=== PATIENT | female | born 1975 | race Two or more races ===

== ENCOUNTER 2020-05-08 12:15 | Outpatient (REF) | payer MEDICAID, SELFPAY | END 2020-05-08 12:16 | disposition home or self-care (01) | LOC: HO.LAB 12:15 | PROVIDERS: Visit Provider Internal Medicine | DX: Z20.828 Contact with and (suspected) exposure to other viral communicable diseases (principal) | CPT/HCPCS: U0003 ==

== ENCOUNTER 2020-06-06 09:46 | Outpatient (REF) | payer MEDICAID, SELFPAY ==
--- NOTE | 2020-06-06 | MM_ITS ---
EXAMINATION: MM SCREENING DIGITAL BREAST TOMOSYNTHESIS, BILATERAL CLINICAL INFORMATION: Screening. Asymptomatic. The lifetime risk of breast cancer based on the Tyrer-Cuzick Model is 6%. COMPARISON: Mammography: 03/28/2019, 03/04/2018, 02/05/2017 TECHNIQUE: Digital breast tomosynthesis is performed in both the craniocaudal and mediolateral oblique views along with computer-aided detection (CAD). Synthesized 2D images are generated from the tomosynthesis. FINDINGS: The breasts are heterogeneously dense, which may obscure small masses (ACR BI-RADS breast composition Category c). There are no significant masses, abnormal calcifications, or other abnormalities. The axilla and skin contours are unremarkable. No significant changes from prior studies. Incidental small intramammary node posterior 9:00 left breast again noted as incidental finding. MM/MM tomosynthesis screening BI IMPRESSION: No mammographic evidence of malignancy. ASSESSMENT: BI-RADS 2: Benign RECOMMENDATION: Routine annual mammography screening. This patient's information was entered into a reminder system with a target due date for their next mammogram.
== END 2020-06-06 09:47 | disposition home or self-care (01) ==
LOC: HO.MAMMO 09:46
PROVIDERS: PCP Family Medicine; Visit Provider Family Medicine
DX: Z12.31 Encounter for screening mammogram for malignant neoplasm of breast (principal)
CPT/HCPCS: 77063; 77067

== ENCOUNTER 2020-07-02 12:50 | Outpatient (REF) | payer MEDICAID, SELFPAY | END 2020-07-02 12:51 | disposition home or self-care (01) | LOC: HO.LAB 12:50 | PROVIDERS: PCP Family Medicine; Visit Provider Internal Medicine | DX: Z20.822 Contact with and (suspected) exposure to COVID-19 (principal) | CPT/HCPCS: 36415; C9803; U0003 ==

== ENCOUNTER 2020-12-26 15:12 | Emergency (ER) | payer MEDICAID, SELFPAY ==
[2020-12-26 16:40] VITALS: BP 126/78; PULSE 99; RESP 16; TEMP 36.9; O2SAT 98; BMI 27.3
--- NOTE | 2020-12-26 16:46 | ED_ITS ---
HPI - General Adult General Chief complaint: Abdominal Pain Stated complaint: wa Time Seen by Provider: 12/26/20 16:45 Source: patient Mode of arrival: ambulatory Limitations: no limitations History of Present Illness HPI narrative: 45 yo female presenting with painful burning with urination for the last 2 days. She also has right lower back pain that comes around to the front of her abdomen. She denies fever, chills, N/V/D. She has a history of UTIs and states this feels the same to prior episodes/ MD complaint: dysuria Onset (ago): day(s) (2) Location: genitals Radiation: back Severity: moderate Quality: burning Pain Consistency: intermittent Relieving factors: none Exacerbating factors: other (urination) Associated symptoms: denies other symptoms Treatments prior to arrival: none Related Data Previous Rx's Medication Instructions Recorded cefuroxime axetil 250 mg PO BID 7 Days #14 tab 12/26/20 phenazopyridine [Pyridium] 100 mg PO TID PRN #5 tab 12/26/20 Allergies Allergy/AdvReac Type Severity Reaction Status Date / Time SEAFOOD Allergy Unknown HIVES Uncoded 12/26/20 16:45 Review of Systems Review of Systems: Constitutional: No Fever, No Chills Cardiovascular: No Chest Pain, No SOB Respiratory: No Cough, No Sputum Gastrointestinal: No Nausea, No Vomiting, No Diarrhea, + abdominal Pain Genitourinary: +Dysuria, + Urinary Frequency, No Hematuria Musculoskeletal: No joint pain, No Myalgias Skin: No Skin Lesions, No rash Neuro: No Weakness, No Numbness, No Dizziness Heme/Lymph: No Bruising, No Lymphadenopathy Endocrine: No Polyuria, No Polydipsia [facility] Past Medical History Medical History (Updated 12/26/20 @ 17:57 by LALA Corona) Hypothyroidism Social History Social History Advance Directives: No Advance Directives Information Provided: No Patient : No Physical Exam Vital Signs: Vital Signs: Last Vital Signs Temp 98.5 F 12/26/20 16:40 Pulse 99 12/26/20 16:40 Resp 16 12/26/20 16:40 BP 126/78 12/26/20 16:40 Pulse Ox 98 12/26/20 16:40 Body Mass Index 27.3 Appearance: Alert. Oriented X3. No acute distress. Eyes: Pupils equal, round and reactive to light. ENT: Pharynx normal. Neck: Normal inspection. Neck supple. CVS: Normal heart rate and rhythm. Pulses normal. Respiratory: No respiratory distress. Breath sounds normal. Abdomen: Soft with moderate suprapubic tenderness.. +BS x4 Skin: Skin warm and dry. Normal skin color. Normal skin turgor. No rashes. Extremities: No lower extremity edema. Neuro: Oriented X 3. Nonfocal Course Course Course Narrative: 45 y/o female hx hypothyroid, hx UTIs presenting with 2 days of right lower back pain that wraps around to her right lower abdomen and pelvic area. +dysuria, +foul smelling urine & cloudy. VS are normal. Likely UTI, doubt pyelo with normal VS. Will get basic labs and UA. Reevaluation(s) Reevaluation #1: UA positive for infection. Not septic. Will treat with PO abx and pyridium. She will f/u with her PCP this week. Medical Decision Making Lab Data Result diagrams: 12/26/20 17:02 12/26/20 17:02 Labs: Lab Results 12/26/20 12/26/20 12/26/20 Range/Units 17:02 17:02 17:02 WBC 11.9 H (4.8-10.8) X10*3/uL RBC 4.52 (4.20-5.50) X10*6/uL Hgb 13.1 (12.0-16.0) g/dl Hct 40.2 (37-47) % MCV 88.9 (80-98) fL MCH 29.0 (27.0-33.0) pg MCHC 32.6 (31.0-35.0) g/dl RDW 14.5 (11.0-16.0) % Plt Count 285 (160-400) X10*3/uL MPV 11.2 (9.4-12.3) fL Immature Gran % (Auto) 0.5 H (0.0-0.4) % Neut % (Auto) 71.0 (45-73) % Lymph % (Auto) 18.2 L (20-40) % [place] % (Auto) 9.9 (2-11) % Eos % (Auto) 0.1 (0-4) % Baso % (Auto) 0.3 (0-2) % Lymph # (Auto) 2.2 (1.2-4.9) X10*3/uL [place] # (Auto) 1.2 (0.1-1.2) X10*3/uL Eos # (Auto) 0.0 (0.0-0.4) X10*3/uL Baso # (Auto) 0.0 (0.0-0.2) X10*3/uL Abs Immat Gran (auto) 0.06 H (0.00-0.03) X10*3/uL Absolute Neuts (auto) 8.5 H (2.0-8.3) X10*3/uL Absolute Nucleated RBC 0.000 (0.0-0.012) X10*3/uL Nucleated RBC % (auto) 0.0 (0.0-0.2) /100WBC Sodium 138 (135-145) mmol/L Potassium 4.4 (3.3-5.1) mmol/L Chloride 106 (96-108) mmol/L Carbon Dioxide 23 (22-29) mmol/L Anion Gap 13 (12-20) BUN 12 (9-16) mg/dL Creatinine 1.17 (0.5-1.4) mg/dL Estim Creat Clear Calc 57.8 Estimated GFR 50 Random Glucose 113 (60-115) mg/dL Calcium 9.2 (8.4-10.2) mg/dL Magnesium 2.1 (1.6-2.6) mg/dL Total Bilirubin 0.9 (0.0-1.0) mg/dL Direct Bilirubin 0.3 (0.0-0.5) mg/dL AST 17 (5-31) U/L ALT 16 (0-31) U/L Alkaline Phosphatase 67 (39-117) U/L Total Protein 8.0 (6.5-8.0) g/dL Albumin 4.2 (3.5-5.0) g/dL Urine Color YELLOW Urine Appearance CLEAR Urine pH 6.0 (5.0-8.0) Ur Specific [place] <= 1.005 (1.005-1.025) Urine Protein NEG (NEG-TRACE) MG/DL Urine Glucose (UA) NEG (NEG) MG/DL Urine Ketones NEG (NEG) MG/DL Urine Blood 2+ H (NEG) Urine Nitrite NEG (NEG) Ur Leukocyte Esterase 3+ H (NEG) Urine RBC 10-14 H (0) /HPF Urine WBC 15-29 H (0-4) /HPF Ur Squamous Epith Cells 1+ /LPF Urine Bacteria 1+ /LPF Discharge Plan Discharge Clinical Impression: UTI (urinary tract infection) Qualifiers: Urinary tract infection type: acute cystitis Hematuria presence: with hematuria Qualified Code(s): N30.01 - Acute cystitis with hematuria Patient Disposition: Home, Self-Care Instructions: Urinary Tract Infection in Women (ED) Additional Instructions: Your labs and urine test show a urinary tract infection Drink plenty of water and stay hydrated Take Motrin and/or Tylenol as needed for pain Take the antibiotic as prescribed x1 week Take prescribed Pyridium for bladder pain - this can turn your urine orange and that is normal Follow up with your doctor this week If you develop new or worsening symptoms call 911 or come back to the ER for further evaluation. Prescriptions: New cefuroxime axetil 250 mg tablet 250 mg PO BID 7 Days Qty: 14 RF: 0 phenazopyridine [Pyridium] 100 mg tablet 100 mg PO TID PRN (Reason: pain) Qty: 5 RF: 0 Referrals: Kate Penn MD [Primary Care Provider] - 2 days (UTI) Print Language: New Zealander
[2020-12-26 17:08] LABS: MANUAL DIFF FLAG NO
[2020-12-26 17:09] LABS: Basophils Percent Auto 0.3 % (0-2); Eosinophils Percent Auto 0.1 % (0-4); Hematocrit 40.2 % (37-47); Hemoglobin 13.1 g/dl (12.0-16.0); Imm Gran Abs Auto 0.06 X10*3/uL (0.00-0.03); Imm Gran Pct Auto 0.5 % (0.0-0.4); Lymphocytes Absolute Auto 2.2 X10*3/uL (1.2-4.9); Lymphocytes Percent Auto 18.2 % (20-40); Mean Corpuscular HGB Conc 32.6 g/dl (31.0-35.0); Mean Corpuscular Volume 88.9 fL (80-98); Mean Platelet Volume 11.2 fL (9.4-12.3); Monocytes Absolute Auto 1.2 X10*3/uL (0.1-1.2); Monocytes Percent Auto 9.9 % (2-11); Neutrophils Absolute Auto 8.5 X10*3/uL (2.0-8.3); Platelet Count 285 X10*3/uL (160-400); Red Blood Count 4.52 X10*6/uL (4.20-5.50); Red Cell Distribution Width 14.5 % (11.0-16.0); White Blood Count 11.9 X10*3/uL (4.8-10.8)
[2020-12-26 17:14] LABS: Glucose Urine UA NEG (NEG); Leukocyte Esterase Urine 3+ (NEG); Nitrite Urine NEG (NEG); Specific Gravity - Urine <= 1.005 (1.005-1.025); UACC Culture Trigger YES; Urine Blood 2+ (NEG); Urine Ketones NEG (NEG); Urine Protein NEG (NEG-TRACE)
[2020-12-26 17:17] LABS: Appearance Urine CLEAR; Color Urine YELLOW
[2020-12-26 17:25] LABS: Bacteria Urine 1+ /LPF; Squamous Epithelial Cell Urine 1+ /LPF
[2020-12-26 17:40] LABS: Alanine Aminotransferase 16 U/L (0-31); Albumin Level 4.2 g/dL (3.5-5.0); Alkaline Phosphatase 67 U/L (39-117); Anion Gap 13 (12-20); Aspartate Amino Transferase 17 U/L (5-31); Bilirubin Direct 0.3 mg/dL (0.0-0.5); Bilirubin Total 0.9 mg/dL (0.0-1.0); Blood Urea Nitrogen 12 mg/dL (9-16); Calcium 9.2 mg/dL (8.4-10.2); Carbon Dioxide 23 mmol/L (22-29); Chloride 106 mmol/L (96-108); Creatinine Clr Calc Pharmacy 57.8; Estimated Glomerular Filt Rate 50; Glucose Random 113 mg/dL (60-115); Magnesium 2.1 mg/dL (1.6-2.6); Potassium 4.4 mmol/L (3.3-5.1); Sodium 138 mmol/L (135-145)
== END 2020-12-26 19:11 | disposition home or self-care (01) ==
PROVIDERS: Physician Assistant; Emergency Provider Emergency Medicine; PCP Family Medicine
DX: N30.01 Acute cystitis with hematuria (principal)
CPT/HCPCS: 36415; 80048; 80076; 81001; 81003; 83735; 85025; 87086; 87088; 87186; 99283

== ENCOUNTER 2021-05-29 15:26 | Emergency (ER) | payer MEDICAID, SELFPAY ==
--- NOTE | ~2021-05-29 | US_ITS ---
EXAMINATION: US PELVIS CLINICAL INFORMATION: Menorrhagia with history of fibroids COMPARISON: Pelvic ultrasound 08/14/2017 TECHNIQUE: Ultrasound of the pelvis is performed using both transabdominal and transvaginal transducers along with Doppler. Transvaginal imaging is performed due to inadequate visualization transabdominally. FINDINGS: Uterus: The uterus is anteverted and measures 10.4 x 5.0 x 4.7 cm. A 1.1 cm subserosal fundal fibroid is seen, unchanged when compared to the prior study. This is not near the endometrial cavity and therefore is probably not responsible for the patient's menorrhagia. Nabothian cysts are present in the cervix The double wall endometrial thickness is 7 mm. Other than the fibroid, the uterus is smooth in contour and has normal myometrial echogenicity. Adnexa: Both ovaries are visualized. There is normal color flow to the adnexa. There is no ovarian torsion. There is no pelvic ascites or fluid collection. Right ovary measures 1.8 x 0.9 x 1.2 cm. Left ovary measures 1.6 x 1.7 x 1.4 cm. US/US pelvic and transvaginal IMPRESSION: Negative exam aside from stable small subserosal fundal fibroid.
[2021-05-29 15:39] VITALS: BP 106/55; PULSE 75; RESP 18; TEMP 36.8; O2SAT 97; BMI 28.3
[2021-05-29 17:57] LABS: MANUAL DIFF FLAG NO
[2021-05-29 18:01] LABS: Basophils Percent Auto 0.5 % (0-2); Eosinophils Absolute Auto 0.1 X10*3/uL (0.0-0.4); Eosinophils Percent Auto 0.7 % (0-4); Hematocrit 40.3 % (37.0-47.0); Hemoglobin 13.1 g/dl (12.0-16.0); Imm Gran Abs Auto 0.02 X10*3/uL (0.00-0.03); Imm Gran Pct Auto 0.2 % (0.0-0.4); Lymphocytes Absolute Auto 2.5 X10*3/uL (1.2-4.9); Lymphocytes Percent Auto 28.3 % (20-40); Mean Corpuscular HGB Conc 32.5 g/dl (31.0-35.0); Mean Corpuscular Hemoglobin 29.1 pg (27.0-33.0); Mean Corpuscular Volume 89.6 fL (80.0-98.0); Mean Platelet Volume 11.1 fL (9.4-12.3); Monocytes Absolute Auto 0.8 X10*3/uL (0.1-1.2); Monocytes Percent Auto 9.7 % (2-11); Neutrophils Absolute Auto 5.3 x10*3/uL (2.0-8.3); Neutrophils Percent Auto 60.6 % (45-73); Platelet Count 281 X10*3/uL (160-400); Red Cell Distribution Width 14.4 % (11.0-16.0); White Blood Count 8.7 X10*3/uL (4.8-10.8)
[2021-05-29 18:10] LABS: Anion Gap 11 (12-20); Blood Urea Nitrogen 13 mg/dL (9-16); Calcium 9.7 mg/dL (8.4-10.2); Carbon Dioxide 26 mmol/L (22-29); Chloride 108 mmol/L (96-108); Creatinine Clr Calc Pharmacy 72.1; Estimated Glomerular Filt Rate > 60; Glucose Random 94 mg/dL (60-115); Potassium 4.6 mmol/L (3.3-5.1); Sodium 140 mmol/L (135-145)
--- NOTE | 2021-05-29 21:14 | ED_ITS ---
HPI - Female Genitourinary General Chief complaint: Vaginal Bleeding Stated complaint: heavy menstrual Source: patient Mode of arrival: ambulatory Limitations: no limitations History of Present Illness HPI Narrative: 45-year-old female presents with excessive vaginal bleeding. States that she has had 3 menstrual cycles with excessive bleeding and large clots this month. Is reporting abdominal cramping and pain with dizziness. MD elicited complaint: vaginal bleeding and pelvic pain Onset (ago): week(s) Location of symptoms: vaginal Severity: moderate Severity scale (1-10): 5 Quality of pain: cramping Consistency: intermittent Vaginal bleeding: heavy, dark red and clots Exacerbating factors: menstrual period Relieving factors: none Associated symptoms: weakness Treatment prior to arrival: none Sexual activity: No Patient : No Related Data Previous Rx's Medication Instructions Recorded cefuroxime axetil 250 mg tablet 250 mg PO BID 7 Days #14 tab 12/26/20 phenazopyridine 100 mg tablet 100 mg PO TID PRN #5 tab 12/26/20 (Pyridium) ibuprofen 600 mg tablet 600 mg PO Q6H PRN #60 tab 05/29/21 Allergies Allergy/AdvReac Type Severity Reaction Status Date / Time SEAFOOD Allergy Unknown HIVES Uncoded 12/26/20 16:45 Review of Systems Review of Systems: Constitutional: No Fever, No Chills ENT/Mouth: No sore throat, No Rhinorrhea Eyes: No Eye Pain, No Redness Cardiovascular: No Chest Pain, No SOB Respiratory: No Cough, No Sputum, No Wheezing Gastrointestinal: positive Nausea, No Vomiting, No Diarrhea, positive abdominal cramping Genitourinary: positive irregular bleeding, No Dysuria, No Urinary Frequency, positive pelvic pain Musculoskeletal: No Myalgias Skin: No rash Neuro: No Weakness, No Headache Psych: No Anxiety/Panic, No Depression Heme/Lymph: No bruising, No Lymphadenopathy Endocrine: No Polyuria, No Polydipsia Yes all other systems are reviewed and are negative PMFSH Past Medical History Attestation statement: The following information was validated with the patient. Source: old records reviewed Medical History Asthma Hypothyroidism Social History Social History Advance Directives: No Advance Directives Information Provided: No Patient : No Physical Exam Vital Signs: Vital Signs: Last Vital Signs Temp 98.2 F 05/29/21 15:39 Pulse 62 05/29/21 22:43 Resp 17 05/29/21 22:43 BP 121/51 L 05/29/21 22:43 Pulse Ox 98 05/29/21 22:43 BMI result Body Mass Index 28.3 Appearance: Alert. Oriented X3. No acute distress. Eyes: Pupils equal, round and reactive to light. ENT: Pharynx normal. Neck: Normal inspection. Neck supple. CVS: Normal heart rate and rhythm. Pulses normal. Respiratory: No respiratory distress. Breath sounds normal. Abdomen: Soft and nontender. Skin: Skin warm and dry. Normal skin color. Normal skin turgor. Extremities: No lower extremity edema. Gait well-balanced well coordinated. Neuro: No motor deficit. No sensory deficit. Cranial nerves 2-12 intact. Course Course Course Narrative: 45-year-old female presents with 3rd menstrual cycle this month with large clots and excessive bleeding. Vital signs are stable and within normal limits. Patient is asymptomatic. Abdominal exam is negative. CBC stable within normal limits. No indication of anemia. Will order pelvic ultrasound as patient does have history of fibroids. 11:30 p.m. pelvic ultrasound negative for acute findings. Does show a stable unchanged fibroid from 2018. Patient does not have a enrichment teacher, will refer to Dr. Dumont for further evaluation. ultrasonic hand solderer utilized for all correspondence. Google translate utilized for discharge instructions. MDM - Female Genitourinary Differential Diagnosis Differential diagnosis: Likely dysmenorrhea Medical Records Attestation: I reviewed the patient's medical records. Lab Data Attestation: I reviewed the patient's lab results. Result diagrams: 05/29/21 17:49 05/29/21 17:49 Labs: Lab Results 05/29/21 05/29/21 05/29/21 Range/Units 17:49 17:49 21:51 WBC 8.7 (4.8-10.8) X10*3/uL RBC 4.50 (4.20-5.50) X10*6/uL Hgb 13.1 (12.0-16.0) g/dl Hct 40.3 (37.0-47.0) % MCV 89.6 (80.0-98.0) fL MCH 29.1 (27.0-33.0) pg MCHC 32.5 (31.0-35.0) g/dl RDW 14.4 (11.0-16.0) % Plt Count 281 (160-400) X10*3/uL MPV 11.1 (9.4-12.3) fL Immature Gran % (Auto) 0.2 (0.0-0.4) % Neut % (Auto) 60.6 (45-73) % Lymph % (Auto) 28.3 (20-40) % [place] % (Auto) 9.7 (2-11) % Eos % (Auto) 0.7 (0-4) % Baso % (Auto) 0.5 (0-2) % Lymph # (Auto) 2.5 (1.2-4.9) X10*3/uL [place] # (Auto) 0.8 (0.1-1.2) X10*3/uL Eos # (Auto) 0.1 (0.0-0.4) X10*3/uL Baso # (Auto) 0.0 (0.0-0.2) X10*3/uL Abs Immat Gran (auto) 0.02 (0.00-0.03) X10*3/uL Absolute Neuts (auto) 5.3 (2.0-8.3) x10*3/uL Absolute Nucleated RBC 0.000 (0.0-0.012) X10*3/uL Nucleated RBC % (auto) 0.0 (0.0-0.2) /100WBC Sodium 140 (135-145) mmol/L Potassium 4.6 (3.3-5.1) mmol/L Chloride 108 (96-108) mmol/L Carbon Dioxide 26 (22-29) mmol/L Anion Gap 11 L (12-20) BUN 13 (9-16) mg/dL Creatinine 0.92 (0.5-1.4) mg/dL Estim Creat Clear Calc 72.1 Estimated GFR > 60 Random Glucose 94 (60-115) mg/dL Calcium 9.7 (8.4-10.2) mg/dL Influenza Type A (PCR) NEGATIVE (Negative) Influenza Type B (PCR) NEGATIVE (Negative) RSV RNA Qual (PCR) NEGATIVE (Negative) SARS-CoV-2 RNA (RT-PCR) NEGATIVE (Negative) Imaging Data Pelvic ultrasound: Attestation: I personally reviewed and interpreted this imaging study as follows: Radiologist's impression: EXAMINATION:? US PELVIS CLINICAL INFORMATION:? Menorrhagia with history of fibroids COMPARISON: Pelvic ultrasound 08/14/2017 TECHNIQUE: Ultrasound of the pelvis is performed using both transabdominal and transvaginal transducers along with Doppler. Transvaginal imaging is performed due to inadequate visualization transabdominally. FINDINGS: Uterus: The uterus is anteverted and measures 10.4 x 5.0 x 4.7 cm.? A 1.1 cm subserosal fundal fibroid is seen, unchanged when compared to the prior study. This is not near the endometrial cavity and therefore is probably not responsible for the patient's menorrhagia. Nabothian cysts are present in the cervix The double wall endometrial thickness is 7 mm.? Other than the fibroid, the uterus is smooth in contour and has normal myometrial echogenicity. Adnexa: Both ovaries are visualized. There is normal color flow to the adnexa. There is no ovarian torsion.? There is no pelvic ascites or fluid collection. Right ovary measures 1.8 x 0.9 x 1.2 cm. Left ovary measures 1.6 x 1.7 x 1.4 cm. US/US pelvic and transvaginal IMPRESSION: Negative exam aside from stable small subserosal fundal fibroid. Discharge Plan Discharge Clinical Impression: Menometrorrhagia Patient Disposition: Home, Self-Care Instructions: Dysfunctional Uterine Bleeding (ED), Menorrhagia (ED) Additional Instructions: Se le evalu? por sangrado vaginal anormal y excesivo. La ecograf?a p?lvica indica fibromas uterinos que no morgan cambiado en comparaci?n con [place] ecograf?a anterior el 2017. Juan un seguimiento con pastrycook's assistant. Le he referido al Dr. Dumont. Por favor llame y solicite ralph zabrina. [place] Motrin 600 mg cada 6 horas seg?n sea necesario para controlar el dolor. Emilie por elegir courtney departamento de emergencias para [place] evaluaci?n. Juan un seguimiento con [place] m?dico de atenci?n primaria seg?n sea necesario. Regrese al departamento de emergencias por cualquier s?ntoma nuevo, preocupante o que empeore. You were evaluated for abnormal and excessive vaginal bleeding. Pelvic ultrasound indicates uterine fibroids that have not changed when compared to your prior ultrasound on August 14, 2017. Please follow-up with pastrycook's assistant. I have referred you to Dr. Dumont. Please call and request an appointment. Please take Motrin 600 mg every 6 hours as needed for pain management. Thank you for choosing this emergency department for evaluation. Please follow-up with primary care physician as needed. Return to the emergency department for any new, concerning, or worsening symptoms. Prescriptions: New ibuprofen 600 mg tablet 600 mg PO Q6H PRN (Reason: pain) Qty: 60 RF: 0 No Action cefuroxime axetil 250 mg tablet 250 mg PO BID 7 Days Qty: 14 RF: 0 phenazopyridine [Pyridium] 100 mg tablet 100 mg PO TID PRN (Reason: pain) Qty: 5 RF: 0 Referrals: Rene Dumont MD [Physician] - 2 days (Dysfunctional uterine bleeding) Interventions: ED Discharge Assessment Last Done: 05/29/21 23:51
[2021-05-29 22:35] LABS: Influenza A PCR NEGATIVE (Negative); Influenza B PCR NEGATIVE (Negative); Resp Syncy Virus RNA Qual PCR NEGATIVE (Negative); SARS COV2 PCR INHOUSE NEGATIVE (Negative)
[2021-05-29 22:43] VITALS: BP 121/51; PULSE 62; RESP 17; O2SAT 98
[2021-05-29] MEDS: Acetaminophen 325 MG TABLET 650 MG PO (22:45)
--- NOTE | 2021-05-29 22:51 | PC.NURSE ---
this rn to bedside, assisting primary RN. pt aaox4, [place] speaking primarily but able to effectively communicate in [place]. Pt eating soup when this RN enters room. This RN encourages pt to remain NPO until all tests/images have resulted and it is safe/ok for pt to eat. Pt expresses understanding. Pt medicated per AUG. Pt requests can you give me something to help me relax? This RN makes Daniely MERGERS AND ACQUISITIONS MANAGER aware of pt's request. No additional orders at this time. Stretcher in lowest locked position, rails raised, call moya within reach.
== END 2021-05-29 23:57 | disposition home or self-care (01) ==
PROVIDERS: Nurse Practitioner Family; Emergency Provider Internal Medicine
DX: N92.1 Excessive and frequent menstruation with irregular cycle (principal); Z79.899 Other long term (current) drug therapy; Z20.822 Contact with and (suspected) exposure to COVID-19
CPT/HCPCS: 0241U; 36415; 76830; 76856; 80048; 85025; 99284

== ENCOUNTER 2021-06-24 11:18 | Outpatient (REF) | payer MEDICAID, SELFPAY ==
[2021-06-24 15:14] LABS: CT PCR NOT DETECTED (Not Detect.); NG PCR NOT DETECTED (Not Detect.)
[2021-06-28 13:37] LABS: HPV mRNA E6/E7 rflx Not Detected (Not Detected)
== END 2021-06-24 11:19 | disposition home or self-care (01) ==
LOC: HO.LAB 11:18
PROVIDERS: Visit Provider Obstetrics & Gynecology
DX: Z01.419 Encounter for gynecological examination (general) (routine) without abnormal findings (principal); N93.9 Abnormal uterine and vaginal bleeding, unspecified; Z11.3 Encounter for screening for infections with a predominantly sexual mode of transmission; Z11.8 Encounter for screening for other infectious and parasitic diseases; Z11.51 Encounter for screening for human papillomavirus (HPV); J45.909 Unspecified asthma, uncomplicated; E03.9 Hypothyroidism, unspecified; Z91.013 Allergy to seafood
CPT/HCPCS: 87491; 87591; 87624; 88142; 99202

== ENCOUNTER 2021-07-02 11:25 | Outpatient (REF) | payer MEDICAID, SELFPAY ==
--- NOTE | ~2021-07-02 | MM_ITS ---
EXAMINATION: MM SCREENING DIGITAL BREAST TOMOSYNTHESIS, BILATERAL CLINICAL INFORMATION: Screening. Asymptomatic. The lifetime risk of breast cancer based on the Tyrer-Cuzick Model is 14%. COMPARISON: Mammography: 06/06/2020, 03/28/2019, 03/04/2018 TECHNIQUE: Digital breast tomosynthesis is performed in both the craniocaudal and mediolateral oblique views along with computer-aided detection (CAD). Synthesized 2D images are generated from the tomosynthesis. FINDINGS: The breasts are heterogeneously dense, which may obscure small masses (ACR BI-RADS breast composition Category c). There are no significant masses, abnormal calcifications, or other abnormalities. Parenchymal pattern is similar to prior studies. There is no developing density or architectural abnormality. The axilla and skin contours are unremarkable. No significant changes. MM/MM tomosynthesis screening BI IMPRESSION: No significant changes from prior studies. ASSESSMENT: BI-RADS 1: Negative RECOMMENDATION: Routine annual mammography screening. This patient's information was entered into a reminder system with a target due date for their next mammogram.
== END 2021-07-02 11:26 | disposition home or self-care (01) ==
LOC: HO.MAMMO 11:25
PROVIDERS: Visit Provider Family Medicine
DX: Z12.31 Encounter for screening mammogram for malignant neoplasm of breast (principal)
CPT/HCPCS: 77063; 77067

== ENCOUNTER 2021-07-08 08:36 | Outpatient (REF) | payer MEDICAID, SELFPAY | END 2021-07-08 08:37 | disposition home or self-care (01) | LOC: HO.LAB 08:36 | PROVIDERS: PCP Family Medicine; Visit Provider Obstetrics & Gynecology | DX: N93.9 Abnormal uterine and vaginal bleeding, unspecified (principal) | CPT/HCPCS: 58100; 88305 ==

== ENCOUNTER → 2021-07-22 13:59 | Outpatient (BNVA) | payer MEDICAID, SELFPAY | PROVIDERS: Visit Provider Obstetrics & Gynecology ==

== ENCOUNTER 2021-07-23 11:11 | Outpatient (REF) | payer MEDICAID, SELFPAY ==
[2021-07-23 12:41] LABS: HCG Quantitative < 2 mIU/mL; TSH reflex Free T4 1.73 uIU/mL (0.32-4.0)
== END 2021-07-23 11:12 | disposition home or self-care (01) ==
LOC: HO.LAB 11:11
PROVIDERS: PCP Family Medicine; Visit Provider Obstetrics & Gynecology
DX: N93.9 Abnormal uterine and vaginal bleeding, unspecified (principal)
CPT/HCPCS: 36415; 84443; 84702

== ENCOUNTER → 2021-08-05 11:43 | Outpatient (BNVA) | payer MEDICAID, SELFPAY | PROVIDERS: Visit Provider Obstetrics & Gynecology ==

== ENCOUNTER 2022-04-03 13:17 | Outpatient (REF) | payer MEDICAID, SELFPAY ==
--- NOTE | ~2022-04-03 | XR_ITS ---
EXAMINATION: XR LUMBOSACRAL SPINE CLINICAL INFORMATION: Low back pain COMPARISON: 08/14/2012 TECHNIQUE: Three views of the lumbosacral spine. FINDINGS: The vertebral bodies and posterior elements are unremarkable. The disc spaces are preserved and the vertebral alignment is normal. The paraspinal soft tissues are normal. XR/XR lumbar spine 2-3V IMPRESSION: Unremarkable examination.
== END 2022-04-03 13:18 | disposition home or self-care (01) ==
LOC: HO.XRAY 13:17
PROVIDERS: Absent Provider Family Medicine; PCP Family Medicine; Visit Provider Emergency Medicine
DX: M54.50 Low back pain, unspecified (principal)
CPT/HCPCS: 72100

== ENCOUNTER 2022-07-07 10:47 | Outpatient (REF) | payer MEDICAID, SELFPAY ==
--- NOTE | ~2022-07-07 | MM_ITS ---
EXAMINATION: MM SCREENING DIGITAL BREAST TOMOSYNTHESIS, BILATERAL CLINICAL INFORMATION: Screening. Asymptomatic. Family history breast cancer, sister. The lifetime risk of breast cancer based on the Tyrer-Cuzick Model is 13%. COMPARISON: Mammography: 07/02/2021, 06/06/2020, 03/28/2019 TECHNIQUE: Digital breast tomosynthesis is performed in both the craniocaudal and mediolateral oblique views along with computer-aided detection (CAD). Synthesized 2D images are generated from the tomosynthesis. FINDINGS: The breasts are heterogeneously dense, which may obscure small masses (ACR BI-RADS breast composition Category c). There are no significant masses, abnormal calcifications, or other abnormalities. Scattered minor asymmetries are similar to prior studies. No developing density or architectural changes. No significant changes from prior study. The axilla and skin contours are unremarkable. MM/MM tomosynthesis screening BI IMPRESSION: No mammographic evidence of malignancy. ASSESSMENT: BI-RADS 2: Benign RECOMMENDATION: Routine annual mammography screening. This patient's information was entered into a reminder system with a target due date for their next mammogram.
== END 2022-07-07 10:48 | disposition home or self-care (01) ==
LOC: HO.MAMMO 10:47
PROVIDERS: PCP Family Medicine; Visit Provider Family Medicine
DX: Z12.31 Encounter for screening mammogram for malignant neoplasm of breast (principal)
CPT/HCPCS: 77063; 77067

== ENCOUNTER 2023-02-14 11:54 | Emergency (ER) | payer MEDICAID, SELFPAY ==
--- NOTE | ~2023-02-14 | CT_ITS ---
EXAMINATION: CT ABDOMEN AND PELVIS WITHOUT CONTRAST CLINICAL INFORMATION: Back pain. Urinary hesitancy. COMPARISON: Pelvic ultrasonography 06/29/2020. TECHNIQUE: Multidetector volumetric imaging was performed from the superior aspect of the liver through the pubic symphysis. Sagittal and coronal reformatted images were obtained on the technologist's workstation. This CT examination was performed using dose optimization techniques as appropriate, variously including the following: *Automated exposure control *Adjustment of mA and/or kV according to patient size (this includes techniques or standardized protocols for targeted exams where dose is matched to indication/reason for exam; i.e. extremities or head) *Use of iterative reconstruction technique DLP: 500 mGy-cm FINDINGS: LUNG BASES: The visualized lung bases are unremarkable. LIVER, GALLBLADDER, AND BILIARY TREE: The liver is normal in size, shape, and attenuation. No focal hepatic lesion or biliary ductal dilatation is present. The gallbladder is unremarkable with no evidence of radiopaque gallstones, gallbladder wall thickening, or obvious pericholecystic inflammatory changes. PANCREAS: Unremarkable. SPLEEN: Unremarkable. ADRENAL GLANDS: Unremarkable. KIDNEYS AND URETERS: The kidneys are normal in size, shape, and attenuation. No hydronephrosis, hydroureter, or calculi seen. No perinephric stranding. BLADDER: Unremarkable. GASTROINTESTINAL TRACT: Mild sigmoid diverticulosis. A structure likely representing a diminutive, normal appendix is noted the base of the cecum. No adjacent soft tissue inflammatory changes. ABDOMINAL WALL: No significant hernia is appreciated. LYMPH NODES: Normal. VASCULAR: Unremarkable. PELVIC VISCERA: Unremarkable. OSSEOUS STRUCTURES: Partial visualization is made of an at least mild central disc protrusion at L5-S1. CT/CT abdomen pelvis wo IV con IMPRESSION: 1. No acute abnormalities. 2. No urolithiasis. No hydronephrosis. 3. Mild sigmoid diverticulosis. 4. Partial visualization of an at least mild central disc protrusion at L5-S1.
--- NOTE | ~2023-02-14 | XR_ITS ---
EXAMINATION: XR LUMBOSACRAL SPINE CLINICAL INFORMATION: Reason for Exam Pain COMPARISON: Lumbar spine radiographs 04/03/2022 TECHNIQUE: 3 views of the lumbar spine FINDINGS: 5 nonrib-bearing lumbar-type vertebral bodies. Vertebral body heights are maintained. Alignment is maintained. Minimal degenerative disc disease at L4-L5 with degenerative endplate spurring similar to prior. Paravertebral soft tissues are unremarkable. XR/XR lumbar spine 2-3V IMPRESSION: * Minimal degenerative disc disease in the lower lumbar spine.
[2023-02-14 12:30] VITALS: BP 120/69; PULSE 69; RESP 18; TEMP 36.6; O2SAT 98; BMI 28.0
--- NOTE | 2023-02-14 12:35 | ED.BACK ---
HPI - Back Pain/Injury General Chief Complaint: General Medical Stated Complaint: back pain Time Seen by Provider: 02/14/23 18:00 Source: patient and RN notes reviewed Mode of arrival: ambulatory Limitations: no limitations History of Present Illness HPI Narrative: This is a 47-year-old female presenting to the emergency department with complaints of low back pain times several weeks, worsening over the last several days. Patient denies any recent trauma or injury to her back. Patient reports that she has tried [id number] medications without any relief. She reports that her pain worsens with movement and with palpation. She also endorses urinary frequency and is only urinating in small amounts. Denies dysuria. Denies fevers, chills, chest pain, shortness of breath, abdominal pain, nausea, vomiting or diarrhea. No saddle anesthesia, no bladder or bowel incontinence. Denies taking any medications at home to treat her current symptoms here no other complaints or concerns at this time. MD elicited complaint: back pain Timing: constant Severity: moderate Similar Symptoms Previously: No Quality: aching Radiation: none Exacerbating factors: movement Relieving factors: none Associated symptoms: increased urinary frequency Related Data Home Medications Medication Instructions Recorded Confirmed levothyroxine 50 mcg tablet 50 mcg PO DAILY 06/24/21 (Synthroid) Previous Rx's Medication Instructions Recorded cefuroxime axetil 250 mg tablet 250 mg PO BID 7 days #14 tabs 12/26/20 phenazopyridine 100 mg tablet 100 mg PO TID PRN pain 6 doses #5 12/26/20 (Pyridium) tabs ibuprofen 600 mg tablet 600 mg PO Q6H PRN pain #60 tabs 05/29/21 acetaminophen 325 mg tablet 650 mg (2 x 325 mg) PO Q6H PRN 02/14/23 (Tylenol) pain #30 tabs cyclobenzaprine 5 mg tablet 5 mg PO TID #14 tabs 02/14/23 ibuprofen 600 mg tablet 600 mg PO Q6H PRN pain #30 tabs 02/14/23 lidocaine 5 % topical patch 1 patch topical DAILY #30 ea 02/14/23 (Lidoderm) Allergies Allergy/AdvReac Type Severity Reaction Status Date / Time SEAFOOD Allergy Unknown HIVES Uncoded 02/14/23 12:30 Review of Systems Review of Systems: Yes all other systems are reviewed and are negative Constitutional: Constitutional: Reports as per HPI [facility] Past Medical History Medical History Insomnia Migraines Smoker Asthma Hypothyroidism Surgical History History of section Social History Social History Alcohol intake: never Smoked in Last 30 Days: No Use of substances other than those prescribed or required for medical reasons: No Advance Directives: No Advance Directives Information Provided: No Physical Exam Vital Signs: Vital Signs: Last Vital Signs Temp 98.1 F 02/14/23 19:06 Pulse 72 02/14/23 19:06 Resp 18 02/14/23 23:15 BP 126/89 02/14/23 19:06 Pulse Ox 99 02/14/23 19:06 O2 Del Method Room Air 02/14/23 19:06 BMI result Body Mass Index 28.0 Const: General: cooperative, comfortable and no acute distress Orientation/consciousness: patient oriented x3 Limitations: no limitations HEENT: Head: Yes normal to inspection, Yes normocephalic and Yes atraumatic Ears: hearing grossly normal bilaterally General nose exam: Normal external nose present Face and sinus: Yes normal facial exam Mouth: Normal oral and palatal mucosa present, oropharynx normal and moist mucous membranes Throat: Yes posterior oropharynx normal Eyes: General: appearance normal, both eyes and all related structures Eyelids: Yes eyelids normal Conjunctivae: conjunctivae normal Sclerae: sclerae normal Pupils: Equal, round and reactive pupils present EOM: EOMs intact bilaterally Neck: Neck: Yes normal visual inspection, Yes full ROM and Yes no lymphadenopathy Lymphatic: no lymphadenopathy noted Chest: Chest palpation & inspection: normal inspection of the chest Resp: Effort & Inspection: normal respiratory effort and able to speak in complete sentences Auscultation: clear to auscultation bilaterally, no crackles, no rales, no rhonchi and no wheezes Cardio: Rate: regular rate Rhythm: regular rhythm Heart sounds: S1 normal heart sound present and S2 normal heart sound present GI: Other: Abdomen is soft, nontender, nondistended. No suprapubic tenderness on exam. Inspection: Yes normal to inspection : General: Yes CVA tenderness Back/Spine/Pelvis: Back: CVA tenderness Skin: General skin exam: no rashes or lesions noted Trauma: no lacerations or abrasions Wounds: no wounds Neuro: General: patient oriented x3 and moves all extremities Cranial nerves: Yes Equal, round and reactive pupils present Extrem: General: Yes normal to inspection Right upper extremity: normal to inspection Left upper extremity: normal to inspection Right lower extremity: normal to inspection Left lower extremity: normal to inspection Course Course Course Narrative: Patient complains of back pain, trouble urinating and 1 day of constipation no abdominal pain, no injury This is rapid medical exam done in triage with labs ordered as well as bladder scan Full evaluation by provider in the ER to review all results and do complete H and P and dispo patient to follow Medications Administered Discontinued Medications Generic Name Dose Route Start Last Admin Trade Name Kathie PRN Reason Stop Dose Admin Cyclobenzaprine HCl 5 mg 02/14/23 23:26 02/14/23 23:43 Cyclobenzaprine Hcl 5 Mg Tablet PO 02/14/23 23:27 5 mg ONCE ONE Administration Sodium Chloride 1,000 mls @ 999 mls/hr 02/14/23 19:21 02/14/23 20:55 Ns IV 02/14/23 20:21 Infused .Q1H1M ONE Infusion Ketorolac Tromethamine 30 mg 02/14/23 19:21 02/14/23 19:41 Ketorolac Tromethamine 30 Mg/Ml Vial IVPUSH 02/14/23 19:22 30 mg ONCE ONE Administration Medical Decision Making Medical Decision Making [facility] Narrative: 47-year-old female presenting to the emergency department for evaluation of low back pain x 2 weeks worsening over the last several days. On arrival, all vital signs within normal limits. Patient has CVA tenderness on examination, concerning for nephrolithiasis. Patient also reporting some urinary retention. Postvoid bladder scan was obtained with 6 mL of urine left in bladder. CT revealing no kidney stones. Symptoms likely musculoskeletal in nature, patient discharged with muscle relaxers, ibuprofen and Tylenol. Patient has no red flag back symptoms on examination to suggest cauda equina syndrome. Advised to return with any new or worsening symptoms. Differential Diagnosis Differential Diagnoses: The differential diagnosis associated with the presentation includes Urinary tract infection, cauda equina syndrome-unlikely, nephrolithiasis, muscle strain, sciatica Admission/Observation Consideration of admission/observation: Escalation of care including admission/observation considered Patient would have been admitted to the hospital had her work up had any findings where hospital admission was appropriate and her clinical presentation warranted hospital admission. Lab Data MDM Lab Attestation statement: I reviewed the patient's lab results. No leukocytosis, stable H&H urine unremarkable 02/14/23 19:38 02/14/23 19:38 Labs: Lab Results 02/14/23 02/14/23 Range/Units 17:58 19:38 WBC 7.7 (4.8-10.8) X10*3/uL RBC 4.68 (4.20-5.50) X10*6/uL Hgb 13.2 (12.0-16.0) g/dl Hct 40.4 (37.0-47.0) % MCV 86.3 (80.0-98.0) fL MCH 28.2 (27.0-33.0) pg MCHC 32.7 (31.0-35.0) g/dl RDW 14.5 (11.0-16.0) % Plt Count 245 (160-400) X10*3/uL MPV 11.3 (9.4-12.3) fL Immature Gran % (Auto) 0.1 (0.0-0.4) % Neut % (Auto) 32.6 L (45-73) % Lymph % (Auto) 55.0 H (20-40) % [place] % (Auto) 10.5 (2-11) % Eos % (Auto) 1.4 (0-4) % Baso % (Auto) 0.4 (0-2) % Lymph # (Auto) 4.3 (1.2-4.9) X10*3/uL [place] # (Auto) 0.8 (0.1-1.2) X10*3/uL Eos # (Auto) 0.1 (0.0-0.4) X10*3/uL Baso # (Auto) 0.0 (0.0-0.2) X10*3/uL Abs Immat Gran (auto) 0.01 (0.00-0.03) X10*3/uL Absolute Neuts (auto) 2.5 (2.0-8.3) x10*3/uL Absolute Nucleated RBC 0.000 (0.0-0.012) X10*3/uL Nucleated RBC % (auto) 0.0 (0.0-0.2) /100WBC Sodium 141 (135-145) mmol/L Potassium 4.7 (3.3-5.1) mmol/L Chloride 107 (96-108) mmol/L Carbon Dioxide 27 (22-29) mmol/L Anion Gap 12 (12-20) BUN 13 (9-16) mg/dL Creatinine 1.01 (0.5-1.4) mg/dL Estim Creat Clear Calc 63.9 Estimated GFR 58 Random Glucose 89 (60-115) mg/dL Calcium 9.9 (8.4-10.2) mg/dL Total Bilirubin 0.2 (0.0-1.0) mg/dL Direct Bilirubin < 0.2 (0.0-0.5) mg/dL AST 19 (5-31) U/L ALT 17 (0-31) U/L Alkaline Phosphatase 61 (39-117) U/L Total Protein 8.0 (6.5-8.0) g/dL Albumin 4.1 (3.5-5.0) g/dL Lipase 36 (8-78) U/L Urine Color Yellow Urine Appearance Clear Urine pH 7.0 (5.0-9.0) Ur Specific [place] 1.010 (1.005-1.025) Urine Protein Negative (Neg-Trace) mg/dL Urine Glucose (UA) Negative (Negative) mg/dL Urine Ketones Negative (Negative) mg/dL Urine Blood Negative (Negative) Urine Nitrite Negative (Negative) Ur Leukocyte Esterase Trace H (Negative) Urine RBC 0-2 (0-2) /HPF Urine WBC 0-5 (0-5) /HPF Ur Squamous Epith Cells 6-10 (0-2) /HPF Urine Bacteria Trace (None Seen) Hyaline Casts 0-2 (0-2) /LPF Urine Test NEGATIVE (NEGATIVE) Radiology Impression Discussion of test interpretation with radiology: I have reviewed the radiologist's reading. Radiologist Impression: EXAMINATION: CT ABDOMEN AND PELVIS WITHOUT CONTRAST CLINICAL INFORMATION: Back pain. Urinary hesitancy. COMPARISON: Pelvic ultrasonography 06/29/2020. TECHNIQUE: Multidetector volumetric imaging was performed from the superior aspect of the liver through the pubic symphysis. Sagittal and coronal reformatted images were obtained on the technologist's workstation. This CT examination was performed using dose optimization techniques as appropriate, variously including the following: *Automated exposure control *Adjustment of mA and/or kV according to patient size (this includes techniques or standardized protocols for targeted exams where dose is matched to indication/reason for exam; i.e. extremities or head) *Use of iterative reconstruction technique DLP: 500 mGy-cm FINDINGS: LUNG BASES: The visualized lung bases are unremarkable. LIVER, GALLBLADDER, AND BILIARY TREE: The liver is normal in size, shape, and attenuation. No focal hepatic lesion or biliary ductal dilatation is present. The gallbladder is unremarkable with no evidence of radiopaque gallstones, gallbladder wall thickening, or obvious pericholecystic inflammatory changes. PANCREAS: Unremarkable. SPLEEN: Unremarkable. ADRENAL GLANDS: Unremarkable. KIDNEYS AND URETERS: The kidneys are normal in size, shape, and attenuation. No hydronephrosis, hydroureter, or calculi seen. No perinephric stranding. BLADDER: Unremarkable. GASTROINTESTINAL TRACT: Mild sigmoid diverticulosis. A structure likely representing a diminutive, normal appendix is noted the base of the cecum. No adjacent soft tissue inflammatory changes. ABDOMINAL WALL: No significant hernia is appreciated. LYMPH NODES: Normal. VASCULAR: Unremarkable. PELVIC VISCERA: Unremarkable. OSSEOUS STRUCTURES: Partial visualization is made of an at least mild central disc protrusion at L5-S1. CT/CT abdomen pelvis wo IV con IMPRESSION: 1. No acute abnormalities. 2. No urolithiasis. No hydronephrosis. 3. Mild sigmoid diverticulosis. 4. Partial visualization of an at least mild central disc protrusion at L5-S1. Dictated By: Seb Escoto MD EXAMINATION: XR LUMBOSACRAL SPINE CLINICAL INFORMATION: Reason for Exam Pain COMPARISON: Lumbar spine radiographs 04/03/2022 TECHNIQUE: 3 views of the lumbar spine FINDINGS: 5 nonrib-bearing lumbar-type vertebral bodies. Vertebral body heights are maintained. Alignment is maintained. Minimal degenerative disc disease at L4-L5 with degenerative endplate spurring similar to prior. Paravertebral soft tissues are unremarkable. XR/XR lumbar spine 2-3V IMPRESSION: * Minimal degenerative disc disease in the lower lumbar spine. Dictated By: Kaycee Palmer MD Discharge Plan Discharge Clinical Impression: Back pain Patient Disposition: Home, Self-Care Instructions: Acute Low Back Pain (ED) Additional Instructions: Your CT scan does not show any evidence of kidney stones. You do have a mild central disc protrusion at L5-S1. Please take prescribed medication as directed. Please p.o. advised that muscle relaxants can cause drowsiness, do not drink alcohol or drive while taking these medications. Gentle stretching, massage, heat or ice, and Lidoderm patches will also help with your symptoms. Please follow-up with your primary care physician regarding this visit. If any new or worsening symptoms occur, please return for re-evaluation. Lyn tomograf?a computarizada no muestra ninguna evidencia de c?lculos renales. Tiene ralph leve protuberancia de disco central en L5-S1. [place] los medicamentos recetados seg?n las indicaciones. Por favor p.o. Le aconsejamos que los relajantes musculares pueden causar somnolencia, no huong alcohol ni conduzca mientras mary estos medicamentos. Los estiramientos suaves, los masajes, el calor o el hielo y los parches de Lidoderm tambi?n ayudar?n con shaw s?ntomas. Juan un seguimiento con lyn m?dico de atenci?n primaria con respecto a esta visita. Si se presenta alg?n s?ntoma nuevo o que empeora, regrese para ralph nueva evaluaci?n. Prescriptions: New cyclobenzaprine 5 mg tablet 5 mg PO TID Qty: 14 0RF ibuprofen 600 mg tablet 600 mg PO Q6H PRN (Reason: pain) Qty: 30 0RF acetaminophen [Tylenol] 325 mg tablet 650 mg PO Q6H PRN (Reason: pain) Qty: 30 0RF lidocaine [Lidoderm] 5 % adhesive patch,medicated 1 patch topical DAILY Qty: 30 0RF Rx Instructions: leave on most painful area for up to 12 hrs No Action cefuroxime axetil 250 mg tablet 250 mg PO BID 7 Days Qty: 14 0RF phenazopyridine [Pyridium] 100 mg tablet 100 mg PO TID PRN (Reason: pain) Qty: 5 0RF ibuprofen 600 mg tablet 600 mg PO Q6H PRN (Reason: pain) Qty: 60 0RF levothyroxine [Synthroid] 50 mcg tablet 50 mcg PO DAILY Interventions: ED Discharge Assessment Last Done: 02/14/23 23:52 Discharge Date/Time: 02/14/23 23:52
--- NOTE | 2023-02-14 17:47 | PC.NURSE ---
cable puller at bedside. a&ox3. respirations even and unlabored. pt reports bilateral flank pain for 2 weeks and the inability to urinate for 2 weeks. pt reports small amounts of urine when urinating and reports little amounts of blood in the urine. pt denies nausea, vomiting and chest pain. pt reports pain while urinating. pt reports having uti's in the past and having similar symptoms.
[2023-02-14 17:57] VITALS: BP 121/79; PULSE 65; RESP 18; O2SAT 100
[2023-02-14 18:06] LABS: Appearance Urine Clear; Color Urine Yellow; Glucose Urine UA Negative (Negative); Leukocyte Esterase Urine Trace (Negative); Nitrite Urine Negative (Negative); UMIC TRIGGER UACC YES; Urine Blood Negative (Negative); Urine Ketones Negative (Negative); Urine Protein Negative (Neg-Trace)
[2023-02-14 18:08] LABS: UPreg QC Valid YES; Urine Pregnancy NEGATIVE (NEGATIVE)
[2023-02-14 18:10] LABS: Bacteria Urine Trace (None Seen); Hyaline Casts Urine 0-2 /LPF (0-2); RBC Urine 0-2 /HPF (0-2); WBC Urine 0-5 /HPF (0-5)
[2023-02-14 19:06] VITALS: BP 126/89; PULSE 72; RESP 17; TEMP 36.7; O2SAT 99
--- NOTE | 2023-02-14 19:22 | ED_ITS ---
HPI - General Adult General Chief complaint: General Medical Stated complaint: back pain Time Seen by Provider: 02/14/23 18:00 Source: patient and RN notes reviewed Mode of arrival: ambulatory Limitations: no limitations History of Present Illness HPI narrative: This is a 47-year-old female presenting to the emergency department with complaints of back pain x3 weeks, worsening over the last 3 days. Patient denies any recent trauma or injury to her back. She reports that the pain worsens with movement. She has been trying massage and lidocaine patches without any relief. She also admits that she has had urinary hesitancy, hematuria and urinary urgency for the last 4 days. Denies any dysuria. Denies fevers, endorses chills. No chest pain or shortness of breath. No vomiting or diarrhea. Denies taking any medications at home to treat her current symptoms. No other complaints or concerns at this time. MD complaint: Back pain, urinary symptoms Onset (ago): week(s) Radiation: non-radiation Severity: moderate Quality: aching Pain Consistency: constant Relieving factors: none Exacerbating factors: none Associated symptoms: denies other symptoms Treatments prior to arrival: none Related Data Home Medications Medication Instructions Recorded Confirmed levothyroxine 50 mcg tablet 50 mcg PO DAILY 06/24/21 (Synthroid) Previous Rx's Medication Instructions Recorded cefuroxime axetil 250 mg tablet 250 mg PO BID 7 days #14 tabs 12/26/20 phenazopyridine 100 mg tablet 100 mg PO TID PRN pain 6 doses #5 12/26/20 (Pyridium) tabs ibuprofen 600 mg tablet 600 mg PO Q6H PRN pain #60 tabs 05/29/21 acetaminophen 325 mg tablet 650 mg (2 x 325 mg) PO Q6H PRN 02/14/23 (Tylenol) pain #30 tabs cyclobenzaprine 5 mg tablet 5 mg PO TID #14 tabs 02/14/23 ibuprofen 600 mg tablet 600 mg PO Q6H PRN pain #30 tabs 02/14/23 lidocaine 5 % topical patch 1 patch topical DAILY #30 ea 02/14/23 (Lidoderm) Allergies Allergy/AdvReac Type Severity Reaction Status Date / Time SEAFOOD Allergy Unknown HIVES Uncoded 02/14/23 12:30 Review of Systems 2 Review of Systems: Yes all other systems are reviewed and are negative Constitutional: Constitutional: Reports as per HPI PMFSH Past Medical History Attestation statement: The following information was validated with the patient. Medical History Insomnia Migraines Smoker Asthma Hypothyroidism Surgical History History of section Social History Social History Alcohol intake: never Smoked in Last 30 Days: No Use of substances other than those prescribed or required for medical reasons: No Advance Directives: No Advance Directives Information Provided: No Physical Exam ED Vital Signs: Vital Signs - 24 hr 02/14/23 12:30 02/14/23 17:57 02/14/23 19:06 Temperature 98 F 98.1 F Pulse Rate 69 65 72 Respiratory Rate 18 18 17 Blood Pressure 120/69 121/79 126/89 Pulse Oximetry 98 100 99 Oxygen Delivery Method Room Air Room Air Room Air 02/14/23 23:15 Temperature Pulse Rate Respiratory Rate 18 Blood Pressure Pulse Oximetry Oxygen Delivery Method BMI result Body Mass Index 28.0 Const General: cooperative, comfortable and no acute distress Orientation/consciousness: patient oriented x3 Limitations: no limitations HENMT Head: Yes normal to inspection, Yes normocephalic and Yes atraumatic Ears: hearing grossly normal bilaterally General nose exam: Normal external nose present Face and sinus: Yes normal facial exam Mouth: Normal oral and palatal mucosa present, oropharynx normal and moist mucous membranes Throat: Yes posterior oropharynx normal Eyes General: appearance normal, both eyes and all related structures Eyelids: Yes eyelids normal Conjunctivae: conjunctivae normal Sclerae: sclerae normal Pupils: Equal, round and reactive pupils present EOM: EOMs intact bilaterally Neck Neck: Yes normal visual inspection, Yes full ROM and Yes no lymphadenopathy Lymphatic: no lymphadenopathy noted Chest Chest palpation & inspection: normal inspection of the chest Resp Effort & Inspection: normal respiratory effort and able to speak in complete sentences Auscultation: clear to auscultation bilaterally, no crackles, no rales, no rhonchi and no wheezes Cardio Rate: regular rate Rhythm: regular rhythm Heart sounds: S1 normal heart sound present and S2 normal heart sound present GI Other: Abdomen is soft, nontender, nondistended. Normoactive bowel sounds present in all 4 quadrants. Inspection: Yes normal to inspection General: Yes CVA tenderness (Bilateral) Back/Spine/Pelvis Other: Tenderness to palpation along the lumbar musculature. No midline spine tenderness. Positive straight leg on the right. Distal sensation circulation intact. Back: CVA tenderness (Bilateral) Skin General skin exam: no rashes or lesions noted Trauma: no lacerations or abrasions Wounds: no wounds Neuro General: patient oriented x3 and moves all extremities Cranial nerves: Yes Equal, round and reactive pupils present Extrem General: Yes normal to inspection Right upper extremity: normal to inspection Left upper extremity: normal to inspection Right lower extremity: normal to inspection Left lower extremity: normal to inspection Medications Administered Discontinued Medications Generic Name Dose Route Start Last Admin Trade Name Freq PRN Reason Stop Dose Admin Cyclobenzaprine HCl 5 mg 02/14/23 23:26 02/14/23 23:43 Cyclobenzaprine Hcl 5 Mg Tablet PO 02/14/23 23:27 5 mg ONCE ONE Administration Sodium Chloride 1,000 mls @ 999 mls/hr 02/14/23 19:21 02/14/23 20:55 Ns IV 02/14/23 20:21 Infused .Q1H1M ONE Infusion Ketorolac Tromethamine 30 mg 02/14/23 19:21 02/14/23 19:41 Ketorolac Tromethamine 30 Mg/Ml Vial IVPUSH 02/14/23 19:22 30 mg ONCE ONE Administration Medical Decision Making Medical Decision Making [facility] Narrative: 47-year-old female presenting to the emergency department with complaints of back pain and urinary symptoms x3 weeks worsening over the last 3-4 days. On arrival, all vital signs within normal limits. Patient is nontoxic appearing. Patient has mild tenderness palpation along the bilateral lumbar musculature. Patient has positive straight leg raise on the right. No red flag back symptoms. Patient also endorsing bilateral CVA tenderness. Abdomen is soft and nontender. Urine was ordered out in triage, trace leuk esterases noted, does not appear to be infected. Lumbar spine x-ray shows degenerative changes. Given patient has urinary retention, urgency, and hematuria, concerning for nephrolithiasis versus obstructive uropathy. Differential diagnoses include several cysts versus lumbar spasm strain. Plan: Urine, basic labs to assess for kidney function, will obtain CT scan of the abdomen to rule out obstructive uropathy Differential Diagnosis Differential Diagnoses: The differential diagnosis associated with the presentation includes See above Admission/Observation Consideration of admission/observation: Escalation of care including admission/observation considered Patient would have been admitted to the hospital had her work up had any findings where hospital admission was appropriate and her clinical presentation warranted hospital admission. Lab Data MDM Lab Attestation statement: I reviewed the patient's lab results. See above 02/14/23 19:38 02/14/23 19:38 Labs: Lab Results 02/14/23 02/14/23 Range/Units 17:58 19:38 WBC 7.7 (4.8-10.8) X10*3/uL RBC 4.68 (4.20-5.50) X10*6/uL Hgb 13.2 (12.0-16.0) g/dl Hct 40.4 (37.0-47.0) % MCV 86.3 (80.0-98.0) fL MCH 28.2 (27.0-33.0) pg MCHC 32.7 (31.0-35.0) g/dl RDW 14.5 (11.0-16.0) % Plt Count 245 (160-400) X10*3/uL MPV 11.3 (9.4-12.3) fL Immature Gran % (Auto) 0.1 (0.0-0.4) % Neut % (Auto) 32.6 L (45-73) % Lymph % (Auto) 55.0 H (20-40) % Madison % (Auto) 10.5 (2-11) % Eos % (Auto) 1.4 (0-4) % Baso % (Auto) 0.4 (0-2) % Lymph # (Auto) 4.3 (1.2-4.9) X10*3/uL Madison # (Auto) 0.8 (0.1-1.2) X10*3/uL Eos # (Auto) 0.1 (0.0-0.4) X10*3/uL Baso # (Auto) 0.0 (0.0-0.2) X10*3/uL Abs Immat Gran (auto) 0.01 (0.00-0.03) X10*3/uL Absolute Neuts (auto) 2.5 (2.0-8.3) x10*3/uL Absolute Nucleated RBC 0.000 (0.0-0.012) X10*3/uL Nucleated RBC % (auto) 0.0 (0.0-0.2) /100WBC Sodium 141 (135-145) mmol/L Potassium 4.7 (3.3-5.1) mmol/L Chloride 107 (96-108) mmol/L Carbon Dioxide 27 (22-29) mmol/L Anion Gap 12 (12-20) BUN 13 (9-16) mg/dL Creatinine 1.01 (0.5-1.4) mg/dL Estim Creat Clear Calc 63.9 Estimated GFR 58 Random Glucose 89 (60-115) mg/dL Calcium 9.9 (8.4-10.2) mg/dL Total Bilirubin 0.2 (0.0-1.0) mg/dL Direct Bilirubin < 0.2 (0.0-0.5) mg/dL AST 19 (5-31) U/L ALT 17 (0-31) U/L Alkaline Phosphatase 61 (39-117) U/L Total Protein 8.0 (6.5-8.0) g/dL Albumin 4.1 (3.5-5.0) g/dL Lipase 36 (8-78) U/L Urine Color Yellow Urine Appearance Clear Urine pH 7.0 (5.0-9.0) Ur Specific Anita 1.010 (1.005-1.025) Urine Protein Negative (Neg-Trace) mg/dL Urine Glucose (UA) Negative (Negative) mg/dL Urine Ketones Negative (Negative) mg/dL Urine Blood Negative (Negative) Urine Nitrite Negative (Negative) Ur Leukocyte Esterase Trace H (Negative) Urine RBC 0-2 (0-2) /HPF Urine WBC 0-5 (0-5) /HPF Ur Squamous Epith Cells 6-10 (0-2) /HPF Urine Bacteria Trace (None Seen) Hyaline Casts 0-2 (0-2) /LPF Urine Test NEGATIVE (NEGATIVE) Radiology Impression Discussion of test interpretation with radiology: I have reviewed the radiologist's reading. External Record Review External record reviewed: Inpatient record, Office record, Outpatient record, Prior outpatient labs, Prior outpatient radiology, Primary care record and Outside ED record Discharge Plan Discharge Clinical Impression: Back pain Patient Disposition: Home, Self-Care Instructions: Acute Low Back Pain (ED) Additional Instructions: Your CT scan does not show any evidence of kidney stones. You do have a mild central disc protrusion at L5-S1. Please take prescribed medication as directed. Please p.o. advised that muscle relaxants can cause drowsiness, do not drink alcohol or drive while taking these medications. Gentle stretching, massage, heat or ice, and Lidoderm patches will also help with your symptoms. Please follow-up with your primary care physician regarding this visit. If any new or worsening symptoms occur, please return for re-evaluation. Newell tomograf?a computarizada no muestra ninguna evidencia de c?lculos renales. Tiene ralph leve protuberancia de disco central en L5-S1. [place] los medicamentos recetados seg?n las indicaciones. Por favor p.o. Le aconsejamos que los relajantes musculares pueden causar somnolencia, no huong alcohol ni conduzca mientras mary estos medicamentos. Los estiramientos suaves, los masajes, el calor o el hielo y los parches de Lidoderm tambi?n ayudar?n con shaw s?ntomas. Juan un seguimiento con newell m?dico de atenci?n primaria con respecto a esta visita. Si se presenta alg?n s?ntoma nuevo o que empeora, regrese para ralph nueva evaluaci?n. Prescriptions: New cyclobenzaprine 5 mg tablet 5 mg PO TID Qty: 14 0RF ibuprofen 600 mg tablet 600 mg PO Q6H PRN (Reason: pain) Qty: 30 0RF acetaminophen [Tylenol] 325 mg tablet 650 mg PO Q6H PRN (Reason: pain) Qty: 30 0RF lidocaine [Lidoderm] 5 % adhesive patch,medicated 1 patch topical DAILY Qty: 30 0RF Rx Instructions: leave on most painful area for up to 12 hrs No Action cefuroxime axetil 250 mg tablet 250 mg PO BID 7 Days Qty: 14 0RF phenazopyridine [Pyridium] 100 mg tablet 100 mg PO TID PRN (Reason: pain) Qty: 5 0RF ibuprofen 600 mg tablet 600 mg PO Q6H PRN (Reason: pain) Qty: 60 0RF levothyroxine [Synthroid] 50 mcg tablet 50 mcg PO DAILY Interventions: ED Discharge Assessment Last Done: 02/14/23 23:52 Discharge Date/Time: 02/14/23 23:52
[2023-02-14] MEDS: Ketorolac Tromethamine 30 MG/ML VIAL IVPUSH (19:41)
[2023-02-14 19:42] LABS: MANUAL DIFF FLAG NO
[2023-02-14] MEDS: 0.9 % Sodium Chloride 1,000 ML 999 ML IV (19:42)
--- NOTE | 2023-02-14 19:43 | PC.NURSE ---
20g IV started in LAC
[2023-02-14 19:46] LABS: Basophils Percent Auto 0.4 % (0-2); Eosinophils Absolute Auto 0.1 X10*3/uL (0.0-0.4); Eosinophils Percent Auto 1.4 % (0-4); Hematocrit 40.4 % (37.0-47.0); Hemoglobin 13.2 g/dl (12.0-16.0); Imm Gran Abs Auto 0.01 X10*3/uL (0.00-0.03); Imm Gran Pct Auto 0.1 % (0.0-0.4); Lymphocytes Absolute Auto 4.3 X10*3/uL (1.2-4.9); Mean Corpuscular HGB Conc 32.7 g/dl (31.0-35.0); Mean Corpuscular Hemoglobin 28.2 pg (27.0-33.0); Mean Corpuscular Volume 86.3 fL (80.0-98.0); Mean Platelet Volume 11.3 fL (9.4-12.3); Monocytes Absolute Auto 0.8 X10*3/uL (0.1-1.2); Monocytes Percent Auto 10.5 % (2-11); Neutrophils Absolute Auto 2.5 x10*3/uL (2.0-8.3); Neutrophils Percent Auto 32.6 % (45-73); Platelet Count 245 X10*3/uL (160-400); Red Blood Count 4.68 X10*6/uL (4.20-5.50); Red Cell Distribution Width 14.5 % (11.0-16.0); White Blood Count 7.7 X10*3/uL (4.8-10.8)
[2023-02-14 20:11] LABS: Alanine Aminotransferase 17 U/L (0-31); Albumin Level 4.1 g/dL (3.5-5.0); Alkaline Phosphatase 61 U/L (39-117); Anion Gap 12 (12-20); Aspartate Amino Transferase 19 U/L (5-31); Bilirubin Direct < 0.2 mg/dL (0.0-0.5); Bilirubin Total 0.2 mg/dL (0.0-1.0); Blood Urea Nitrogen 13 mg/dL (9-16); Calcium 9.9 mg/dL (8.4-10.2); Carbon Dioxide 27 mmol/L (22-29); Chloride 107 mmol/L (96-108); Creatinine Clr Calc Pharmacy 63.9; Estimated Glomerular Filt Rate 58; Glucose Random 89 mg/dL (60-115); Lipase 36 U/L (8-78); Potassium 4.7 mmol/L (3.3-5.1); Sodium 141 mmol/L (135-145)
[2023-02-14 23:15] VITALS: RESP 18
[2023-02-14] MEDS: Cyclobenzaprine HCl 5 MG TABLET PO (23:43)
== END 2023-02-14 23:52 | disposition home or self-care (01) ==
PROVIDERS: Physician Assistant Medical; Emergency Provider Emergency Medicine Emergency Medical Services; PCP Family Medicine
DX: M54.50 Low back pain, unspecified (principal); R39.15 Urgency of urination
CPT/HCPCS: 36415; 51798; 72100; 74176; 80048; 80076; 81001; 81025; 83690; 85025; 96361; 96374; 99284; 99285; J1885

== ENCOUNTER 2023-05-26 09:07 | Outpatient (AMB) | payer MEDICAID, SELFPAY ==
--- NOTE | 2023-05-26 09:17 | A.OFFVIS_ITS ---
Intake Vital Signs 05/26/23 09:20 Height 5 ft 3 in Weight 158 lb BMI 28.0 BP 116/69 Blood Pressure Location Lt brachial Position Sitting Pulse 71 Intake Visit Reasons: Colonoscopy Screening PT N/S last 2 appt Intake Note: Patient new consult for pre colonoscopy screening. Patient cc: constipation and acid reflex with abdominal pain. Denies any other GI issues. Dentist Attendant Required: Yes Dentist Attendant Name: Yared Mendoza Accompanied by: Self / Same As Patient Allergies SEAFOOD Allergy (Unknown, Uncoded 02/14/23 12:30) HIVES Medication List - Last Reconciled 05/26/23 by Faviola Fulton PA-C acetaminophen (Tylenol) 650 mg (2 x 325 mg) PO Q6H PRN cyclobenzaprine 5 mg PO TID ibuprofen 600 mg PO Q6H PRN levothyroxine (Synthroid) 50 mcg PO DAILY lidocaine 5% (Lidoderm) 1 patch topical DAILY HPI HPI Comments History of Present Illness Details A 47 y/o female referred for index screening colonoscopy She has lifelong constipation- follow no remedy- no special diet- Appetite is fairly good, she does not eat much, however has no acid reflux no nausea or vomiting she has had no weight loss. No cardiac or respiratory issues No nausea, vomiting, hematemesis, hematochezia fever or chills No known family history of GI cancers PFSH Medical History (Updated 05/26/23 @ 09:57 by Faviola Fulton PA-C) Insomnia Migraines Smoker Asthma Hypothyroidism Surgical History History of section Social History (Updated 05/26/23 @ 09:39 by Faviola Fulton PA-C) Household Members: Family Alcohol intake: never Patient Tobacco Use Status: Never used Tobacco Substance Use Type: Marijuana Current occupational status: unemployed Review of Systems Const All systems reviewed & are unremarkable except as noted in HPI and below Card Denies chest pain and Denies dyspnea Resp Denies dyspnea GI Denies abdominal pain, Denies hematochezia, Denies change in bowel habits, Reports constipation, Denies dyspepsia, Denies heartburn, Denies diarrhea and Denies nausea Physical Exam Vital Signs: Last Vital Signs Pulse 71 05/26/23 09:20 BP 116/69 05/26/23 09:20 BMI result Body Mass Index 28.0 Const General: cooperative, healthy appearing, comfortable and no acute distress Orientation/consciousness: patient oriented x3 Limitations: language barrier Eyes Sclerae: sclerae normal Resp Effort & Inspection: normal respiratory effort and able to speak in complete sentences Auscultation: clear to auscultation bilaterally, no rales, no rhonchi and no wheezes Cardio Rate: regular rate Rhythm: regular rhythm Heart sounds: S1 normal heart sound present and S2 normal heart sound present GI Palpation (GI): Soft to palpation and nontender Auscultation: normal bowel sounds Skin General skin exam: no rashes or lesions noted Neuro General: patient oriented x3 Extrem General: Yes full ROM Psych Appearance: grossly normal and well kempt Mental Status: mental status grossly normal Speech and movement: Normal speech and movement present Affect: normal affect Attitude: cooperative Thought process: Normal thought process present Thought content: Normal thought content present Insight: Good insight present (Psych) Judgement: Good judgement present (Psych) Results Reviewed Results Reviewed: 02/2023- labs reviewed Assessment & Plan Assessment & Plan (1) Chronic constipation: Comment: Lifelong, Code(s): K59.09 - Other constipation Plan: Begin bowel regimen be consistent Colace 200 mg as well as MiraLax q.h.s. New adequate diarrhea after 3 days, so suppository Maintain high-fiber diet (2) Encounter for screening colonoscopy: Code(s): Z12.11 - Encounter for screening for malignant neoplasm of colon Plan Index colonoscopy- MG prep Bowel regimen' needs slinger sequins Orders: Orders Colonoscopy - GI Use Only Today Z12.11 - Encounter for screening for malignant neoplasm of colon Medications: New bisacodyl (Dulcolax (bisacodyl)) Day before procedure, prep day Take 4 tablets by mouth upon awakening followed by large glass of water 20 mg (4 x 5 mg) PO ONCE 1 day 4 tabs 0RF colonoscopy prep Z12.11 - Encounter for screening for malignant neoplasm of colon polyethylene glycol 3350 (Miralax) Take as directed by mouth the day before your procedure. 238 grams PO ONCE 1 day PRN 238 grams 0RF laxative effect Patient Instructions: Pleasant 47-year-old female referred for Index colonoscopy- Reviewed procedure, indications need for escort and prep MG prep, reviewed, literature given, questions asked , boyfriend present with questions as well-no major barriers to understanding were identified Begin bowel regimen be consistent Colace 200 mg as well as MiraLax q.h.s. New adequate diarrhea after 3 days, so suppository Maintain high-fiber diet, needs slinger sequins Coding Level of Care Code Est Pt Level 3 (76717) Diagnoses Chronic constipation K59.09 Encounter for screening colonoscopy Z12.11 Comment [id number]
[2023-05-26 09:20] VITALS: BP 116/69; PULSE 71; BMI 28.0
== END 2023-05-26 09:56 | disposition home or self-care (01) ==
PROVIDERS: PCP Family Medicine; Visit Provider Physician Assistant
DX: Z01.818 Encounter for other preprocedural examination (principal); Z12.11 Encounter for screening for malignant neoplasm of colon; K59.09 Other constipation
CPT/HCPCS: 99212

== ENCOUNTER → 2023-05-26 09:07 | Outpatient (BNVA) | payer MEDICAID, SELFPAY | PROVIDERS: PCP Family Medicine; Visit Provider Physician Assistant | DX: Z12.11 Encounter for screening for malignant neoplasm of colon (principal); K59.09 Other constipation | CPT/HCPCS: 99212 ==

== ENCOUNTER 2023-10-05 08:42 | Outpatient (REF) | payer MEDICAID, SELFPAY | END 2023-10-05 08:43 | disposition home or self-care (01) | LOC: HO.MAMMO 08:42 | PROVIDERS: PCP Family Medicine; Visit Provider Family Medicine | DX: Z12.31 Encounter for screening mammogram for malignant neoplasm of breast (principal) | CPT/HCPCS: 77063; 77067 ==

== ENCOUNTER → 2023-10-05 08:45 | Outpatient (BNV) | payer MEDICAID, SELFPAY | PROVIDERS: PCP Family Medicine; Visit Provider Radiology Diagnostic Radiology | DX: Z12.31 Encounter for screening mammogram for malignant neoplasm of breast (principal) | CPT/HCPCS: 77063; 77067 ==

== ENCOUNTER 2023-10-15 11:30 | Outpatient (REF) | payer MEDICAID, SELFPAY ==
[2023-10-15 13:40] LABS: MANUAL DIFF FLAG NO
[2023-10-15 13:42] LABS: Basophils Absolute Auto 0.1 X10*3/uL (0.0-0.2); Basophils Percent Auto 0.5 % (0-2); Eosinophils Percent Auto 0.3 % (0-4); Hematocrit 42.6 % (37.0-47.0); Hemoglobin 14.2 g/dl (12.0-16.0); Imm Gran Abs Auto 0.04 X10*3/uL (0.00-0.03); Imm Gran Pct Auto 0.4 % (0.0-0.4); Lymphocytes Absolute Auto 3.2 X10*3/uL (1.2-4.9); Lymphocytes Percent Auto 30.9 % (20-40); Mean Corpuscular HGB Conc 33.3 g/dl (31.0-35.0); Mean Corpuscular Hemoglobin 28.8 pg (27.0-33.0); Mean Corpuscular Volume 86.4 fL (80.0-98.0); Mean Platelet Volume 11.7 fL (9.4-12.3); Monocytes Absolute Auto 0.8 X10*3/uL (0.1-1.2); Monocytes Percent Auto 7.9 % (2-11); Neutrophils Absolute Auto 6.3 x10*3/uL (2.0-8.3); Platelet Count 300 X10*3/uL (160-400); Red Blood Count 4.93 X10*6/uL (4.20-5.50); Red Cell Distribution Width 14.9 % (11.0-16.0); White Blood Count 10.5 X10*3/uL (4.8-10.8)
[2023-10-15 13:53] LABS: Estimated Average Glucose 105 mg/dL; Hemoglobin A1c % 5.3 % (<6.0)
[2023-10-15 14:17] LABS: Alanine Aminotransferase 17 U/L (0-31); Albumin Level 4.2 g/dL (3.5-5.0); Alkaline Phosphatase 74 U/L (39-117); Anion Gap 14 (12-20); Aspartate Amino Transferase 19 U/L (5-31); Bilirubin Total 0.3 mg/dL (0.0-1.0); Blood Urea Nitrogen 11 mg/dL (9-16); Calcium 10.1 mg/dL (8.4-10.2); Carbon Dioxide 24 mmol/L (22-29); Chloride 104 mmol/L (96-108); Cholesterol 177 mg/dL (<200); Estimated Glomerular Filt Rate > 60; Glucose Random 87 mg/dL (60-115); HDL Cholesterol 51 mg/dL (>40); LDL Cholesterol Calculated 101 mg/dL (<100); Potassium 4.4 mmol/L (3.3-5.1); Sodium 138 mmol/L (135-145); Total Protein 8.5 g/dL (6.5-8.0); Triglycerides 126 mg/dL (<150)
[2023-10-15 14:22] LABS: TSH reflex Free T4 0.09 uIU/mL (0.32-4.0)
[2023-10-15 14:36] LABS: Reflex LDLD? No
[2023-10-15 14:58] LABS: Free T4 (Free Thyroxine) 1.04 ng/dL (0.71-1.85)
[2023-10-16 03:45] LABS: Syphilis Screen Nonreactive (Nonreactive)
[2023-10-16 04:08] LABS: Hepatitis A Antibody IgG REACTIVE (Nonreactive); ~Hepatitis A Antibody IgG 9.41 S/CO (0.00-0.99)
[2023-10-16 04:09] LABS: HBS Num1 508.86 mIU/mL (0-7.99); HBc Num1 0.35 S/CO (0.00-0.79); HBsAGNum1 0.25 S/CO (0.00-0.99); HIV AB/AG Nonreactive (Nonreactive); HIV Num 1 0.05 S/CO (0.00-0.99); Hepatitis B Core Antibody Nonreactive (Nonreactive); Hepatitis B Surface Antigen Negative (Negative); ~HepC Num1 0.19 S/CO (0.00-0.79); ~Hepatitis B Surface Antibody REACTIVE (Nonreactive); ~Hepatitis C Antibody Nonreactive (Nonreactive)
[2023-10-16 15:43] LABS: Follicle Stimulating Hormone 15.7 mIU/mL
[2023-10-21 00:53] LABS: Estradiol Ultra Sensitive 157 pg/mL
== END 2023-10-15 11:31 | disposition home or self-care (01) ==
LOC: HO.HHCL 11:30
PROVIDERS: Visit Provider Family Medicine
DX: N92.6 Irregular menstruation, unspecified (principal); Z13.1 Encounter for screening for diabetes mellitus; E03.9 Hypothyroidism, unspecified; M54.50 Low back pain, unspecified; G89.29 Other chronic pain; Z11.3 Encounter for screening for infections with a predominantly sexual mode of transmission; Z13.220 Encounter for screening for lipoid disorders; Z01.84 Encounter for antibody response examination
CPT/HCPCS: 36415; 80053; 80061; 82670; 83001; 83036; 84439; 84443; 85025; 86704; 86706; 86708; 86780; 86803; 87340; 87389

== ENCOUNTER 2024-03-07 13:01 | Outpatient (REF) | payer MEDICAID, SELFPAY ==
[2024-03-07 16:49] LABS: Appearance Urine Cloudy; Color Urine Yellow; Glucose Urine UA Negative (Negative); Leukocyte Esterase Urine Negative (Negative); Nitrite Urine Negative (Negative); Specific Gravity - Urine 1.015 (1.005-1.025); Urine Blood Negative (Negative); Urine Ketones Negative (Negative); Urine Protein Negative (Neg-Trace)
[2024-03-07 17:19] LABS: Anion Gap 14 (12-20); Blood Urea Nitrogen 16 mg/dL (9-16); Calcium 9.9 mg/dL (8.4-10.2); Carbon Dioxide 24 mmol/L (22-29); Chloride 107 mmol/L (96-108); Estimated Glomerular Filt Rate 54; Glucose Random 98 mg/dL (60-115); Potassium 4.3 mmol/L (3.3-5.1); Sodium 141 mmol/L (135-145)
[2024-03-07 17:40] LABS: Free T4 (Free Thyroxine) 1.15 ng/dL (0.71-1.85); TSH reflex Free T4 0.75 uIU/mL (0.32-4.0); Thyroid Stimulating Hormone 0.75 uIU/mL (0.32-4.0)
[2024-03-07 18:06] LABS: Bacteria Urine 2+ (None Seen); Hyaline Casts Urine 0-2 /LPF (0-2); RBC Urine 0-2 /HPF (0-2); WBC Urine 0-5 /HPF (0-5)
[2024-03-08 04:41] LABS: CT PCR NOT DETECTED (Not Detect.); NG PCR NOT DETECTED (Not Detect.)
== END 2024-03-07 13:02 | disposition home or self-care (01) ==
LOC: HO.HHCL 13:01
PROVIDERS: Visit Provider Family Medicine
DX: R42 Dizziness and giddiness (principal); E03.9 Hypothyroidism, unspecified; Z11.3 Encounter for screening for infections with a predominantly sexual mode of transmission; R39.9 Unspecified symptoms and signs involving the genitourinary system
CPT/HCPCS: 36415; 80048; 81001; 84439; 84443; 87491; 87591

== ENCOUNTER 2024-04-28 10:54 | Outpatient (REF) | payer MEDICAID, SELFPAY | END 2024-04-28 10:55 | disposition home or self-care (01) | LOC: HO.MRI 10:54 | PROVIDERS: PCP Family Medicine; Visit Provider Family Medicine | DX: M54.50 Low back pain, unspecified (principal); G89.29 Other chronic pain | CPT/HCPCS: 72148 ==

== ENCOUNTER 2024-08-29 11:54 | Outpatient (REF) | payer MEDICAID, SELFPAY ==
[2024-08-29 13:24] LABS: MANUAL DIFF FLAG NO
[2024-08-29 13:42] LABS: Basophils Absolute Auto 0.1 X10*3/uL (0.0-0.2); Basophils Percent Auto 0.6 % (0-2); Eosinophils Absolute Auto 0.1 X10*3/uL (0.0-0.4); Eosinophils Percent Auto 0.6 % (0-4); Hematocrit 41.3 % (37.0-47.0); Hemoglobin 13.5 g/dl (12.0-16.0); Imm Gran Abs Auto 0.02 X10*3/uL (0.00-0.03); Imm Gran Pct Auto 0.2 % (0.0-0.4); Lymphocytes Absolute Auto 3.1 X10*3/uL (1.2-4.9); Lymphocytes Percent Auto 35.6 % (20-40); Mean Corpuscular HGB Conc 32.7 g/dl (31.0-35.0); Mean Corpuscular Hemoglobin 28.7 pg (27.0-33.0); Mean Corpuscular Volume 87.7 fL (80.0-98.0); Mean Platelet Volume 11.1 fL (9.4-12.3); Monocytes Absolute Auto 0.9 X10*3/uL (0.1-1.2); Monocytes Percent Auto 10.2 % (2-11); Neutrophils Absolute Auto 4.6 x10*3/uL (2.0-8.3); Neutrophils Percent Auto 52.8 % (45-73); Platelet Count 284 X10*3/uL (160-400); Red Blood Count 4.71 X10*6/uL (4.20-5.50); Red Cell Distribution Width 14.6 % (11.0-16.0); White Blood Count 8.7 X10*3/uL (4.8-10.8)
[2024-08-29 13:50] LABS: Rheumatoid Factor < 13.0 IU/mL (<15.0)
[2024-08-29 13:57] LABS: C Reactive Protein 0.24 mg/dL (< or = 0.50)
[2024-08-29 14:10] LABS: TSH reflex Free T4 0.45 uIU/mL (0.32-4.0); Vitamin D 25-OH Total 55.1 ng/mL (>30)
[2024-08-29 14:18] LABS: Erythrocyte Sedimentation Rate 34 MM/HR (0-20)
[2024-08-31 11:44] LABS: Anti Nuclear Antibody Screen NEGATIVE (NEGATIVE)
[2024-08-31 14:58] LABS: Cyclic Citrullinated Peptide <16 UNITS
[2024-09-01 07:38] LABS: Immunoglobulin A 646 mg/dL (47-310); Transglutaminase IgA <1.0 U/mL
== END 2024-08-29 11:55 | disposition home or self-care (01) ==
LOC: HO.HHCL 11:54
PROVIDERS: Visit Provider Family Medicine
DX: M25.50 Pain in unspecified joint (principal); R19.7 Diarrhea, unspecified
CPT/HCPCS: 36415; 82306; 82784; 84443; 85025; 85652; 86038; 86140; 86200; 86364; 86431

== ENCOUNTER 2024-08-30 13:28 | Outpatient (REF) | payer MEDICAID, SELFPAY | END 2024-08-30 13:29 | disposition home or self-care (01) | LOC: HO.HHCLNP 13:28 | PROVIDERS: Visit Provider Family Medicine | DX: R19.7 Diarrhea, unspecified (principal); R10.9 Unspecified abdominal pain | CPT/HCPCS: 87338 ==

== ENCOUNTER 2024-09-06 11:19 | Outpatient (REF) | payer MEDICAID, SELFPAY ==
[2024-09-06 13:22] LABS: Appearance Urine Clear; Color Urine Yellow; Glucose Urine UA Negative (Negative); Leukocyte Esterase Urine Trace (Negative); Nitrite Urine Negative (Negative); Specific Gravity - Urine 1.015 (1.005-1.025); UMIC TRIGGER UACC YES; Urine Blood Small (1+) (Negative); Urine Ketones Negative (Negative); Urine Protein Negative (Neg-Trace)
[2024-09-06 13:32] LABS: Bacteria Urine None Seen (None Seen); Hyaline Casts Urine 0-2 /LPF (0-2); RBC Urine 0-2 /HPF (0-2); UACC Culture Trigger YES
--- OUTSIDE RECORDS SUMMARY | 2024-09-06 13:50 | XMS_ITS | Encounter Summary ---
Author Organization [employer] Address [address] [place] [address] Care Team Providers Care [facility] Justice Name Role Phone Kate Penn MD Primary Care Provider [phone] Encounter Details Date Type Department Care Team (Late st Contact Info) Description 06/05/2022 Orders Only [facility] [address] [place] [address] [phone] Kate Penn MD [address] [place] [address] [phone] Mild intermittent asthma without complication (Primary Dx) Social History Tobacco Use Types Packs/Day Years Used Date Smoking Tobacco: Never Assessed Comments Unknown Sex and Gender Information Value Date Recorded Sex Assigned at Female 04/07/2022 10:17 AM EDT Legal Sex Female 10:17 AM EDT Gender Identity Female 04/07/2022 10:17 AM EDT Sexual Orientation Straight 04/07/2022 10 :17 AM EDT documented as of this encounter Plan of Treatment Upcoming Encounters Date Type Department Care Team (Late st Contact Info) Description 09/13/2024 9:30 AM EDT Clinical Support [facility] [address] [place] [address] [phone] documented as of this encounter Visit Diagnoses Diagnosis Mild intermittent asthma without complication- Primary documented in this encounter Care Teams [facility] Justice Relationship Specialty Start Date End Date Kate Penn MD [address] [place] [address] [phone] PCP - General Family Medicine 03/21/13 documented as of this encounter
--- OUTSIDE RECORDS SUMMARY | 2024-09-06 13:50 | XMS_ITS | Encounter Summary ---
Author Organization [employer] Address [address] [place] [address] Care Team Providers Care Personal Development Coach Name Role Phone Kate Penn MD Primary Care Provider Encounter Details Date Type Department Care Team ([facility] st Contact Info) Description 10/15/2023 Orders Only [facility] MEDICINE [address] [place], [place] [phone] Kate Penn MD [address] [place], [place] [phone] Acquired hypothyroidism (Primary Dx) Social History Tobacco Use Types Packs/Day Years Used Date Smoking Tobacco: Never Smokeless Tobacco: Never Alcohol Use Standard Drinks/Week Comments Never 0 (1 standard drink = 0.6 oz pur e alcohol) Depression Answer Date Recorded Patient Health Questionnaire-9 Score 7 04/14/2023 Patient Health Questionnaire-9 Score 7 04/14/2023 Last PHQ-9: Questionnaire Data Not on file 1 06/14/2022 Housing Stability Answer Date Recorded What is your housing situation today? I have tori blake 04/03/[address] you li ve. Do you have problems with any of the following? None of the above 04/03/2023 Food Insecurity Answer Date Recorded Within the past 12 months, y ou worried that your food would run out before you got money to buy more: Never True 04/03/2023 Within the past 12 months,th e food you bought just didn't last and you didn't have enough money to get more: Never True Transportation Answer Date Recorded In the past 12 months, has l ack of transportation kept you from medical appts, meetings, work or from getting things needed for daily living? No 04/03/2023 Utilities Answer Date Recorded In the past 12 months, has t he electric, gas, oil or water company threatened to shut off services in your home? No 04/03/2023 Depression Answer Date Recorded Patient Health Questionnaire-2 Score 1 04/14/2023 Comments Unknown Sex and Gender Information Value [...] Description 09/13/2024 9:30 AM EDT Clinical Support [address] [address] documented as of this encounter Procedures Procedure Name Priority Date/Time Associated Diagnosis Comments TSH Routine 03/07/2024 1:05 PM EDT Acquired hypothyroidism T4, FREE Routine 03/07/2024 1:05 PM EDT Acquired hypothyroidism documented in this encounter Results * T4, Free (03/07/2024 1:05 PM EDT) Free T4 (Free Thyroxine) 1.15 0.71 - 1.85 ng/dL [facility] Blood Venous blood specimen / Unknown 03/07/2024 1:05 PM EDT 03/07/2024 4:37 PM EDT us Kate Penn MD LAB BLOOD ORDERABLES Final Resul t [facility] [address] [place] [address] [phone] * TSH (03/07/2024 1:05 PM EDT) Thyroid Stimulating Hormone 0.75 0.32 - 4.0 uIU/mL [facility] Comment:TSH 3rd Generation ( [facility]) Blood Venous blood specimen / Unknown 03/07/2024 1:05 PM EDT 03/07/2024 4:37 PM EDT Kate Penn MD LAB BLOOD ORDERABLES Final Resul t [facility] [address] [place] [address] [phone] documented in this encounter Visit Diagnoses Diagnosis Acquired hypothyroidism- Primary Unspecified hypothyroidism documented in this encounter Additional Health Concerns Assessment Noted Time PHQ-9 Depression Total Score: 7 04/14/20 23 1:37 PM EST documented as of this encounter Care Teams Personal Development Coach Relationship Specialty Start Date End Date Kate Penn MD [address] [place] [id number] PCP - General Family Medicine 03/21/13 documented as of this encounter
--- OUTSIDE RECORDS SUMMARY | 2024-09-06 13:50 | XMS_ITS | Encounter Summary ---
Author Organization [employer] Address [address] [place] [address] Care Team Providers Care Freight And Passenger Agent Name Role Phone Kate Penn MD Primary Care Provider [phone] Reason for Visit * Reason Onset Date Comments Results 09/02/2024 Encounter Details Date Type Department Care Team ([facility] st Contact Info) Description 09/02/2024 Telephone [facility] MEDICINE [address] [place], [place] [phone] Kate Penn MD [address] [place], [place] [phone] Results Social History Tobacco Use Types Packs/Day Years Used Date Smoking Tobacco: Never Smokeless Tobacco: Never Alcohol Use Standard Drinks/Week Comments Never 0 (1 standard drink = 0.6 oz pur e alcohol) Depression Answer Date Recorded Patient Health Questionnaire-9 Score 19 08/29/2024 Patient Health Questionnaire-9 Score 19 08/29/2024 Last PHQ-9: Questionnaire Data Not on file 0 08/29/2024 Housing Stability Answer Date Recorded What is your housing situation today? I have tori blake 04/03/[address] you li ve. Do you have problems with any of the following? None of the above 04/03/2023 Food Insecurity Answer Date Recorded Within the past 12 months, y ou worried that your food would run out before you got money to buy more: Sometimes True 2024 Within the past 12 months,th e food you bought just didn't last and you didn't have enough money to get more: Sometimes True 08/29/2024 Transportation Answer Date Recorded In the past 12 months, has l ack of transportation kept you from medical appts, meetings, work or from getting things needed for daily living? Yes, it has kept me from medical appointments or getting medications. 08/29/2024 Utilities Answer Date Recorded In the past 12 months, has t he electric, gas, oil or water company threatened to shut off services in your home? No 04/03/2023 Depression Answer Date Recorded Patient Health Questionnaire-2 Score 4 08/29/2024 Internet Access Answer Date Recorded Internet Access Q1 Yes 08/29/2024 Internet Access Q2 Not on file 08/29/2024 Comments No Sex and Gender Information Value Date Recorded Sex Assigned at Female 04/07/2022 10:17 AM EDT Legal Sex Female 10:17 AM EDT Gender Identity Female 04/07/2022 10:17 AM EDT Sexual Orientation Straight 04/07/2022 10 :17 AM EDT documented as of this encounter Miscellaneous Notes * Telephone Encounter - Lena Orozco RN - 09/02/2024 9:02 AM EDT Telephone call to pt using [employer] 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 Advised that inflammatory marker came back elevated in lab results which may be related to autoimmune thyroid disease and that PCP ordered additional labs at her convenience. Pt verbalized understanding, no further questions. * Telephone Encounter - Lena Orozco RN - 09/02/2024 8:57 AM EDT ----- Message from Kate Penn MD sent at 09/02/2024 6:59 AM EDT ----- Please inform patient that her inflammatory marker and Immunoglobulin A antibody are high, which ispossibly due to her autoimmune thyroid disease. Please ask her to get an additional lab on her convenience. Thank you documented in this encounter Plan of Treatment Upcoming Encounters Date Type Department Care Team (Late st Contact Info) Description 09/13/2024 9:30 AM EDT Clinical Support [facility] MEDICINE [address] [place] [address] documented as of this encounter Visit Diagnoses Not on filedocumented in this encounter Additional Health Concerns Assessment Noted Time PHQ-9 Depression Total Score: 19 025 11:08 AM EDT documented as of this encounter Care Teams Freight And Passenger Agent Relationship Specialty Start Date End Date Kate Penn MD [address] [place] [address] PCP - General Family Medicine 03/21/13 documented as of this encounter
--- OUTSIDE RECORDS SUMMARY | 2024-09-06 13:50 | XMS_ITS | Encounter Summary ---
Author Organization [employer] Address [address] [place] [address] Care Team Providers Care Fund Development Manager Name Role Phone Kate Penn MD Primary Care Provider [phone] Reason for Visit * Reason Onset Date Comments Med Refill 03/08/2024 Encounter Details Date Type Department Care Team (Late st Contact Info) Description 03/08/2024 Refill [facility] MEDICINE [address] [place], [place] [phone] Kate Penn MD [address] [place], [place] [phone] Social History Tobacco Use Types Packs/Day Years Used Date Smoking Tobacco: Never Smokeless Tobacco: Never Alcohol Use Standard Drinks/Week Comments Never 0 (1 standard drink = 0.6 oz pur e alcohol) Depression Answer Date Recorded Patient Health Questionnaire-9 Score 11 03/07/2024 Patient Health Questionnaire-9 Score 11 03/07/2024 Last PHQ-9: Questionnaire Data Not on file 0 03/07/2024 Housing Stability Answer Date Recorded What is [...] Answer Date Recorded Patient Health Questionnaire-2 Score 3 03/07/2024 Comments Unknown Sex and Gender Information Value [...] Description 09/13/2024 9:30 AM EDT Clinical Support [facility]INE [address] [place] [address] documented as of this encounter Visit Diagnoses Not on filedocumented in this encounter Additional Health Concerns Assessment Noted Time PHQ-9 Depression Total Score: 11 024 11:55 AM EDT documented as of this encounter Care Teams Fund Development Manager Relationship Specialty Start Date End Date Kate Penn MD [address] [place] [address] PCP - General Family Medicine 03/21/13 documented as of this encounter
--- OUTSIDE RECORDS SUMMARY | 2024-09-06 13:50 | XMS_ITS | Encounter Summary ---
Author Organization [employer] Address [address] [place] [address] Care Team Providers Care Risk Management Professional Name Role Phone Kate Penn MD Primary Care Provider [phone] Encounter Details Date Type Department Care Team ([facility] st Contact Info) Description 05/06/2023 Orders Only [facility] MEDICINE [address] [place], [place] [phone] Kate Penn MD [address] [place], [place] [phone] Chronic low back pain, unspecified back pain laterality, unspecified whether sciatica present (Primary Dx) Social History Tobacco Use Types [...] Description 09/13/2024 9:30 AM EDT Clinical Support [facility] MEDICINE [address] [place] [address] documented as of this encounter Visit Diagnoses Diagnosis Chronic low back pain, unspecified back pain laterality, unspecified whether sciatica present- Primary documented in this encounter Additional Health Concerns Assessment Noted Time PHQ-9 Depression Total Score: 7 04/14/20 23 1:37 PM EST documented as of this encounter Care Teams Risk Management Professional Relationship Specialty Start Date End Date Kate Penn MD [address] [place] [address] PCP - General Family Medicine 03/21/13 documented as of this encounter
--- OUTSIDE RECORDS SUMMARY | 2024-09-06 13:50 | XMS_ITS | Encounter Summary ---
Author Organization [employer] Address [address] [facility] 7 [place] [address] Care Team Providers Care Welfare Officer Name Role Phone Kate Penn MD Primary Care Provider [phone] Reason for Referral * Chiropractic (Routine) - Closed Specialty Diagnoses / Procedures Referred By Mariluz duval Referred To Contact Chiropractic Medicine Diagnoses Chronic low back pain, unspecified back pain laterality, unspecified whether sciatica present Kate Penn MD [address] [place] [phone] Phone: tel: fax: [facility] [address] [place] [address] Phone: tel: fax: Referral ID Status Reason Start Date Expiration Date V isits Requested Visits Authorized [id number] Closed Specialty Services Required 11/11/2023 11/10/2024 20 20 Encounter Details Date Type Department Care Team (Late st Contact Info) Description 11/06/2023 Orders Only [facility] MEDICINE [address] [place] [phone] Kate Penn MD [address] [place] [address] [phone] Chronic low back pain, unspecified back pain [...] Description 09/13/2024 9:30 AM EDT Clinical Support [facility] [address] [place] [phone] Scheduled Referrals Name Type Priority Associated Diagnoses Orde r Schedule Referral to Chiropractic Outpatient Referral Routine Chronic low back pain, unspecified back pain laterality, unspecified whether sciatica present Expected: 11/06/2023 (Approximate), Expires: 11/05/2024 documented as of this encounter Visit Diagnoses Diagnosis Chronic low back pain, unspecified back pain laterality, unspecified whether sciatica present- Primary documented in this encounter Additional Health Concerns Assessment Noted Time PHQ-9 Depression Total Score: 7 04/14/20 23 1:37 PM EST documented as of this encounter Care Teams Welfare Officer Relationship Specialty Start Date End Date Kate Penn MD [address] [place] [address] PCP - General Family Medicine 03/21/13 documented as of this encounter
--- OUTSIDE RECORDS SUMMARY | 2024-09-06 13:50 | XMS_ITS | Encounter Summary ---
Author Organization [employer] Address [address] [place] [address] Care Team Providers Care Mapping Specialist Name Role Phone Kate Penn MD Primary Care Provider [phone] Reason for Visit * Reason Onset Date Comments Created in error 12/16/2023 Encounter Details Date Type Department Care Team ([facility] st Contact Info) Description 12/16/2023 Telephone [facility] MEDICINE [address] [place], [place] [phone] Kate Penn MD [address] [place], [place] [phone] Created in error Social History Tobacco Use Types Packs/Day Years [...] Description 09/13/2024 9:30 AM EDT Clinical Support [facility] MEDICINE [address] [place] [address] documented as of this encounter Visit Diagnoses Not on filedocumented in this encounter Additional Health Concerns Assessment Noted Time PHQ-9 Depression Total Score: 7 04/14/20 23 1:37 PM EST documented as of this encounter Care Teams Mapping Specialist Relationship Specialty Start Date End Date Kate Penn MD [address] [place] [address] PCP - General Family Medicine 03/21/13 documented as of this encounter
--- OUTSIDE RECORDS SUMMARY | 2024-09-06 13:50 | XMS_ITS | Clinical Summary ---
Author Organization [employer] Address [address] [place] [address] Care Team Providers Care Cdl Bulk Driver Name Role Phone Kate Penn MD Primary Care Provider [phone] Allergies No known active allergies Medications LORazepam (Ativan) 0.5 MG tablet Take 1 tablet by mouth if needed at bedtime. Active fexofenadine (Yee) 180 MG tablet Take 1 tablet by mouth at bed time. 09/20/19 21 Active hydrocortisone 1 % cream Apply topically every 12 (twelve) hours. 10/11/19 22 Active hydrocortisone 2.5 % ointment Apply topically at bed time. 09/22/19 20 Active montelukast (Singulair) 10 MG tablet Take 1 tablet by mouth at bed time. 10/11/19 21 Active sodium chloride ([place]) 0.65 % nasal spray Use intranasally to moisten nose and/or before & after blowing nose, as needed / [facility] LABEL 11/30/19 20 Active Witch Anali (Medicated Pads) 50 % pads Apply topically in the morning. 10/11/19 22 Active Hydrocortisone, Perianal, 1 % cream APPLY A THIN LAYER TO AFFECTED AREA(S) 2 TO 3 TIMES PER DAY 10/11/19 22 Active escitalopram (Lexapro) 5 MG tablet Take 5 mg by mouth at bedtime. 08/29/19 23 Active cyclobenzaprine (Flexeril) 5 MG tablet TAKE 1 OR 2 TABLETS BY MOUTH THREE TIMES DAILY NEEDED FOR BACK PAIN 45 tablet 3 04/14/20 23 Active Diclofenac Sodium 1 % gel Apply to affected area once or twice daily as needed for pain 150 g 3 10/15/19 24 Active loratadine (Claritin) 10 MG tablet Take 1 tablet (10 mg) by mouth Once per day. 90 tablet 3 10/15/19 24 2024 Active levothyroxine (Synthroid, Levoxyl) 100 MCG tablet Take 1 tablet (100 mcg) by mouth Once per day. 90 tablet 3 10/15/19 24 Active Ventolin HFA 108 (90 Base) MCG/ACT inhalerIndicati ons:Mild intermittent asthma without complication INHALE 2 PUFFS BY MOUTH EVERY 6 HOURS NEEDED FOR WHEEZING 18 g 1 12/14/19 24 Active fluticasone (Flonase) 50 MCG/ACT nasal spray INSTILL 1 SPRAY IN EACH NOSTRIL ONCE DAILY 48 g 01/06/20 24 Active SUMAtriptan (Imitrex) 50 MG tabletIndicatio ns:Migraine without aura and without status migrainosus, not intractable Take 1 tablet (50 mg) by mouth 1 (one) time if needed for migraine. May repeat dose once in 2 hours if no relief. Do not exceed 2 doses in 24 hours. 10 tablet 1 03/07/20 24 Active estradiol (Climara) 0.025 MG/24HR Place 1 patch on the skin 1 (one) time per week. 4 patch 11 04/20/20 24 Active Lidoderm 5 % patch APPLY 1-2 PATCHES TO SKIN EVERY DAY NEEDED FOR PAIN. MAY LEAVE ON UP TO 12 HOURS THEN REMOVE POR 12 HOURS 60 patch 2 03/16/20 24 Active omeprazole (PriLOSEC) [address] capsule TAKE 1 CAPSULE BY MOUTH EVERY DAY BEFORE MEAL 90 capsule 1 09/06/19 25 Active omeprazole (PriLOSEC) [address] capsule TAKE 1 CAPSULE BY MOUTH EVERY DAY BEFORE A MEAL 90 capsule 1 03/07/20 24 2024 Discontinued Active Problems Problem Noted Date Diagnosed Date Maternal hypotension syndrome, antepartum 2024 Syncope 07/21/2024 Assessment & Plan (08/29/2024 12:16 PM EDT): -Pt has upcoming appointment with cardiology -Will evaluate with heart monitor and head imaging Assessment & Plan (07/21/2024 4:08 PM EST): Likely vasovagal given hypotension. Hemodynamically stable, currently no symptoms of dizziness. -referred to Cardiology. Hypotension 07/21/2024 Assessment & Plan (08/29/2024 12:11 PM EDT): -Reported home BP low but normal; higher in the clinic -Pt was advised to bring her BP monitor so that we can check that the machine is functioning normally -Pt has upcoming appointment with material control manager in October Assessment & Plan (07/21/2024 4:08 PM EST): Reported hypotension with systolic in 70's post syncopal episode. -referred to cardiology Low libido 10/15/2023 Assessment & Plan (10/15/2023 10:35 AM EDT): - ? Perimenopause - will discuss treatment options after her lab and mammography Perimenopause 10/15/2023 Assessment & Plan (03/15/2024 9:11 AM EDT): - patient is having hot flashes - will check TSH, and if normal, will consider HRT Assessment & Plan (10/15/2023 10:36 AM EDT): - possible perimenopause - will check lab - patient does not have a significant hot flash at this time BMI 30.0-30.9,adult 04/17/2023 Assessment & Plan (09/02/2024 6:39 AM EDT): - Continue working on lifestyle modifications. - Generic advice as below. Tailor for your unique body, character, and specific condition. Dietary Recommendations: Fruits, vegetables, whole grains, protein foods, and fat-free or low-fat dairy products are healthy choices. Eat different types of protein foods in your diet. This can include seafood, lean meats, poultry, beans, peas, lentils, nuts, seeds, soy products, and eggs. Limit foods and beverages higher in added sugars, saturated fat, and sodium. Exercise Recommendations: At least 150 minutes of moderate-intensity physical activity per week, or an equivalent combination of moderate- and vigorous-intensity activity Hemorrhoids 04/17/2023 Assessment & Plan (04/17/2023 1:27 PM EST): - prevent constipation - previously using topical cream / suppository - sitz bath Lipoma of skin and subcutaneous tissue (excludin g face) 10/15/2015 Simple renal cyst 10/15/2015 History of smoking 10/15/2015 Migraine 06/21/2015 Assessment & Plan (03/08/2024 8:34 AM EDT): - continue judicious use of sumatriptan prn Assessment & Plan (04/17/2023 1:24 PM EST): - continue judicious use of sumatriptan prn Mixed anxiety and depressive disorder 06/21/2015 Assessment & Plan (08/29/2024 12:15 PM EDT): - Currently receiving lorazepam and escitalopram - Current [facility] provider is [facility] -Pt has labile mood possibly due to menopause -Continue current treatment plan -Pt requests ELECTR[employer] CASTER service so that someone can stay with her during the day -Recommended day program Assessment & Plan (04/14/2024 12:33 PM EST): It seems to be controlled, it is possible that recent vasovagal sxs, had trigger mild anxiety at the time. I advised he to cut down to off lorazepam slowly and fu with psychiatry provider, may need to restart Lexapro. Assessment & Plan (03/08/2024 8:34 AM EDT): - previously receiving lorazepam and escitalopram - will check her current S provider and treatment plan Assessment & Plan (04/17/2023 1:23 PM EST): - previously receiving lorazepam and escitalopram - will check her current S provider and treatment plan Allergic rhinitis 09/21/2014 Assessment & Plan (03/08/2024 8:33 AM EDT): - previously prescribed montelukast, questionable adherence - will prescribe flonase and loratadine Assessment & Plan (10/15/2023 10:34 AM EDT): - previously prescribed montelukast, questionable adherence - will prescribe flonase and loratadine Assessment & Plan (04/17/2023 1:25 PM EST): - previously prescribed montelukast, questionable adherence Asthma 05/26/2013 Assessment & Plan (08/29/2024 11:26 AM EDT): - improved after smoking cessation - continue albuterol HFA prn Assessment & Plan (03/08/2024 8:33 AM EDT): - improved after smoking cessation - continue albuterol HFA prn Assessment & Plan (10/15/2023 10:33 AM EDT): - improved after smoking cessation - continue albuterol HFA prn Assessment & Plan (04/17/2023 1:20 PM EST): - improved after smoking cessation - continue albuterol HFA prn Uterine leiomyoma 05/26/2013 Chronic low back pain 01/21/2012 Assessment & Plan (09/02/2024 6:41 AM EDT): - she has tried PT for 6 weeks, no significant improvement - continue judicious use of NSAIDs, APAP, and cyclobenzaprine - MRI in Apr 2024 1. Discogenic degenerative changes at L4-L5 and L5-S1 with mild broad-based shallow central disc protrusion at L5-S1 and mild disc bulging at L4-L5 without significant spinal canal or neural foraminal stenosis. Assessment & Plan (03/15/2024 9:12 AM EDT): - she has tried PT for 6 weeks, no significant improvement - continue judicious use of NSAIDs, APAP, and cyclobenzaprine - evaluate with MRI Assessment & Plan (10/15/2023 10:34 AM EDT): - referred to physical therapy, patient was advised to contact PT to schedule appointment - consider imaging study if no improvement after 6 wks of PT - continue judicious use of NSAIDs, APAP, and cyclobenzaprine Assessment & Plan (04/17/2023 1:25 PM EST): - refer to physical therapy - consider imaging study if no improvement after 6 wks of PT - continue judicious use of NSAIDs, APAP, and cyclobenzaprine Hypothyroidism 01/21/2012 Assessment & Plan (08/29/2024 12:09 PM EDT): - normal TSH in February 2024 - continue current replacement Assessment & Plan (03/08/2024 8:33 AM EDT): - normal TSH in October 2022 - continue current replacement Assessment & Plan (10/15/2023 10:33 AM EDT): - normal TSH in October 2022 - continue current replacement Assessment & Plan (04/17/2023 1:21 PM EST): - normal TSH in October 2022 - continue current replacement Insomnia due to mental disorder 01/21/2012 Posttraumatic stress disorder 01/21/2012 Resolved Problems Problem Noted Date Diagnosed Date Resolved Date Vasovagal syncope 04/14/2024 09/02/2024 Assessment & Plan (04/14/2024 12:37 PM EST): Resolved, advised to stay hydrated, specially when doing physical activities for long periods of time. Advised to eat low carb meals (ideally with 1 portion of protein) at least 3x/d, take her meds after meals and avoid lorazepam or flexeril when driving or performing activities that require vigilance. FU with PCP. Encounters Date Type Department Care Team Description 09/05/2024 Refill [facility] [address] [place] [address] Kate Penn MD 09/04/2024 Refill [facility] [address] [place] [address] Kate Penn MD 09/02/2024 Telephone [facility] [place] [address] Kate Penn MD Results 09/02/2024 Orders Only [facility] [place] [address] Kate Penn MD 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); Renal insufficiency; Syncope, unspecified syncope type; Elevated BP without diagnosis of hypertension 08/29/2024 11:00 AM EDT Office Visit [facility] [place] [address] Kate Penn MD Acquired hypothyroidism (Primary Dx); Polyarthralgia; Diarrhea, unspecified type; Abdominal discomfort; Hypotension, unspecified hypotension type; Mixed anxiety and depressive disorder; Perimenopause; Syncope, unspecified syncope type; Dietary counseling; Exercise counseling; Class 1 obesity without serious comorbidity with body mass index (BMI) of 30.0 to 30.9 in adult, unspecified obesity type; BMI 30.0-30.9,adult; Chronic low back pain, unspecified back pain laterality, unspecified whether sciatica present 08/29/2024 Travel 08/25/2024 Telephone [facility] [place] [address] Kate Penn MD chart prep 08/19/2024 Population Health Risk Score [facility] () Department [address] [place] [address] [phone] Provider, Population Health Generic 07/21/2024 3:40 PM EST Office Visit [facility] [place], [place] [phone] Selma Fuller MD Syncope, unspecified syncope type (Primary Dx); Hypotension, unspecified hypotension type; Maternal hypotension syndrome, antepartum 07/21/[address] [phone] Kate Penn MD 07/19/[address] [phone] Nila Friend [place] chart prep from Last 3 Months Immunizations Name Administration Dates Next Due Hep A, Adult 08/12/2010,10/22/2009 Hep B, adult 05/09/2011,08/12/2010,10/12/2009 Influenza injectable quadriv alent IIV4 with preservative 03/09/2018,02/25/2016 Influenza injectable quadriv alent preservative free 04/14/2023,03/10/2017,08/08/2014 Influenza, IIV3, injectable 03/06/2010, 9 Influenza, Split (incl. marco fied surface antigen) 05/26/2013 Influenza, seasonal, injecta ble, preservative free 03/07/2024 Pneumococcal Conjugate PCV 20 03/07/2024 Pneumococcal Polysaccharide PPSV23 02/13/2015 TD (adult), 2 Lf tetanus tox oid, preservative free, adsorbed 12/20/2004 Tdap 04/14/2023,05/09/2011 Family History Medical History Relation Name Comments Hypertension Father Coronary artery disease Maternal Grandfather Diabetes Mother Hypertension Mother Diabetes Sister Relation Name Status Comments Father Maternal Grandfather Mother Sister Social History Tobacco Use Types Packs/Day Years Used Date Smoking Tobacco: Never Smokeless Tobacco: Never Tobacco Cessation:Counseling Given: Not Answered Alcohol Use Standard Drinks/Week Comments Never 0 (1 standard drink = 0.6 oz pur e alcohol) Depression Answer Date Recorded Patient Health Questionnaire-9 Score 08/29/2024 Patient Health Questionnaire-9 Score 19 08/29/2024 Last PHQ-9: Questionnaire Data Not on file 0 08/29/2024 Housing Stability Answer Date Recorded What is your housing situation today? I have torijennie blake 04/03/[address] you [...] Orientation Straight 04/07/2022 10 :17 AM EDT Last Filed Vital Signs Vital Sign Reading Time Taken Comments Blood Pressure 150/90 08/29/2024 11:29 AM EDT Pulse 78 08/29/2024 11:02 AM EDT Temperature 36.4 ??C (97.5 ??F) 08/29/2024 11:02 AM E DT Respiratory Rate 20 08/29/2024 11:02 AM EDT Oxygen Saturation 98% 08/29/2024 11:02 AM EDT Inhaled Oxygen Concentration - - Weight 78 kg (172 lb) 08/29/2024 11:02 AM EDT Height 160 cm (5' 3 ) 08/29/2024 11:02 AM EDT Body Mass Index 30.47 08/29/2024 11:02 AM EDT Plan of Treatment Upcoming Encounters Date Type Department Care Team (Late st Contact Info) Description 09/13/2024 9:30 AM EDT Clinical Support [facility] [address] [place] [phone] Health Maintenance Due Date Last Done Comments CT Colonography 1973 Colonoscopy 1973 Colorectal Cancer Screening 1973 FIT DNA/Cologuard 1973 FIT 1973 FOBT 1973 Sigmoidoscopy 1973 Family Planning (PISQ) 1988 Pap Smear 1994 Zoster Vaccines (1 of 2) 2023 COVID-19 Vaccine ( season) 2024 Depression Monitoring (PHQ-9) 03/01/2025 08/29/2024, 08/29/2024 Alcohol/Substance Use Screening 03/07/2025 03/07/2024 Depression Screening 08/29/2025 08/29/2024, 08/30/19 25 SDOH Screening 08/29/2025 08/29/2024 Tobacco Screening 09/02/2025 09/02/2024 Mammogram 10/04/2025 10/05/2023, 06/10, 07/07/2022, Additional history exists Cervical Cancer Screening 06/24/2026 HPV/Cotest 06/24/2026 06/24/2021, 06/08, 08/08/2019 Lipid Panel 10/14/2028 10/15/2023, 09/10/2021 DTaP/Tdap/Td Vaccines (3 - Td or Tdap) 04/14/2033 04/14/2023, 05/09/2011, 12/20/2004 RSV Patients and Patients Aged 60 years or older (1 - 1-dose 75+ series) 2048 Hepatitis A Vaccines Aged Out 08/12/2010, 10/23/19 10 No longer eligible based on patient's age to complete this topic Hepatitis B Vaccines Completed 05/09/2011, 08/12/2010, 10/12/2009 HIV Screening Completed 10/15/2023, 09/2020, 08/09/2019 Hepatitis C Screening Completed 10/15/2023 , 10/09/2020, 08/09/2019 Influenza Vaccine Completed 03/07/2024, , 03/09/2018, Additional history exists Pneumococcal Vaccine: 50+ Years Completed 03/07/2024, 02/13/2015 HIB Vaccines Aged Out No longer eligi ble based on patient's age to complete this topic HPV Vaccines Aged Out No longer eligi ble based on patient's age to complete this topic IPV Vaccines Aged Out No longer eligi ble based on patient's age to complete this topic Meningococcal Vaccine Aged Out No damari benson eligible based on patient's age to complete this topic RSV under 20 months Aged Out No longe r eligible based on patient's age to complete this topic Rotavirus Vaccines Aged Out No longer eligible based on patient's age to complete this topic Procedures Procedure Name Priority Date/Time Associated Diagnosis Comments URINALYSIS, COMPLETE, WITH REFLEX TO CULTURE Routine 09/06/2024 11:22 AM EDT Renal insufficiency Elevated BP without diagnosis of hypertension HELICOBACTER PYLORI AG, EIA, STOOL Routine 08/30/2024 8:45 AM EDT Diarrhea, unspecified type Abdominal discomfort CELIAC DISEASE COMPREHENSIVE PANEL Routine 08/29/2024 11:56 AM EDT Diarrhea, unspecified type VITAMIN D,25-OH,TOTAL,IA Routine 08/29/2024 11:56 AM EDT Polyarthralgia C-REACTIVE PROTEIN Routine 08/29/2024 11 :56 AM EDT Polyarthralgia SED RATE BY MODIFIED WESTERGREN Routine 08/29/2024 11:56 AM EDT Polyarthralgia CYCLIC CITRULLINATED PEPTIDE (CCP) AB (IGG) Routine 08/29/2024 11:56 AM EDT Polyarthralgia RHEUMATOID FACTOR Routine 08/29/2024 11: 56 AM EDT Polyarthralgia REX SCREEN, IFA, W/REFL TITER AND PATTERN Routine 08/29/2024 11:56 AM EDT Polyarthralgia CBC WITH AUTO DIFFERENTIAL Routine 08/29/2024 11:56 AM EDT Polyarthralgia TSH W/REFLEX TO FT4 Routine 08/29/2024 1 1:56 AM EDT Polyarthralgia HEPATITIS C AB W/REFL TO HCV RNA, QN, PCR Routine 10/15/2023 11:32 AM EDT Routine screening for STI (sexually transmitted infection) HIV 1/2 ANTIGEN/ANTIBODY, FOURTH GENERATION W/RFL Routine 10/15/2023 11:32 AM EDT Routine screening for STI (sexually transmitted infection) LIPID PANEL WITH REFLEX TO DIRECT LDL Routine 10/15/2023 11:32 AM EDT Screening for lipid disorders BI MAMMOGRAM SCREENING TOMOSYNTHESIS BILATERAL Routine 10/05/2023 9:00 AM EDT ZZZ HISTORICAL HPV E6/E7 RFLX LEEANN 16 18/45 Routine 06/24/2021 12:11 PM EST from Last 3 Months or Most Recently Relevant to Health Maintenance Results * (ABNORMAL) Urinalysis, Complete, with Reflex to Culture (09/06/2024 11:22 AM EDT) Color Urine Yellow [facility] Appearance Urine Clear [facility] PH 6.0 5.0 - 9.0 [facility] Glucose Urine UA Negative Negative mg/dL [facility] Urine Blood Small (1+)(A) Negative [facility] Specific [place] - Urine 1.015 1.005 - 1.025 [facility] Urine Protein Negative Neg-Trace mg/dL [facility] Urine Ketones Negative Negative mg/dL [facility] Nitrite Urine Negative Negative [facility] Leukocyte Esterase Urine Trace(A) Negative [facility] RBC Urine 0-2 0 - 2 /HPF [facility] Urine WBC 6-10 0 - 5 /HPF [facility] Urine Squamous Epithelial Cell 3-5 0 - 2 /HPF [facility] Urine Bacteria None Seen None Seen [facility] Hyaline Casts, Urine 0-2 0 - 2 /LPF [facility] Urine 09/06/2024 11:2 2 AM EDT 09/06/2024 1:02 PM EDT Narrative [facility] - 09/06/2024 1:32 PM EDT Urine, Clean Catch us Kate Penn MD LAB URINE ORDERABLES Final Resul t [facility] [address], [place] [phone] * Helicobacter pylori??Antigen, EIA, Stool (08/30/2024 8:45 AM EDT) H pylori Ag Stool SEE NOTE [facility] Comment:HELICOBACTER PYLORI AG, EIA, STOOL Micro Number: [id number] Test Status: Final Specimen Source: Stool Specimen Quality: Adequate H.pylori Ag: Not Detected Antimicrobials, proton pump inhibitors, and bismuth preparations inhibit H. pylori and ingestion up to two weeks prior to testing may cause false negative results. If clinically indicated the test should be repeated on a new specimen obtained two weeks after discontinuing treatment. Reference Range: Not DetectedTHIS TEST WAS PERFORMED AT:[employer] [place] [id number] AVILA MD Stool Rectal contents / Unknown 08/30/2024 8:45 AM EDT 08/30/2024 2:32 PM EDT Kate Penn MD LAB BODY FLUIDS AND STOOLS ORDER CARLITO Final Result [facility] [address] [place] [phone] [phone] * Vitamin D, 25-Hydroxy, Total, Immunoassay (08/29/2024 11:56 AM EDT) Vitamin D 25-OH Total 55.1 >30 ng/mL [facility] Comment: Health Based Reference Values*< 20 ??ng/mL ??Yilrftgxw78-56 ng/mL ??Insufficient> 30 ??ng/mL ??Sufficient*Mikala RYAN. N Engl J Med. 2007;[id number]:266-280There is no well-established upper level of normal vitamin Dlevels. Some laboratories use 50 ng/mL as an upper limit ofnormal. However, toxicity is patient-dependent and may occurat any level. Careful correlation with the patient'spresentation is necessary and, if there is concern forvitamin D toxicity, treatment should be consideredirrespective of the serum level.Care must be taken in interpreting Vitamin D results fromdifferent laboratories and methodologies. ??Published datademonstrated that results from patients undergoinghemodialysis may show a negative bias when tested withvarious automated 25-OH vitamin D assays when compared toLC- MS/MS.When testing samples from patients whose predominant form ofVitamin D is Vitamin D2, such as patients receiving VitaminD2 supplementation, results that are subtherapeutic shouldbe confirmed with another method such as LC-MS/MS. Blood Venous blood specimen / Unknown 08/29/2024 11:56 AM EDT 08/29/2024 1:16 PM EDT us Kate Penn MD LAB BLOOD ORDERABLES Final Resul t Performing Organization Address City/[facility]/ZIP Co de Phone Number [facility] [address] [place] [phone] * TSH with Reflex to Free T4 (08/29/2024 11:56 AM EDT) TSH reflex Free T4 0.45 0.32 - 4.0 uIU/mL [facility] Blood 08/29/2024 11:5 6 AM EDT 08/29/2024 1:16 PM EDT us Kate Penn MD LAB BLOOD ORDERABLES Final Resul t Performing Organization Address [facility] Co de Phone Number [facility] [address] [place] [phone] * CBC auto differential (08/29/2024 11:56 AM EDT) White Blood Count 8.7 4.8 - 10.8 X10*3/uL [facility] Red Blood Count 4.71 4.20 - 5.50 X10*6/uL [facility] Hemoglobin 13.5 12.0 - 16.0 g/dl [facility] Hematocrit 41.3 37.0 - 47.0 % [facility] Mean Corpuscular Volume 87.7 80.0 - 98.0 fL [facility] Mean Corpuscular Hemoglobin 28.7 27.0 - 33.0 pg [facility] Mean Corpuscular HGB Conc 32.7 31.0 - 35.0 g/dl [facility] Red Cell Distribution Width 14.6 11.0 - 16.0 % [facility] Platelet Count 284 160 - 400 X10*3/uL [facility] Mean Platelet Volume 11.1 9.4 - 12.3 fL [facility] Neutrophils Percent Auto 52.8 45 - 73 % [facility] Imm Gran Pct Auto 0.2 0.0 - 0.4 % [facility] Lymphocytes Percent Auto 35.6 20 - 40 % [facility] Monocytes Percent Auto 10.2 2 - 11 % [facility] Eosinophils Percent Auto 0.6 0 - 4 % [facility] Basophils Percent Auto 0.6 0 - 2 % [facility] NRBC Pct Auto 0.0 0.0 - 0.2 /100WBC [facility] Neutrophils Absolute Auto 4.6 2.0 - 8.3 x10*3/uL [facility] Imm Gran Abs Auto 0.02 0.00 - 0.03 X10*3/uL [facility] Lymphocytes Absolute Auto 3.1 1.2 - 4.9 X10*3/uL [facility] Monocytes Absolute Auto 0.9 0.1 - 1.2 X10*3/uL [facility] Eosinophils Absolute Auto 0.1 0.0 - 0.4 X10*3/uL [facility] Basophils Absolute Auto 0.1 0.0 - 0.2 X10*3/uL [facility] NRBC Abs Auto 0.000 0.0 - 0.012 X10*3/uL [facility] Blood Venous blood specimen / Unknown 08/29/2024 11:56 AM EDT 08/29/2024 1:16 PM EDT us Kate Penn MD LAB BLOOD ORDERABLES Final Resul t [facility] [address] [place] [phone] * Cyclic Citrullinated Peptide (CCP) Antibody (IgG) (08/29/2024 11:56 AM EDT) Pathologist [facility] Cyclic Citrullinated Peptide <16 UNITS [facility] Comment:Reference RangeNegat stefany: <20Weak Positive: 20-39Moderate Positive: 40-59Strong Positive: >59THIS TEST WAS PERFORMED AT:[employer] [address] [id number] AVILA MD Blood Venous blood specimen / Unknown 08/29/2024 11:56 AM EDT 08/29/2024 1:16 PM EDT Kate Penn MD LAB BLOOD ORDERABLES Final Resul t Performing Organization Address [facility] Co de Phone Number [facility] [address] [place] [phone] * (ABNORMAL) Celiac Disease Comprehensive Panel (08/29/2024 11:56 AM EDT) Pathologist [facility] Immunoglobulin A 646(A) 47 - 310 mg/dL [facility] Comment:THIS TEST WAS PERFOR MED AT:[facility] [address] [id number] AVILA MD Transglutaminase IgA <1.0 U/mL [facility] Comment:Value Interpretation ----- <15.0 Antibody not detected> or = 15.0 Antibody detected Interpretation SEE NOTE [facility] Comment:No serological evide nce of celiac disease.Total serum IgA is elevated. Consider mucosalinflammatory conditions or underlying gammopathy. Blood Venous blood specimen / Unknown 08/29/2024 11:56 AM EDT 08/29/2024 1:16 PM EDT Kate Penn MD LAB BLOOD ORDERABLES Final Resul t Performing Organization Address [facility]/ZIP Co de Phone Number [facility] [address] [place] [phone] * (ABNORMAL) Sed Rate by Modified Westergren (08/29/2024 11:56 AM EDT) Erythrocyte Sedimentation Rate 34(H) 0 - 20 MM/HR [facility] Comment:Patients with polycy themia and many hemoglobin abnormalitiesmay have depressed sed rates whereas patients with anemiamay have elevated sed rates. Blood Venous blood specimen / Unknown 08/29/2024 11:56 AM EDT 08/29/2024 1:16 PM EDT us Kate Penn MD LAB BLOOD ORDERABLES Final Resul t Performing Organization Address [facility] Co de Phone Number [facility] [address] [place] [phone] * Rheumatoid Factor (08/29/2024 11:56 AM EDT) Rheumatoid Factor <13.0 <15.0 IU/mL [facility] Blood Venous blood specimen / Unknown 08/29/2024 11:56 AM EDT 08/29/2024 1:16 PM EDT us Kate Penn MD LAB BLOOD ORDERABLES Final Resul t Performing Organization Address City/[facility]/ZIP Co de Phone Number [facility] [address] [place] [phone] * C-reactive Protein (08/29/2024 11:56 AM EDT) C Reactive Protein 0.24 < or = 0.50 mg/dL [facility] Blood Venous blood specimen / Unknown 08/29/2024 11:56 AM EDT 08/29/2024 1:16 PM EDT Kate Penn MD LAB BLOOD ORDERABLES Final Resul t [facility] [address] [place] [phone] * REX Screen,IFA, with Reflex to Titer and Pattern (08/29/2024 11:56 AM EDT) Anti Nuclear Antibody Screen NEGATIVE NEGATIVE [facility] Comment:REX IFA is a first l ine screen for detecting thepresence of up to approximately 150 autoantibodies invarious autoimmune diseases. A negative REX IFA resultsuggests an REX-associated autoimmune disease is notpresent at this time, but is not definitive. If thereis high clinical suspicion for Sjogren's syndrome,testing for anti-SS-A/Ro antibody should be considered.Anti-Khadra-1 antibody should be considered for clinicallysuspected inflammatory myopathies.AC-0: NegativeInternational Consensus on REX Patterns(https://doi.org/10.1515/zuuh-8368-6609)For additional information, please refer tohttp://education.EyeScribes/faq/EMZ473(This link is being provided for informational/educational purposes only.)THIS TEST WAS PERFORMED AT:[employer] [place] [phone] AVILA MD REX Titer [facility] REX Pattern [facility] REX TITER 2 (REF LAB) [facility] REX Pattern 2 [facility] REX TITER 3 [facility] REX PATTERN 3 [facility] Blood Venous blood specimen / Unknown 08/29/2024 11:56 AM EDT 08/29/2024 1:16 PM EDT us Kate Penn MD LAB BLOOD ORDERABLES Final Resul t [facility] [address] [place] [phone] * (ABNORMAL) Lipid Panel with Reflex to Direct LDL (10/15/2023 11:32 AM EDT) Triglycerides 126 <150 mg/dL [facility] Comment:Desirable Triglyceri de: less than 150 mg/dLBorderline High Triglyceride 150-199 mg/dLHigh Triglyceride: 200-499 mg/dLVery High Triglyceride: greater than or equal to 5OO mg/dL Cholesterol 177 <200 mg/dL [facility] Comment:Desirable Cholestero l: less than 200 mg/dLBorderline High Cholesterol: 200-239 mg/dLHigh Cholesterol: greater than 239 mg/dL LDL Cholesterol Calculated 101(H) <100 mg/dL [facility] Comment:Desirable LDL: less than 100 mg/dLNear Optimal/Above Optimal LDL: 110- 129 mg/dLBorderline High LDL: 130-159 mg/dLHigh LDL: 160-189 mg/dLVery High LDL: greater than or equal to 190 mg/dL HDL Cholesterol 51 >40 mg/dL [facility] Comment:Desirable HDL: great er than 40 mg/dL Note: This HDL assay may give artificially low results in patients with liver disease. Blood 10/15/2023 11:3 2 AM EDT 10/15/2023 1:19 PM EDT us Kate Penn MD LAB BLOOD ORDERABLES Final Resul t Performing Organization Address [facility] Co de Phone Number [facility] [address] [place] [phone] * Hepatitis C Antibody with Reflex to HCV, RNA, Quantitative, Real-Time PCR (10/15/2023 11:32 AM EDT) Hepatitis C Antibody Nonreactive Nonreactive [facility] Comment:Antibodies to HCV no t detected; does not exclude early acuteHCV infection. Blood Venous blood specimen / Unknown 10/15/2023 11:32 AM EDT 10/15/2023 1:19 PM EDT us Kate Penn MD LAB BLOOD ORDERABLES Final Resul t Performing Organization Address City/[facility]/ZIP Co de Phone Number [facility] [address] [place] [phone] * HIV-1/2 Antigen and Antibodies, Fourth Generation, with Reflexes (10/15/2023 11:32 AM EDT) HIV AB/AG Nonreactive Nonreactive [facility] Comment:HIV-1 p24 Ag and/or HIV-1/HIV-2 Ab not detected.A test result that is nonreactive does not exclude thepossibility of exposure to or infection with HIV-1 and/orHIV-2. Nonreactive results in this assay for individualswith prior exposure to HIV-1 and/or HIV-2 may be due toantigen and antibody levels that are below the limit ofdetection of this assay.The Paradial HIV Ag/Ab Combo assay result andsupplemental assay results should be interpreted inconjunction with the patient's clinical presentation,history and other laboratory results. If the results areinconsistent with clinical evidence, additional testing issuggested to confirm the result. Blood Venous blood specimen / Unknown 10/15/2023 11:32 AM EDT 10/15/2023 1:19 PM EDT us Kate Penn MD LAB BLOOD ORDERABLES Final Resul t [facility] [address] [place] [phone] * BI Mammogram Screening Tomosynthesis Bilateral (10/05/2023 9:00 AM EDT) Anatomical Region Laterality Modality Breast Bilateral Mammography 10/05/2023 9:00 AM EDT Narrative 11/01/2023 6:29 AM EDT ? [facility] ? [address] ?[place] [address] ? Mammography Report ? Signed ? Patient: Eagle Alexey,Jayna ?MR#: M ?? [id number] ? : 1975 ?Acct:[id number] ? Age/Sex: 48 / F ?ADM Date: 04/29/24 ? Loc: HO.MAMMO ? Attending Dr: Kate Penn MD ? Ordering Physician: Kate Penn MD ?Results: 1Negative ? Date of Service: 10/05/23 ?Follow Up: 1 Year From Orig ?? inal Mammogram ? Procedure(s): MM tomosynthesis screening BI ?? Accession Number(s): [id number] ? cc: Kate Penn MD ? EXAMINATION: ?? MM SCREENING DIGITAL BREAST TOMOSYNTHESIS, BILATERAL ? CLINICAL INFORMATION: ? Screening. Asymptomatic. ? COMPARISON: ?? Mammography: This study is compared with prior exams dating back to ?? 2017. ? TECHNIQUE: ?? Digital breast tomosynthesis is performed in both the craniocaudal and ?? mediolateral oblique views along with computer-aided detection (CAD). ?? Synthesized 2D images are generated from the tomosynthesis. ? FINDINGS: ?? There are scattered areas of fibroglandular density (ACR BI-RADS breast ?? composition Category b). ? There are no significant masses, abnormal calcifications, or other ?? abnormalities. ? MM/MM tomosynthesis screening BI ?? IMPRESSION: ?? No mammographic evidence of malignancy. ? ASSESSMENT: ? BI-RADS BI-RADS 1 - Negative ? RECOMMENDATION: ?? Routine annual mammography screening. ? 1 year F/U ? This examination should not preclude the clinical evaluation of a ?? suspicious palpable abnormality. ? This patient's information was entered into a reminder system with a ?? target due date for their next mammogram. ? Dictated By: ?Alvina Lara MD ? Signed By: ?<Electronically signed by Alvina Lara MD in OV> ? 11/01/23624 ? DD/ 0900 ? TD/TT: ? Fraternity Adviser: ? Procedure Note Donotuseinterpreter, Image - 11/01/2023 [facility] [address] [place] [address] Mammography Report Signed Patient: Elida Putnam DMR#: M [id number] : 1975Acct:[id number] Age/Sex: 48 / FADM Date: 10/05/23 Loc: MAMMO Attending Dr: Kate Penn MD Ordering Physician: Kate Penn MDResults: 1Negative Date of Service: 10/05/23Follow Up: 1 Year From Orig inal Mammogram Procedure(s): MM tomosynthesis screening BI Accession Number(s): [id number] cc: Kate Penn MD EXAMINATION: MM SCREENING DIGITAL BREAST TOMOSYNTHESIS, BILATERAL CLINICAL INFORMATION: Screening. Asymptomatic. COMPARISON: Mammography: This study is compared with prior exams dating back to 2018. TECHNIQUE: Digital breast tomosynthesis is performed in both the craniocaudal and mediolateral oblique views along with computer-aided detection (CAD). Synthesized 2D images are generated from the tomosynthesis. FINDINGS: There are scattered areas of fibroglandular density (ACR BI-RADS breast composition Category b). There are no significant masses, abnormal calcifications, or other abnormalities. MM/MM tomosynthesis screening BI IMPRESSION: No mammographic evidence of malignancy. ASSESSMENT: BI-RADS BI-RADS 1 - Negative RECOMMENDATION: Routine annual mammography screening. 1 year F/U This examination should not preclude the clinical evaluation of a suspicious palpable abnormality. This patient's information was entered into a reminder system with a target due date for their next mammogram. Dictated By: Alvina Lara MD Signed By: <Electronically signed by Alvina Lara MD in OV> 05/26/24 0625 DD/ 0900 TD/TT: Fraternity Adviser: us Kate Penn MD IMG BI PROCEDURES Final Result * HPV E6/E7 RFLX LEEANN 16 18/45 (06/24/2021 12:11 PM EST) HPV 16 RNA [facility] HPV 18/45 RNA [facility] HPV E6 E7 ADD [facility] HPV mRNA E6/E7 rflx Not Detected Not Detected [facility] Comment: Methodology: Tax Accounting Assistant-Mediated Amplification This assay detects E6/E7 viral messenger RNA (mRNA) from 14 high-risk HPV types (16,18,31,33,35,39,45,51,52,56,58,59,66,68). The analytical performance characteristics of this assay have been determined by [employer]. The modifications have not been cleared or approved by the FDA. This assay has been validated pursuant to the CLIA regulations and is used for clinical purposes. For additional information, please refer to http://education.Parkit Enterprise/faq/ZYH058g2 (This link if provided for information/ educational purposes only.) THIS TEST WAS PERFORMED AT: [employer] [address] [place] [address] FLO[address] [place], [place] ??[phone] ISIDRO AVILA MD 06/24/2021 12:1 1 PM EST us Rene Dumont MD HISTORICAL/NON ORDERABLE LABS Fi nal Result [facility] [address] from Last 3 Months or Most Recently Relevant to Health Maintenance Insurance [facility] [address] [place] [id number] [place] [id number] [place] [id number] Care Teams Cdl Bulk Driver Relationship Specialty Start Date End Date Kate Penn MD [address] [place] [phone] PCP - General Family Medicine 03/21/13
--- OUTSIDE RECORDS SUMMARY | 2024-09-06 13:50 | XMS_ITS | Encounter Summary ---
Author Organization [employer] Address [address] [place] [address] Care Team Providers Care District Sales Leader Name Role Phone Kate Penn MD Primary Care Provider [phone] Reason for Visit * Reason Onset Date Comments Med Refill 09/05/2024 Encounter Details Date Type Department Care Team (Late st Contact Info) Description 09/05/2024 Refill [facility] [address] [place], [place] [phone] Kate Penn MD [address] [place], [place] [phone] Social History Tobacco Use Types Packs/Day Years [...] Description 09/13/2024 9:30 AM EDT Clinical Support [facility] [address] [place] [phone] documented as of this encounter Visit Diagnoses Not on filedocumented in this encounter Additional Health Concerns Assessment Noted Time PHQ-9 Depression Total Score: 19 025 11:08 AM EDT documented as of this encounter Care Teams District Sales Leader Relationship Specialty Start Date End Date Kate Penn MD [address] [place] [phone] PCP - General Family Medicine 03/21/13 documented as of this encounter
--- OUTSIDE RECORDS SUMMARY | 2024-09-06 13:50 | XMS_ITS | Encounter Summary ---
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); Renal insufficiency; Syncope, unspecified syncope type; Elevated BP without diagnosis of hypertension Social History Tobacco Use Types Packs/Day Years [...] Description 09/13/2024 9:30 AM EDT Clinical Support [facility] [address] [place] [phone] Scheduled Orders Name Type Priority Associated Diagnoses Orde r Schedule Comprehensive Metabolic Panel Lab Routine Syncope, unspecified syncope type Elevated BP without diagnosis of hypertension Expected: 09/02/2024 (Approximate), Expires: 09/02/2025 Lactate Dehydrogenase (LD) Lab Routine Elevated anti-tissue transglutaminase (tTG) IgA level Renal insufficiency Syncope, unspecified syncope type Expected: 09/02/2024 (Approximate), Expires: 09/02/2025 Albumin, Random Urine W/Creatinine Lab Routine Elevated anti-tissue transglutaminase (tTG) IgA level Renal insufficiency Elevated BP without diagnosis of hypertension Expected: 09/02/2024 (Approximate), Expires: 09/02/2025 documented as of this encounter Procedures Procedure Name Priority Date/Time Associated Diagnosis Comments URINALYSIS, COMPLETE, WITH REFLEX TO CULTURE Routine 09/06/2024 11:22 AM EDT Renal insufficiency Elevated BP without diagnosis of hypertension documented in this encounter Results * (ABNORMAL) Urinalysis, Complete, with Reflex to Culture (09/06/2024 11:22 AM EDT) Color Urine Yellow [facility] Appearance Urine Clear [facility] PH 6.0 5.0 - 9.0 [facility] Glucose Urine UA Negative Negative mg/dL [facility] Urine Blood Small (1+)(A) Negative [facility] Specific [place] - Urine 1.015 1.005 - 1.025 [facility] Urine Protein Negative Neg-Trace mg/dL [facility] Urine Ketones Negative Negative mg/dL [facility] Nitrite Urine Negative Negative [facility] Leukocyte Esterase Urine Trace(A) Negative [facility] RBC Urine 0-2 0 - 2 /HPF [facility] Urine WBC 6-10 0 - 5 /HPF [facility] Urine Squamous Epithelial Cell 3-5 0 - 2 /HPF [facility] Urine Bacteria None Seen None Seen [facility] Hyaline Casts, Urine 0-2 0 - 2 /LPF [facility] Urine 09/06/2024 11:2 2 AM EDT 09/06/2024 1:02 PM EDT Narrative [facility] - 09/06/2024 1:32 PM EDT Urine, Clean Catch Kate Penn MD LAB URINE ORDERABLES Final Resul t Performing Organization Address City/State/[facility] Co de Phone Number [facility] [address] [place] [phone] documented in this encounter Visit Diagnoses Diagnosis Elevated anti-tissue transglutaminase (tTG) IgA level- Primary Renal insufficiency Unspecified disorder of kidney and ureter Syncope, unspecified syncope type Elevated BP without diagnosis of hypertension documented in this encounter Additional Health Concerns Assessment Noted Time PHQ-9 Depression Total Score: 19 025 11:08 AM EDT documented as of this encounter Care Teams Core Stripper Relationship Specialty Start Date End Date Kate Penn MD [address] [place] [phone] PCP - General Family Medicine 03/21/13 documented as of this encounter
--- OUTSIDE RECORDS SUMMARY | 2024-09-06 13:50 | XMS_ITS | Encounter Summary ---
Author Organization [employer] Address [address] [place] [address] Care Team Providers Care Supervisor Of Officials Name Role Phone Kate Penn MD Primary Care Provider [phone] Reason for Visit * Reason Comments Med Refill Encounter Details Date Type Department Care Team ([facility] st Contact Info) Description 09/04/2024 Refill [facility] MEDICINE [address] [place] [phone] Kate Penn MD [address] [place], [place] [phone] Social History Tobacco Use Types Packs/Day Years [...] Description 09/13/2024 9:30 AM EDT Clinical Support [facility] MEDICINE [address] [place] [address] documented as of this encounter Visit Diagnoses Not on filedocumented in this encounter Additional Health Concerns Assessment Noted Time PHQ-9 Depression Total Score: 19 025 11:08 AM EDT documented as of this encounter Care Teams Supervisor Of Officials Relationship Specialty Start Date End Date Kate Penn MD [address] [place] [phone] PCP - General Family Medicine 03/21/13 documented as of this encounter
[2024-09-06 14:03] LABS: Alanine Aminotransferase 29 U/L (0-31); Albumin Level 3.9 g/dL (3.5-5.0); Alkaline Phosphatase 63 U/L (39-117); Anion Gap 10 (12-20); Aspartate Amino Transferase 24 U/L (5-31); Bilirubin Total 0.3 mg/dL (0.0-1.0); Blood Urea Nitrogen 14 mg/dL (9-16); Calcium 9.4 mg/dL (8.4-10.2); Carbon Dioxide 27 mmol/L (22-29); Chloride 109 mmol/L (96-108); Estimated Glomerular Filt Rate 60; Glucose Random 103 mg/dL (60-115); Lactate Dehydrogenase 221 U/L (122-220); Sodium 142 mmol/L (135-145); Total Protein 7.5 g/dL (6.5-8.0)
[2024-09-06 14:06] LABS: Creatinine Urine 72.87 mg/dL; Microalbumin Urine < 5.0 mg/L
== END 2024-09-06 11:20 | disposition home or self-care (01) ==
LOC: HO.HHCL 11:19
PROVIDERS: Visit Provider Family Medicine
DX: R76.8 Other specified abnormal immunological findings in serum (principal); N28.9 Disorder of kidney and ureter, unspecified; R55 Syncope and collapse; R03.0 Elevated blood-pressure reading, without diagnosis of hypertension
CPT/HCPCS: 36415; 80053; 81001; 82043; 82570; 83615; 87086; 87088; 87186

== ENCOUNTER 2024-09-27 09:09 | Outpatient (AMB) | payer MEDICAID, SELFPAY ==
--- NOTE | 2024-09-27 09:12 | A.OFFVIS_ITS ---
Vital Signs 09/27/24 09:19 Height 5 ft 3 in Weight 170 lb BMI 30.1 BP 114/77 Blood Pressure Location Lt brachial Position Sitting Pulse 82 Pulse Oximetry (%) 97 Oxygen Flow Rate 97 Intake Visit Reasons: colonoscopy Intake Note: Patient complex follow up for 1st pre colonoscopy screening. /Faviola steiner 05/26/2023 for chronic constipation and Colonoscopy was order and no s/c. Patient cc: acid reflux, loose stool, poor appetite, and dizziness. Health Clinician Required: Yes Health Clinician Services: Health Clinician Present Health Clinician Name: [facility] Palak Jorge Accompanied by: Family/Other Allergies SEAFOOD Allergy (Unknown, Uncoded 02/14/23 12:30) HIVES Medication List - Last Reconciled 09/27/24 by Yodit Chang CNP acetaminophen (Tylenol) 650 mg (2 x 325 mg) PO Q6H PRN bisacodyl (Dulcolax (bisacodyl)) 15 mg (3 x 5 mg) PO ONCE 1 day cyclobenzaprine 5 mg PO TID famotidine 20 mg PO DAILY PRN ibuprofen 600 mg PO Q6H PRN levothyroxine (Synthroid) 100 mcg PO DAILY lidocaine 5% (Lidoderm) 1 patch topical DAILY omeprazole 20 mg PO DAILY polyethylene glycol 3350 (Miralax) 238 grams PO ONCE PRN 1 day HPI HPI colonoscopy: Details: Patient is a 49-year-old female with PMH of insomnia, migraines, asthma, former smoker and hypothyroidism. Last visit with LALA Lujan 05/26/2023 for index colonoscopy screening/chronic constipation. Pt is here today for index colonoscopy screening. Patient is accompanied by her . States she did not get a call for scheduling back in 2022. She reports acid reflux. She is taking omeprazole daily in the AM without food, waiting approx 2 hours before eating. States burning sensation to esophagus region occurs after eating trigger foods only. Associated symptoms:regurgitation, decreased appetite x 1 year, increase wt- attributes to less activity and thyroid d/o. Aggravating factors: sauces Alleviating attempts:omeprazole Patient denies: fever/chills, n/v, appetite changes, unintentional wt loss, ab pain or dysphasia She reports daily BMs, type 4 soft and formed. Shares constipation period approx 2 months ago-resolved spontaneously. Will occasionally consume smooth move tea. She denies melena/hematochezia. Consumes: 36oz of water/day, 1 cup of coffee/day, juice and soda 2x/week does consumes palacios most days minimal fruits/vegetables She was referred by PCP to see [facility] CARD[facility] for further evaluation of dizziness. Appt is scheduled with Dr. Glynn 10/27/24. Social hx: denies ETOH use marijuana 2x/week, denies other recreational drug use former smoker, cessation eight years. family hx -Sister, ovarian CA-remission denies personal hx of CA PFSH Medical History Insomnia Migraines Smoker Asthma Hypothyroidism Surgical History History of section Social History Household Members: Family Alcohol intake: never Patient Tobacco Use Status: Never used Tobacco Substance Use Type: Marijuana Current occupational status: unemployed Review of Systems Const Reports as per HPI ENT Reports as per HPI Card Reports as per HPI Resp Reports as per HPI GI Reports as per HPI Reports as per HPI Physical Exam Vital Signs: Last Vital Signs Pulse 82 09/27/24 09:19 BP 114/77 09/27/24 09:19 Pulse Ox 79 L 09/27/24 09:19 Oxygen Flow Rate 97 09/27/24 09:19 BMI result Body Mass Index 30.1 Const General: healthy appearing, no acute distress and well developed Nutritional Appearance: well nourished Orientation/consciousness: patient oriented x3 HEENT Head: Yes normal to inspection, Yes normocephalic and Yes atraumatic Face and sinus: Yes normal facial exam Eyes General: appearance normal, both eyes and all related structures Neck Neck: Yes normal visual inspection Resp Effort & Inspection: normal respiratory effort, able to speak in complete sentences, no tracheal deviation and symmetric chest movement Auscultation: clear to auscultation bilaterally Cardio Jugular venous distension: no JVD Rate: regular rate Rhythm: regular rhythm Heart sounds: S1 normal heart sound present, S2 normal heart sound present, no gallops and no murmurs GI Inspection: Yes normal to inspection, No distended and Yes obesity Palpation (GI): Soft to palpation, not firm, nontender and No hepatosplenomegaly present Auscultation: normal bowel sounds Neuro General: patient oriented x3 Gait exam (Neuro): Normal gait present Psych Appearance: grossly normal Mental Status: mental status grossly normal Speech and movement: Normal speech and movement present Affect: normal affect Attitude: cooperative Thought process: Normal thought process present Thought content: Normal thought content present Insight: Good insight present (Psych) Judgement: Good judgement present (Psych) Results Reviewed Results Reviewed: Laboratory Tests 08/29/24 11:56 WBC 8.7 RBC 4.71 Hgb 13.5 Hct 41.3 MCV 87.7 MCH 28.7 MCHC 32.7 RDW 14.6 Plt Count 284 MPV 11.1 Immature Gran % (Auto) 0.2 Neut % (Auto) 52.8 Lymph % (Auto) 35.6 Carbon % (Auto) 10.2 Eos % (Auto) 0.6 Baso % (Auto) 0.6 C-Reactive Protein 0.24 TSH 0.45 Assessment & Plan Assessment & Plan (1) Chronic constipation: Code(s): K59.09 - Other constipation Category: Medical Plan: Symptoms have appeared to resolve with intermittent episodes that resolved spontaneously. Reinforced lifestyle modifications to promote regularity: -higher fiber diet -adequate hydration with water -150 minutes of moderate intensity exercise per week (2) GERD (gastroesophageal reflux disease): Code(s): K21.9 - Gastro-esophageal reflux disease without esophagitis Category: Medical Qualifiers: Esophagitis presence: esophagitis presence not specified Qualified Code(s): K21.9 - Gastro-esophageal reflux disease without esophagitis Plan: Risk factors include obesity and lifestyle. Encouraged to continue omeprazole 20 mg daily as prescribed, taken approximately 30-60 minutes before first meal of the day. Will add Pepcid 20 mg daily as needed for breakthrough symptoms. Plan for EGD at same time of screening colonoscopy. Education on GERD prevention-Advised against heavy meals. Encouraged small frequent meals VS large meals, remaining upright after meals x 2-3 hours, avoid late night eating/spicy foods/caffeine/alcohol/known triggers and tight fitting clothes (3) Encounter for screening colonoscopy: Code(s): Z12.11 - Encounter for screening for malignant neoplasm of colon Category: Medical Plan: First screening colonoscopy. She understands she will need Cardiology clearance. Our office will attempt to connect with their team to request completion at time of her upcoming appointment. Reviewed prep and procedure expectations. Understands to hold NSAIDs for 7 days prior to procedure. Prep R x'd to preferred pharmacy. Plan Follow-up after EGD/colonoscopy Time: I spent a total of 45 minutes on the date of encounter which includes: Preparing to see the patient (reviewed previous documentation, test results and medical history) Performing a medically appropriate exam and/or evaluation Ordering medications, tests, and procedures Documenting clinical information in the health record Medications: New famotidine Take one tablet daily as needed for acid reflux 20 mg PO DAILY PRN 90 tabs 1RF GERD Changed From bisacodyl (Dulcolax (bisacodyl)) Day before procedure, prep day Take 4 tablets by mouth upon awakening followed by large glass of water 20 mg (4 x 5 mg) PO ONCE 1 day 4 tabs 0RF colonoscopy prep Z12.11 - Encounter for screening for malignant neoplasm of colon To bisacodyl (Dulcolax (bisacodyl)) Take 3 tablets by mouth at 12 noon day of prep 15 mg (3 x 5 mg) PO ONCE 1 day 3 tabs 0RF colonoscopy prep Z12.11 - Encounter for screening for malignant neoplasm of colon Refilled polyethylene glycol 3350 (Miralax) Take as directed by mouth the day before your procedure. 238 grams PO ONCE 1 day PRN 238 grams 0RF laxative effect Coding Level of Care Code Tele Est Pt Level 3 (37735) Diagnoses Chronic constipation K59.09 Gastroesophageal reflux disease, unspecified whether esophagitis present K21.9 Esophagitis presence: esophagitis presence not specified Encounter for screening colonoscopy Z12.11
[2024-09-27 09:19] VITALS: BP 114/77; PULSE 82; O2SAT 97; BMI 30.1
--- OUTSIDE RECORDS SUMMARY | 2024-09-27 09:45 | XMS_ITS | Encounter Summary ---
Author Organization [employer] Address [address] [place] [address] Care Team Providers Care Road Maker Name Role Phone Kate Penn MD Primary Care Provider [phone] Reason for Visit * Reason Onset Date Comments Med Refill 03/08/2024 Encounter Details Date Type Department Care Team (Late st Contact Info) Description 03/08/2024 Refill [facility] [address] [place], [place] [phone] Kate Penn MD [address] [place], [place] [phone] Social History Tobacco Use Types Packs/Day Years [...] as of this encounter Plan of Treatment Not on file documented as of this encounter Visit Diagnoses Not on filedocumented in this encounter Additional Health Concerns Assessment Noted Time PHQ-9 Depression Total Score: 11 024 11:55 AM EDT documented as of this encounter Care Teams Road Maker Relationship Specialty Start Date End Date Kate Penn MD [address] [place] [address] PCP - General Family Medicine 03/21/13 documented as of this encounter
--- OUTSIDE RECORDS SUMMARY | 2024-09-27 09:46 | XMS_ITS | Encounter Summary ---
Author Organization [employer] Address [address] [place] [address] Care Team Providers Care Manager Internet Name Role Phone Kate Penn MD Primary Care Provider [phone] Encounter Details Date Type Department Care Team ([facility] st Contact Info) Description 09/02/2024 Orders Only [facility] [address] [place], [place] [phone] Kate Penn MD [address] [place], [place] [phone] Elevated anti-tissue transglutaminase (tTG) IgA level (Primary [...] on file documented as of this encounter Procedures Procedure Name Priority Date/Time Associated Diagnosis Comments URINALYSIS, COMPLETE, WITH REFLEX TO CULTURE Routine 09/06/2024 11:22 AM EDT Renal insufficiency Elevated BP without diagnosis of hypertension ALBUMIN, RANDOM URINE W/CREATININE Routine 09/06/2024 11:22 AM EDT Elevated anti-tissue transglutaminase (tTG) IgA level Renal insufficiency Elevated BP without diagnosis of hypertension LD Routine 09/06/2024 11:22 AM EDT Elevated anti-tissue transglutaminase (tTG) IgA level Renal insufficiency Syncope, unspecified syncope type COMPREHENSIVE METABOLIC PANEL Routine 09/06/2024 11:22 AM EDT Syncope, unspecified syncope type Elevated BP without diagnosis of hypertension documented in this encounter Results * Albumin, Random Urine W/Creatinine (09/06/2024 11:22 AM EDT) Creatinine, Urine 72.87 mg/dL [facility] Microalbumin Urine <5.0 mg/L H [facility] Microalbum Creatinine Ratio Ur TNP <30 ug/mg cr [facility] Comment:Unable to calculate albumin/creatinine ratio due to lowmicroalbumin or creatinine result. Urine 09/06/2024 11:2 2 AM EDT 09/06/2024 1:02 PM EDT Kate Penn MD LAB URINE ORDERABLES Final Resul t [facility] [address] [place] [address] [phone] * (ABNORMAL) Urinalysis, Complete, with Reflex to Culture (09/06/2024 11:22 AM EDT) Color Urine Yellow [facility] Appearance Urine Clear [facility] PH 6.0 5.0 - 9.0 [facility] Glucose Urine UA Negative Negative mg/dL [facility] Urine Blood Small (1+)(A) Negative [facility] Specific [place] - Urine 1.015 1.005 - 1.025 [facility] Urine Protein Negative Neg-Trace mg/dL [facility] Urine Ketones Negative Negative mg/dL [facility] Nitrite Urine Negative Negative [facility] Leukocyte Esterase Urine Trace(A) Negative [facility] RBC Urine 0-2 0 - 2 /HPF [facility] Urine WBC 6-10 0 - 5 /HPF [facility] Urine Squamous Epithelial Cell 3-5 0 - 2 /HPF [facility] Urine Bacteria None Seen None Seen [facility] Hyaline Casts, Urine 0-2 0 - 2 /LPF [facility] Urine 09/06/2024 11:2 2 AM EDT 09/06/2024 1:02 PM EDT Narrative [facility] - 09/06/2024 1:32 PM EDT Urine, Clean Catch Kate Penn MD LAB URINE ORDERABLES Final Resul t Performing Organization Address City/[facility]/ZIP Co de Phone Number [facility] [address] [place] [phone] [phone] * (ABNORMAL) Lactate Dehydrogenase (LD) (09/06/2024 11:22 AM EDT) Lactate Dehydrogenase 221(H) 122 - 220 U/L [facility] Blood Venous blood specimen / Unknown 09/06/2024 11:22 AM EDT 09/06/2024 1:13 PM EDT us Kate Penn MD LAB BLOOD ORDERABLES Final Resul t Performing Organization Address [facility] Co de Phone Number [facility] [address] [place] [address] [phone] * (ABNORMAL) Comprehensive Metabolic Panel (09/06/2024 11:22 AM EDT) Sodium 142 135 - 145 mmol/L [facility] Potassium 4.0 3.3 - 5.1 mmol/L [facility] Chloride 109(H) 96 - 108 mmol/L [facility] Carbon Dioxide 27 22 - 29 mmol/L [facility] Anion Gap 10(L) 12 - 20 [facility] Urea Nitrogen (BUN) 14 9 - 16 mg/dL [facility] Creatinine, Serum 0.98 0.5 - 1.4 mg/dL [facility] Estimated Glomerular Filt Rate 60 [facility] Comment:Chronic Kidney Disea se: Estimated GFR < 60 mL/min/[id number] Kidney Disease: Estimated GFR < 15 mL/min/1.73m2 Glucose 103 60 - 115 mg/dL [facility] Calcium 9.4 8.4 - 10.2 mg/dL [facility] Bilirubin, Total 0.3 0.0 - 1.0 mg/dL [facility] Aspartate Amino Transferase 24 5 - 31 U/L [facility] Alanine Aminotransferase 29 0 - 31 U/L [facility] Total Protein 7.5 6.5 - 8.0 g/dL [facility] Albumin Level 3.9 3.5 - 5.0 g/dL [facility] Alkaline Phosphatase 63 39 - 117 U/L [facility] Blood Venous blood specimen / Unknown 09/06/2024 11:22 AM EDT 09/06/2024 1:13 PM EDT us Kate Penn MD LAB BLOOD ORDERABLES Final Resul t [facility] [address] [place] [phone] documented in this encounter Visit Diagnoses Diagnosis Elevated anti-tissue transglutaminase (tTG) IgA level- Primary Renal insufficiency Unspecified disorder of kidney and ureter Syncope, unspecified syncope type Elevated BP without diagnosis of hypertension documented in this encounter Additional Health Concerns Assessment Noted Time PHQ-9 Depression Total Score: 19 08/29/ 025 11:08 AM EDT documented as of this encounter Care Teams Manager Internet Relationship Specialty Start Date End Date Kate Penn MD [address] [place] [address] PCP - General Family Medicine 03/21/13 documented as of this encounter
--- OUTSIDE RECORDS SUMMARY | 2024-09-27 09:46 | XMS_ITS | Encounter Summary ---
Author Organization [employer] Address [address] [place] [address] Care Team Providers Care Certified Medical Technician Assistant Name Role Phone Kate Penn MD Primary Care Provider [phone] Reason for Visit * Reason Onset Date Comments Created in error 12/16/2023 Encounter Details Date Type Department Care Team ([facility] st Contact Info) Description 12/16/2023 Telephone [facility] [address] [place], [place] [phone] Kate Penn MD [address] [place], [place] [phone] Created in error Social History Tobacco Use [...] documented as of this encounter Care Teams Certified Medical Technician Assistant Relationship Specialty Start Date End Date Kate Penn MD [address] [place] [phone] PCP - General Family Medicine 03/21/13 documented as of this encounter
--- OUTSIDE RECORDS SUMMARY | 2024-09-27 09:46 | XMS_ITS | Encounter Summary ---
Author Organization [employer] Address [address] [place] [address] Care Team Providers Care Neurosurgical Nurse Name Role Phone Kate Penn MD Primary Care Provider [phone] Reason for Referral * Chiropractic (Routine) - Closed Specialty Diagnoses / Procedures Referred By Mariluz duval Referred To Contact Chiropractic Medicine Diagnoses Chronic low back pain, unspecified back pain laterality, unspecified whether sciatica present Kate Penn MD [address] [place] [phone] Phone: tel: fax: [facility] [address] [place] [address] Phone: tel: fax: Referral ID Status Reason Start Date Expiration Date V isits Requested Visits Authorized [id number] Closed Specialty Services Required 11/11/2023 11/10/2024 20 20 Encounter Details Date Type Department Care Team (Late st Contact Info) Description 11/06/2023 Orders Only [facility] [address] [place] [phone] Kate Penn MD [address] [place] [phone] Chronic low back pain, unspecified back pain [...] as of this encounter Plan of Treatment Scheduled Referrals Name Type Priority Associated Diagnoses [...] documented as of this encounter Care Teams Neurosurgical Nurse Relationship Specialty Start Date End Date Kate Penn MD [address] [place] [address] PCP - General Family Medicine 03/21/13 documented as of this encounter
--- OUTSIDE RECORDS SUMMARY | 2024-09-27 09:46 | XMS_ITS | Encounter Summary ---
Author Organization [employer] Address [address] [place] [address] Care Team Providers Care Snag Grinder Name Role Phone Kate Penn MD Primary Care Provider [phone] Encounter Details Date Type Department Care Team ([facility] st Contact Info) Description 06/05/2022 Orders Only [facility] [address] [place], [place] [phone] Kate Penn MD [address] [place], [place] [phone] Mild intermittent asthma without complication (Primary Dx) [...] Primary documented in this encounter Care Teams Snag Grinder Relationship Specialty Start Date End Date Kate Penn MD [address] [place], [place] [phone] PCP - General Family Medicine 03/21/13 documented as of this encounter
--- OUTSIDE RECORDS SUMMARY | 2024-09-27 09:46 | XMS_ITS | Clinical Summary ---
Author Organization [employer] Address [address] [place] [address] Care Team Providers Care Saturator Tender Name Role Phone Kate Penn MD Primary Care Provider [phone] Allergies No known active allergies Medications LORazepam [...] bed time. 10/11/19 21 Active sodium chloride (Deland) 0.65 % nasal spray Use intranasally to moisten nose and/or before & after blowing nose, as needed / LATVIAN LABEL 11/30/19 20 Active Witch Anali (Medicated [...] 90 capsule 1 03/07/20 24 2024 Discontinued nitrofurantoin, macrocrystal-mo nohydrate, (Macrobid) 100 MG capsule Take 1 capsule (100 mg) by mouth 2 times daily for 5 days. 10 capsule 09/08/19 25 2024 Active Problems Problem Noted Date Diagnosed Date [...] functioning normally -Pt has upcoming appointment with frozen food selector in October Assessment & Plan (07/21/2024 4:08 [...] and escitalopram - Current [facility] provider is MOLLY -Pt has labile mood possibly due to menopause -Continue current treatment plan -Pt requests HOSPICE TEAM LEAD service so that someone can stay with [...] and escitalopram - will check her current [facility] provider and treatment plan Assessment & Plan (04/17/2023 1:23 PM EST): - previously receiving lorazepam and escitalopram - will check her current [facility] provider and treatment plan Allergic rhinitis 09/21/2014 [...] Encounters Date Type Department Care Team Description 09/13/2024 9:30 AM EDT Clinical Support [address] [place] [address] Lena Orozco RN Hypotension, unspecified hypotension type 09/13/2024 Travel 09/07/2024 Orders Only [facility] [place] [place] [address] Kate Penn MD 09/06/2024 Orders Only [address] [place] [address] Kate Penn MD 09/05/20[address] [place] [address] Kate Penn MD Med Refill 09/04/2024 Refill [facility] [place] [address] Kate Penn MD 09/02/[address] [address] Kate Penn MD Results 09/02/2024 Orders Only [address] [place] [address] Kate Penn MD 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); Renal insufficiency; Syncope, unspecified syncope type; Elevated BP without diagnosis of hypertension 08/29/2024 11:00 AM EDT Office Visit [facility] [place] [address] Kate Penn MD Acquired hypothyroidism (Primary Dx); [...] whether sciatica present 08/29/2024 Travel 08/25/2024 Telephone [facility] [place] [address] Kate Penn MD chart prep 08/19/2024 Population Health Risk Score [facility] (C3) [address] [phone] Provider, Population Health Generic 07/21/2024 3:40 PM EST Office Visit [facility] [address] [place] [address] Selma Fuller MD Syncope, unspecified syncope type (Primary Dx); Hypotension, unspecified hypotension type; Maternal hypotension syndrome, antepartum 07/21/2024 Telephone [facility] [address] [place] [address] Kate Penn MD 07/19/2024 Telephone [facility] [address] [place], [place] [phone] Nila Friend MA chart prep from Last [...] Questionnaire-9 Score 08/29/2024 Patient Health Questionnaire-9 Score 08/29/2024 Last PHQ-9: Questionnaire Data Not on [...] Sign Reading Time Taken Comments Blood Pressure 112/74 09/13/2024 9:36 AM EDT Pulse 87 09/13/2024 9:36 AM EDT Temperature 36.4 ??C (97.5 ??F) 08/29/2024 11:02 AM E DT Respiratory Rate 18 09/13/2024 9:36 AM EDT Oxygen Saturation 98% 09/13/2024 9:36 AM EDT room air Inhaled Oxygen Concentration - - Weight 78 kg (172 lb) 08/29/2024 11:02 AM EDT Height 160 cm (5' 3 ) 08/29/2024 11:02 AM EDT Body Mass Index 30.47 08/29/2024 11:02 AM EDT Plan of Treatment Health Maintenance Due Date Last Done Comments CT Colonography 1975 Colonoscopy 1975 Colorectal Cancer Screening 1975 FIT DNA/Cologuard 1975 FIT 1975 FOBT 1975 Sigmoidoscopy 1975 Family Planning (PISQ) 1988 Pap Smear 1994 Zoster Vaccines (1 of 2) 2023 COVID-19 Vaccine ( season) 2024 Depression Monitoring 03/01/2025 08/29/2024, 025 Alcohol/Substance Use Screening 03/07/2025 03/07/2024 Depression Screening [...] Procedure Name Priority Date/Time Associated Diagnosis Comments ALBUMIN, RANDOM URINE W/CREATININE Routine 09/06/2024 11:22 AM EDT Elevated anti-tissue transglutaminase (tTG) IgA level Renal insufficiency Elevated BP without diagnosis of hypertension URINALYSIS, COMPLETE, WITH REFLEX TO CULTURE Routine 09/06/2024 11:22 AM EDT Renal insufficiency Elevated BP without diagnosis of hypertension LD Routine 09/06/2024 11:22 AM EDT Elevated anti-tissue transglutaminase (tTG) IgA level Renal insufficiency Syncope, unspecified syncope type COMPREHENSIVE METABOLIC PANEL Routine 09/06/2024 11:22 AM EDT Syncope, unspecified syncope type Elevated BP without diagnosis of hypertension CULTURE, URINE, ROUTINE Routine 09/06/2024 12:00 AM EDT HELICOBACTER PYLORI AG, EIA, STOOL Routine 08/30/2024 [...] (09/06/2024 11:22 AM EDT) Color Urine Yellow [facility] Appearance Urine Clear [facility] PH 6.0 5.0 - 9.0 [facility] Glucose Urine UA Negative Negative mg/dL [facility] Urine Blood Small (1+)(A) Negative [facility] Specific [place] - Urine 1.015 1.005 - 1.025 [facility] Urine Protein Negative Neg-Trace mg/dL [facility] Urine Ketones Negative Negative mg/dL [facility] Nitrite Urine Negative Negative [facility] Leukocyte Esterase Urine Trace(A) Negative [facility] RBC Urine 0-2 0 - 2 /HPF [facility] Urine WBC 6-10 0 - 5 /HPF [facility] Urine Squamous Epithelial Cell 3-5 0 - 2 /HPF [facility] Urine Bacteria None Seen None Seen [facility] Hyaline Casts, Urine 0-2 0 - 2 /LPF [facility] Urine 09/06/2024 11:2 2 AM EDT 09/06/2024 1:02 PM EDT Narrative [facility] - 09/06/2024 1:32 PM EDT Urine, Clean Catch us Kate Penn MD LAB URINE ORDERABLES Final Resul t Performing Organization Address City/[facility] Co de Phone Number [facility] [address] [place] [address] [phone] * Albumin, Random Urine W/Creatinine (09/06/2024 11:22 AM EDT) Creatinine, Urine 72.87 mg/dL [facility] Microalbumin Urine <5.0 mg/L [facility] Microalbum Creatinine Ratio Ur TNP <30 ug/mg cr [facility] Comment:Unable to calculate albumin/creatinine ratio due to lowmicroalbumin or creatinine result. Urine 09/06/2024 11:2 2 AM EDT 09/06/2024 1:02 PM EDT us Kate Penn MD LAB URINE ORDERABLES Final Resul t Performing Organization Address City/[facility]/ZIP Co de Phone Number [facility] [address] [place] [phone] * (ABNORMAL) Lactate Dehydrogenase (LD) (09/06/2024 11:22 AM EDT) Lactate Dehydrogenase 221(H) 122 - 220 U/L [facility] Blood Venous blood specimen / Unknown 09/06/2024 11:22 AM EDT 09/06/2024 1:13 PM EDT us Kate Penn MD LAB BLOOD ORDERABLES Final Resul t [facility] [address] [place] [address] [phone] * (ABNORMAL) Comprehensive Metabolic Panel (09/06/2024 11:22 AM EDT) Pathologist [facility] Sodium 142 135 - 145 mmol/L [facility] Potassium 4.0 3.3 - 5.1 mmol/L [facility] Chloride 109(H) 96 - 108 mmol/L [facility] Carbon Dioxide 27 22 - 29 mmol/L [facility] Anion Gap 10(L) 12 - 20 [facility] Urea Nitrogen (BUN) 14 9 - 16 mg/dL [facility] Creatinine, Serum 0.98 0.5 - 1.4 mg/dL [facility] Estimated Glomerular Filt Rate 60 [facility] Comment:Chronic Kidney Disea se: Estimated GFR < 60 mL/min/1.29b3Mfhxlk Kidney Disease: Estimated GFR < 15 mL/min/1.73m2 Glucose 103 60 - 115 mg/dL [facility] Calcium 9.4 8.4 - 10.2 mg/dL [facility] Bilirubin, Total 0.3 0.0 - 1.0 mg/dL [facility] Aspartate Amino Transferase 24 5 - 31 U/L [facility] Alanine Aminotransferase 29 0 - 31 U/L [facility] Total Protein 7.5 6.5 - 8.0 g/dL [facility] Albumin Level 3.9 3.5 - 5.0 g/dL [facility] Alkaline Phosphatase 63 39 - 117 U/L [facility] Blood Venous blood specimen / Unknown 09/06/2024 11:22 AM EDT 09/06/2024 1:13 PM EDT Kate Penn MD LAB BLOOD ORDERABLES Final Resul t Performing Organization Address [facility] Co de Phone Number [facility] [address] [place] [phone] * Culture, Urine, Routine (09/06/2024 12:00 AM EDT) Urine Urine specimen obtained by clean catch procedure / Unknown 09/06/2024 09/06/2024 Comment:[facility] Narrative [facility] - 09/08/2024 8:01 AM EDT Escherichia coli Quant 50,000 to 100,000 cfu/mL Escherichia coli: Ampicillin <=2(S) Escherichia coli: Cefazolin (Urine) <=1(S) Escherichia coli: Cefepime <=0.12(S) Escherichia coli: Ceftriaxone <=0.25(S) Escherichia coli: Ciprofloxacin <=0.06(S) Escherichia coli: Gentamicin <=1(S) Escherichia coli: Nitrofurantoin <=16(S) Escherichia coli: Trimethoprim/Sulfamethoxazole <=20(S) Specimen Source: Urine clean catch Kate Penn MD LAB MICROBIOLOGY - GENERAL ORDER CARLITO Final Result Performing Organization Address [facility] Co de Phone Number [facility] [address] [place] [phone] * Helicobacter pylori??Antigen, EIA, Stool (08/30/2024 8:45 AM EDT) H pylori Ag Stool SEE NOTE [facility] Comment:HELICOBACTER PYLORI AG, EIA, STOOL Micro Number: [id number] Test Status: Final Specimen Source: Stool Specimen Quality: Adequate H.pylori Ag: Not Detected Antimicrobials, proton pump inhibitors, and bismuth preparations inhibit H. pylori and ingestion up to two weeks prior to testing may cause false negative results. If clinically indicated the test should be repeated on a new specimen obtained two weeks after discontinuing treatment. Reference Range: Not DetectedTHIS TEST WAS PERFORMED AT:[employer] [place] [phone] AVILA MD Stool Rectal contents / Unknown 08/30/2024 8:45 AM EDT 08/30/2024 2:32 PM EDT us Kate Penn MD LAB BODY FLUIDS AND STOOLS ORDER CARLITO Final Result [facility] [address] [place] [phone] * Vitamin D, 25-Hydroxy, Total, Immunoassay (08/29/2024 11:56 AM EDT) Vitamin D 25-OH Total 55.1 >30 ng/mL [facility] Comment: Health Based Reference Values*< 20 ??ng/mL ??Xzceyjqqs69-98 ng/mL ??Insufficient> 30 ??ng/mL ??Sufficient*Mikala RYAN. N [...] ORDERABLES Final Resul t Performing Organization Address City/[facility]/ZIP Co de Phone Number [facility] [address] [place] [phone] * TSH with Reflex to Free T4 (08/29/2024 11:56 AM EDT) TSH reflex Free T4 0.45 0.32 - 4.0 uIU/mL [facility] Blood 08/29/2024 11:5 6 AM EDT 08/29/2024 1:16 PM EDT Kate Penn MD LAB BLOOD ORDERABLES Final Resul t Performing Organization Address [facility] Co de Phone Number [facility] [address] [place] [phone] * CBC auto differential (08/29/2024 11:56 AM EDT) White Blood Count 8.7 4.8 - 10.8 X10*3/uL [facility] Red Blood Count 4.71 4.20 - 5.50 X10*6/uL [facility] Hemoglobin 13.5 12.0 - 16.0 g/dl [facility] Hematocrit 41.3 37.0 - 47.0 % [facility] Mean Corpuscular Volume 87.7 80.0 - 98.0 fL [facility] Mean Corpuscular Hemoglobin 28.7 27.0 - 33.0 pg [facility] Mean Corpuscular HGB Conc 32.7 31.0 - 35.0 g/dl [facility] Red Cell Distribution Width 14.6 11.0 - 16.0 % [facility] Platelet Count 284 160 - 400 X10*3/uL [facility] Mean Platelet Volume 11.1 9.4 - 12.3 fL [facility] Neutrophils Percent Auto 52.8 45 - 73 % [facility] Imm Gran Pct Auto 0.2 0.0 - 0.4 % [facility] Lymphocytes Percent Auto 35.6 20 - 40 % [facility] Monocytes Percent Auto 10.2 2 - 11 % [facility] Eosinophils Percent Auto 0.6 0 - 4 % [facility] Basophils Percent Auto 0.6 0 - 2 % [facility] NRBC Pct Auto 0.0 0.0 - 0.2 /100WBC [facility] Neutrophils Absolute Auto 4.6 2.0 - 8.3 x10*3/uL [facility] Imm Gran Abs Auto 0.02 0.00 - 0.03 X10*3/uL [facility] Lymphocytes Absolute Auto 3.1 1.2 - 4.9 X10*3/uL [facility] Monocytes Absolute Auto 0.9 0.1 - 1.2 X10*3/uL [facility] Eosinophils Absolute Auto 0.1 0.0 - 0.4 X10*3/uL [facility] Basophils Absolute Auto 0.1 0.0 - 0.2 X10*3/uL [facility] NRBC Abs Auto 0.000 0.0 - 0.012 X10*3/uL [facility] Blood Venous blood specimen / Unknown 08/29/2024 11:56 AM EDT 08/29/2024 1:16 PM EDT us Kate Penn MD LAB BLOOD ORDERABLES Final Resul t [facility] [address] [place] [phone] [phone] * Cyclic Citrullinated Peptide (CCP) Antibody (IgG) (08/29/2024 11:56 AM EDT) Cyclic Citrullinated Peptide <16 UNITS [facility] Comment:Reference RangeNegat stefany: <20Weak Positive: 20-39Moderate Positive: 40-59Strong Positive: >59THIS TEST WAS PERFORMED AT:[employer] [place] [phone] AVILA MD Blood Venous blood specimen / Unknown 08/29/2024 11:56 AM EDT 08/29/2024 1:16 PM EDT Kate Penn MD LAB BLOOD ORDERABLES Final Resul t Performing Organization Address [facility] Co de Phone Number [facility] [address] [place] [address] [phone] * (ABNORMAL) Celiac Disease Comprehensive Panel (08/29/2024 11:56 AM EDT) Immunoglobulin A 646(A) 47 - 310 mg/dL [facility] Comment:THIS TEST WAS PERFOR MED AT:[employer] [place] [phone] AVILA MD Transglutaminase IgA <1.0 U/mL [facility] Comment:Value Interpretation ----- <15.0 Antibody not detected> or = 15.0 Antibody detected Interpretation SEE NOTE [facility] Comment:No serological evide nce of celiac disease.Total serum IgA is elevated. Consider mucosalinflammatory conditions or underlying gammopathy. Blood Venous blood specimen / Unknown 08/29/2024 11:56 AM EDT 08/29/2024 1:16 PM EDT Kate Penn MD LAB BLOOD ORDERABLES Final Resul t Performing Organization Address [facility] Co de Phone Number [facility] [address] [place] [address] [phone] * (ABNORMAL) Sed Rate by Modified Renatoergren (08/29/2024 11:56 AM EDT) Erythrocyte Sedimentation Rate 34(H) 0 - 20 MM/HR [facility] Comment:Patients with polycy themia and many hemoglobin abnormalitiesmay have depressed sed rates whereas patients with anemiamay have elevated sed rates. Blood Venous blood specimen / Unknown 08/29/2024 11:56 AM EDT 08/29/2024 1:16 PM EDT Kate Penn MD LAB BLOOD ORDERABLES Final Resul t Performing Organization Address [facility] Co de Phone Number [facility] [address] [place] [phone] * Rheumatoid Factor (08/29/2024 11:56 AM EDT) Rheumatoid Factor <13.0 <15.0 IU/mL [facility] Blood Venous blood specimen / Unknown 08/29/2024 11:56 AM EDT 08/29/2024 1:16 PM EDT Kate Penn MD LAB BLOOD ORDERABLES Final Resul t Performing Organization Address [facility] Co de Phone Number [facility] [address] [place] [phone] * C-reactive Protein (08/29/2024 11:56 AM EDT) C Reactive Protein 0.24 < or = 0.50 mg/dL [facility] Blood Venous blood specimen / Unknown 08/29/2024 11:56 AM EDT 08/29/2024 1:16 PM EDT Kate Penn MD LAB BLOOD ORDERABLES Final Resul t Performing Organization Address [facility] Co de Phone Number [facility] [address] [place] [phone] * REX Screen,IFA, with Reflex to Titer and Pattern (08/29/2024 11:56 AM EDT) Anti Nuclear Antibody Screen NEGATIVE NEGATIVE [facility] Comment:REX IFA is a first [...] clinicallysuspected inflammatory myopathies.AC-0: NegativeInternational Consensus on REX Patterns(https://doi.org/10.1515/nwdj-5877-2624)For additional information, please refer tohttp://education.Punchh/faq/OQQ484(This link is being provided for informational/educational purposes only.)THIS TEST WAS PERFORMED AT:[employer] [place] [phone] AVILA MD REX Titer TNP [facility] REX Pattern [facility] REX TITER 2 (REF LAB) [facility] REX Pattern 2 [facility] 3 [facility] REX PATTERN 3 [facility] Blood Venous blood specimen / Unknown 08/29/2024 11:56 AM EDT 08/29/2024 1:16 PM EDT us Kate Penn MD LAB BLOOD ORDERABLES Final Resul t [facility] [address] [place] [phone] * (ABNORMAL) Lipid Panel with Reflex to Direct LDL (10/15/2023 11:32 AM EDT) Triglycerides 126 <150 mg/dL [facility] Comment:Desirable Triglyceri de: less than 150 mg/dLBorderline High Triglyceride 150-199 mg/dLHigh Triglyceride: 200-499 mg/dLVery High Triglyceride: greater than or equal to 5OO mg/dL Cholesterol 177 <200 mg/dL [facility] Comment:Desirable Cholestero l: less than 200 mg/dLBorderline High Cholesterol: 200-239 mg/dLHigh Cholesterol: greater than 239 mg/dL LDL Cholesterol Calculated 101(H) <100 mg/dL [facility] Comment:Desirable LDL: less than 100 mg/dLNear Optimal/Above Optimal LDL: 110- 129 mg/dLBorderline High LDL: 130-159 mg/dLHigh LDL: 160-189 mg/dLVery High LDL: greater than or equal to 190 mg/dL HDL Cholesterol 51 >40 mg/dL [facility] Comment:Desirable HDL: great er than 40 mg/dL Note: This HDL assay may give artificially low results in patients with liver disease. Blood 10/15/2023 11:3 2 AM EDT 10/15/2023 1:19 PM EDT Kate Penn MD LAB BLOOD ORDERABLES Final Resul t Performing Organization Address [facility] Co de Phone Number [facility] [address] [place] [phone] * Hepatitis C Antibody with Reflex to HCV, RNA, Quantitative, Real-Time PCR (10/15/2023 11:32 AM EDT) Hepatitis C Antibody Nonreactive Nonreactive [facility] Comment:Antibodies to HCV no t detected; does not exclude early acuteHCV infection. Blood Venous blood specimen / Unknown 10/15/2023 11:32 AM EDT 10/15/2023 1:19 PM EDT us Kate Penn MD LAB BLOOD ORDERABLES Final Resul t Performing Organization Address [facility] Co de Phone Number [facility] [address] [place] [phone] * HIV-1/2 Antigen and Antibodies, Fourth Generation, with Reflexes (10/15/2023 11:32 AM EDT) HIV AB/AG Nonreactive Nonreactive [facility] Comment:HIV-1 p24 Ag and/or HIV-1/HIV-2 Ab not detected.A test result that is nonreactive does not exclude thepossibility of exposure to or infection with HIV-1 and/orHIV-2. Nonreactive results in this assay for individualswith prior exposure to HIV-1 and/or HIV-2 may be due toantigen and antibody levels that are below the limit ofdetection of this assay.The [employer] HIV Ag/Ab Combo assay result andsupplemental assay results should be interpreted inconjunction with the patient's clinical presentation,history and other laboratory results. If the results areinconsistent with clinical evidence, additional testing issuggested to confirm the result. Blood Venous blood specimen / Unknown 10/15/2023 11:32 AM EDT 10/15/2023 1:19 PM EDT us Kate Penn MD LAB BLOOD ORDERABLES Final Resul t [facility] [address] [place] [phone] * BI Mammogram Screening Tomosynthesis Bilateral (10/05/2023 9:00 AM EDT) Anatomical Region Laterality Modality Breast Bilateral Mammography 10/05/2023 9:00 AM EDT Narrative 11/01/2023 6:29 AM EDT ? [facility] [place] ? [address] ?[place] [address] ? Mammography Report ? Signed ? Patient: Fco Blackburn,Jayna ?MR#: M ?? [id number] ? : 1975 ?Acct:[id number] ? Age/Sex: 48 / F ?ADM Date: 04/29/24 ? Loc: HO.MAMMO ? Attending Dr: Kate Penn MD ? Ordering Physician: Kate Penn MD ?Results: 1Negative ? Date of Service: 10/05/23 ?Follow Up: 1 Year From Orig ?? inal Mammogram ? Procedure(s): MM tomosynthesis screening BI ?? Accession Number(s): [id number] ? cc: Kate Penn MD ? EXAMINATION: [...] MD in OV> ? 11/01/23624 ? DD/ 09 ? TD/TT: ? Size Roller Operator: ? Procedure Note Alondra Arambula - 11/01/2023 [facility] [address] [place] [address] Dr. [place]manus, [place] [address] Mammography Report Signed Patient: Elida Putnam DMR#: [id number] : 1975Acct:[id number] Age/Sex: 48 / FADM Date: 10/05/23 Loc: HO.MAMMO Attending Dr: Kate Penn MD Ordering Physician: Kate Penn MDResults: 1Negative Date of Service: 10/05/23Follow Up: 1 Year From Orig inal Mammogram Procedure(s): MM tomosynthesis screening BI Accession Number(s): [id number] cc: Kate Penn MD EXAMINATION: MM SCREENING [...] signed by Alvina Lara MD in OV> 11/01/23 0625 DD/ 0900 TD/TT: Size Roller Operator: us Kate Penn MD IMG BI PROCEDURES Final Result * HPV E6/E7 RFLX LEEANN 16 18/45 (06/24/2021 12:11 PM EST) HPV 16 RNA [facility] HPV 18/45 RNA [facility] HPV E6 E7 ADD [facility] HPV mRNA E6/E7 rflx Not Detected Not Detected [facility] Comment: Methodology: Forging Die Sinker-Mediated Amplification This assay detects E6/E7 viral messenger RNA (mRNA) from 14 high-risk HPV types (16,18,31,33,35,39,45,51,52,56,58,59,66,68). The analytical performance characteristics of this assay have been determined by [employer] The modifications have not been cleared or approved by the FDA. This assay has been validated pursuant to the CLIA regulations and is used for clinical purposes. For additional information, please refer to http://education.Plisten/faq/LBE271a7 (This link if provided for information/ educational purposes only.) THIS TEST WAS PERFORMED AT: [employer] [address] [place] [address] [address] [place], [place] ??[phone] ISIDRO AVILA MD 06/24/2021 12:1 1 PM EST Rene Dumont MD HISTORICAL/NON ORDERABLE LABS Fi nal Result [facility] [address] from Last 3 Months or Most Recently Relevant to Health Maintenance Insurance [facility] C3 Care Teams Saturator Tender Relationship Specialty Start Date End Date Kate Penn MD [address] [place] [phone] PCP - General Family Medicine 03/21/13
--- OUTSIDE RECORDS SUMMARY | 2024-09-27 09:46 | XMS_ITS | Encounter Summary ---
Author Organization [employer] Address [address] [facility] [address] [place] [address] Care Team Providers Care Assistance Representative Name Role Phone Kate Penn MD Primary Care Provider Encounter Details Date Type Department Care Team ([facility] st Contact Info) Description 10/15/2023 Orders Only [facility] [address] [place], [place] [phone] Kate Penn MD [address] [place], [place] [phone] Acquired hypothyroidism (Primary Dx) Social History Tobacco [...] (Free Thyroxine) 1.15 0.71 - 1.85 ng/dL [facility] Blood Venous blood specimen / Unknown 03/07/2024 1:05 PM EDT 03/07/2024 4:37 PM EDT us Kate Penn MD LAB BLOOD ORDERABLES Final Resul t [facility] [address] [place] [address] [phone] * TSH (03/07/2024 1:05 PM EDT) Thyroid Stimulating Hormone 0.75 0.32 - 4.0 uIU/mL [facility] Comment:TSH 3rd Generation ( [facility]) Blood Venous blood specimen / Unknown 03/07/2024 1:05 PM EDT 03/07/2024 4:37 PM EDT Kate Penn MD LAB BLOOD ORDERABLES Final Resul t [facility] [address] [place] [address] [phone] documented in this encounter Visit Diagnoses Diagnosis Acquired hypothyroidism- Primary Unspecified hypothyroidism documented in this encounter Additional Health Concerns Assessment Noted Time PHQ-9 Depression Total Score: 7 04/14/20 23 1:37 PM EST documented as of this encounter Care Teams Assistance Representative Relationship Specialty Start Date End Date Kate Penn MD [address] [place] [phone] PCP - General Family Medicine 03/21/13 documented as of this encounter
--- OUTSIDE RECORDS SUMMARY | 2024-09-27 09:46 | XMS_ITS | Encounter Summary ---
Author Organization [employer] Address [address] [facility] [address] [address] 7[address] [place] [address] Care Team Providers Care Line Fixer Name Role Phone Kate Penn MD Primary Care Provider [phone] Encounter Details Date Type Department Care Team ([facility] st Contact Info) Description 09/07/2024 Orders Only [facility] [address] [place] [address] Kate Penn MD [address] [place], [place] [phone] Social History Tobacco Use Types Packs/Day Years [...] documented as of this encounter Care Teams Line Fixer Relationship Specialty Start Date End Date Kate Penn MD [address] [place] [address] PCP - General Family Medicine 03/21/13 documented as of this encounter
--- OUTSIDE RECORDS SUMMARY | 2024-09-27 09:46 | XMS_ITS | Encounter Summary ---
Author Organization [employer] Address [address] [address] [place] [address] Care Team Providers Care Rotary Soil Stabilizer Name Role Phone Kate Penn MD Primary Care Provider [phone] Encounter Details Date Type Department Care Team ([facility] st Contact Info) Description 05/06/2023 Orders Only [facility] [address] [place], [place] [phone] Kate Penn MD [address] [place], [place] [phone] Chronic low back pain, unspecified back pain [...] documented as of this encounter Care Teams Rotary Soil Stabilizer Relationship Specialty Start Date End Date Kate Penn MD [address] [place] [address] PCP - General Family Medicine 03/21/13 documented as of this encounter
== END 2024-09-27 10:12 | disposition home or self-care (01) ==
LOC: HO.HGI 09:09
PROVIDERS: PCP Family Medicine; Visit Provider Nurse Practitioner Family
DX: K59.09 Other constipation (principal); K21.9 Gastro-esophageal reflux disease without esophagitis; Z12.11 Encounter for screening for malignant neoplasm of colon
CPT/HCPCS: 99213

== ENCOUNTER → 2024-09-27 09:09 | Outpatient (BNVA) | payer MEDICAID, SELFPAY | PROVIDERS: PCP Family Medicine; Visit Provider Nurse Practitioner Family | DX: Z12.11 Encounter for screening for malignant neoplasm of colon (principal); K59.09 Other constipation; K21.9 Gastro-esophageal reflux disease without esophagitis | CPT/HCPCS: 99213 ==

== ENCOUNTER 2024-10-27 09:01 | Outpatient (AMB) | payer MEDICAID, SELFPAY ==
[2024-10-27 09:03] VITALS: BP 126/74; PULSE 71; BMI 30.1
--- NOTE | 2024-10-27 09:03 | MHC.OFFVIS ---
Vital Signs 10/27/24 09:03 10/27/24 09:17 10/27/24 09:17 Height 5 ft 3 in Weight 169 lb 12.095 oz BMI 30.1 BP 126/74 121/77 129/81 Blood Pressure Location Lt brachial Lt brachial Lt brachial Position Supine Sitting Standing Pulse 71 75 88 Intake Visit Reasons: hypotension syncope/pre-op colonoscopy Intake Note: New patient with ekg c/o syncope and chest pain need pre-op colonscopy Storeroom Supervisor Required: Yes Storeroom Supervisor Services: Storeroom Supervisor Present Storeroom Supervisor Name: prasanth Allergies SEAFOOD Allergy (Unknown, Uncoded 02/14/23 12:30) HIVES HPI Comments Details: Thank you for referring Elida in cardiology consultation today, referred here for syncopal episodes. She presents here with her . History was obtained with help of blender snuff over the phone. There was some limitations due interpretation. Patient is a pleasant 49-year-old male with no significant prior cardiovascular history. Few months ago she was having episodes of lightheadedness. She also had few episodes of passing out. This episodes were described as sudden racing of her heart and then she will feel nauseous and warm and felt lightheaded and then she would lose consciousness. These episodes however happening in his sitting position while watching TV. The who had witnessed this episode says she turns pale and at 1 time she did get rigid. However loss of consciousness only for about few sec to 20 seconds and then she regained consciousness and she is fully alert. She has no seizure-like activity or no bowel bladder incontinence. She has never had these episodes in the past. There was no recent changes in his health. Since then she has increase her water intake as per her and the episodes have been mitigated although she is still gets lightheaded episodes. She has had no recent significant blood loss. She denies any exertional chest pain or shortness of breath. She denies any family history of premature sudden cardiac . She denies any significant caffeine or alcohol intake. [facility] Medical History Insomnia Migraines Smoker Asthma Hypothyroidism Surgical History History of section Social History Household Members: Family Alcohol intake: never Patient Tobacco Use Status: Never used Tobacco Substance Use Type: Marijuana Current occupational status: unemployed Review of Systems Const Denies chills, Denies daytime sleepiness, Denies fatigue, Denies fever(s), Denies frequent falls, Denies poor appetite, Denies snoring, Denies stops breathing during sleep, Denies weakness, Denies weight gain and Denies weight loss Eyes Denies loss of vision ENT Denies dizziness and Denies hearing loss Card Denies chest pain, Denies claudication, Denies leg edema, Denies lightheadedness, Denies palpitations, Denies dyspnea, Denies dyspnea on exertion and Denies orthopnea Resp Denies cough, Denies excessive phlegm production, Denies dyspnea, Denies dyspnea on exertion, Denies snoring and Denies wheezing GI Denies abdominal pain, Denies hematochezia, Denies change in bowel habits, Denies nausea and Denies vomiting Denies urinary frequency and Denies dysuria Musc Denies arthralgias, Denies muscle weakness, Denies numbness and Denies other (frequent falls) Skin/Breast Denies nail changes and Denies rash Neuro Denies Abnormal speech present, Denies dizziness, Denies frequent falls, Denies loss of vision, Denies memory loss, Denies numbness and Denies weakness Psych Denies depression and Denies memory loss Endo Denies fatigue and Denies palpitations Zen/Lymph Reports easy bruising and Reports other (anemia) Aller/Immun Denies wheezing Physical Exam Vital Signs: Last Vital Signs Pulse 88 10/27/24 09:17 BP 129/81 10/27/24 09:17 BMI result Body Mass Index 30.1 Const General: cooperative, comfortable, no acute distress, alert, awake and Physically active Nutritional Appearance: average body habitus Orientation/consciousness: patient oriented x3 Limitations: no limitations HEENT Head: Yes normocephalic and Yes atraumatic Neck Neck: Yes trachea midline, Yes supple and Yes no JVD Resp Effort & Inspection: normal respiratory effort Auscultation: clear to auscultation bilaterally Cardio Jugular venous distension: no JVD Palpation: normal PMI Rate: regular rate Rhythm: regular rhythm Heart sounds: S1 normal heart sound present, S2 normal heart sound present, no click, no gallops, no murmurs and no rubs GI Auscultation: normal bowel sounds Skin General skin exam: no rashes or lesions noted Neuro General: patient oriented x3 and no focal motor deficits Speech: No Abnormal speech present Extrem General: Yes no clubbing, cyanosis or edema Psych Appearance: grossly normal Office Procedures EKG Details: EKG shows normal sinus rhythm normal EKG with normal axis and normal intervals 91054-[id number], Complete Assessment & Plan Assessment & Plan (1) Syncope: Code(s): R55 - Syncope and collapse Category: Medical Plan: Patient with episode of syncope preceded by a clear or of fast heart rate, nausea, feeling warm and lightheadedness. This is highly suggestive of vasovagal syncope. Although other causes such as orthostatic syncope and/or cardiac arrhythmias can not be entirely ruled out. Although symptoms are atypical as this happens in his sitting position. This is very unusual. I would suggest patient to undergo head-up tilt-table test to assess for autonomic response as well as an echocardiogram to evaluate for structural abnormality and a event monitor to evaluate for cardiac arrhythmias. For now we discussed about mechanism of vasovagal syncope and intervention as simple as increasing her water and salt intake. Advised to monitor blood pressure at home. Advised to avoid stimulants. Non life-threatening nature of vasovagal syncope was discussed with her and her . This is discussed with help of blender snuff. Follow up in the clinic after above-mentioned test. Thank you for allowing me to partake in her care Orders: Orders CA echo transthoracic complete Today R55 - Syncope and collapse ECG Tilt Table Test Today R55 - Syncope and collapse ECG 30 day event monitor Today R55 - Syncope and collapse Coding Level of Care Code New Pt Level 4 (98833) Complex EM visit Add On G2211 Diagnoses Syncope R55 CPT Codes EKG - CPT: 02008-Kymxrymcfxlsjebik, Complete ([id number])
--- OUTSIDE RECORDS SUMMARY | 2024-10-27 09:16 | XMS_ITS | Encounter Summary ---
Author Organization [employer] Address [address] [facility] 7t [place] [address] Care Team Providers Care Deck Lid Fitter Name Role Phone Kate Penn MD Primary Care Provider [phone] Encounter Details Date Type Department Care Team ([facility] Contact Info) Description 10/15/2023 Orders Only [facility] [address] [place], [place] [phone] Kate Penn MD [address] [place], [place] [phone] Acquired hypothyroidism (Primary Dx) Social History Tobacco [...] Care Team (Late st Contact Info) Description 12/05/2024 1:00 PM EDT Office Visit [facility] [address] [place] [address] Kate Penn MD [address] [place] [address] documented as of this encounter Procedures Procedure Name Priority Date/Time Associated Diagnosis Comments TSH Routine 03/07/2024 1:05 PM EDT Acquired hypothyroidism T4, FREE Routine 03/07/2024 1:05 PM EDT Acquired hypothyroidism documented in this encounter Results * T4, Free (03/07/2024 1:05 PM EDT) Free T4 (Free Thyroxine) 1.15 0.71 - 1.85 ng/dL [facility] Blood Venous blood specimen / Unknown 03/07/2024 1:05 PM EDT 03/07/2024 4:37 PM EDT us Kate Penn MD LAB BLOOD ORDERABLES Final Resul t [facility] [address] [place] [phone] [phone] * TSH (03/07/2024 1:05 PM EDT) Thyroid Stimulating Hormone 0.75 0.32 - 4.0 uIU/mL [facility] Comment:TSH 3rd Generation ( [facility]) Blood Venous blood specimen / Unknown 03/07/2024 1:05 PM EDT 03/07/2024 4:37 PM EDT Kate Penn MD LAB BLOOD ORDERABLES Final Resul t [facility] [address] [place] [address] [phone] documented in this encounter Visit Diagnoses Diagnosis Acquired hypothyroidism- Primary Unspecified hypothyroidism documented in this encounter Additional Health Concerns Assessment Noted Time PHQ-9 Depression Total Score: 7 04/14/20 23 1:37 PM EST documented as of this encounter Care Teams Deck Lid Fitter Relationship Specialty Start Date End Date Kate Penn MD [address] [place] [phone] PCP - General Family Medicine 03/21/13 documented as of this encounter
--- OUTSIDE RECORDS SUMMARY | 2024-10-27 09:16 | XMS_ITS | Encounter Summary ---
Author Organization [employer] Address [address] [place] [address] Care Team Providers Care Dairy And Food Laboratory Assistant Name Role Phone Kate Penn MD Primary Care Provider [phone] Reason for Referral * Chiropractic (Routine) - Closed Specialty Diagnoses / Procedures Referred By Mariluz duval Referred To Contact Chiropractic Medicine Diagnoses Chronic low back pain, unspecified back pain laterality, unspecified whether sciatica present Kate Penn MD [address] [place] [phone] Phone: tel: fax: [facility] [address] [place] [address] Phone: tel: fax: Referral ID Status Reason Start Date Expiration Date V isits Requested Visits Authorized [id number] Closed Specialty Services Required 11/11/2023 11/10/2024 20 20 Encounter Details Date Type Department Care Team (Late st Contact Info) Description 11/06/[address] [facility] [address] [place] [phone] Kate Penn MD [address] [place] [address] [phone] Chronic low back pain, unspecified back pain [...] Description 12/05/2024 1:00 [address] EDT Office [address] [facility] [address] [place] [address] Kate Penn MD [address] [place], [place] [phone] Scheduled Referrals Name Type Priority Associated Diagnoses [...] documented as of this encounter Care Teams Dairy And Food Laboratory Assistant Relationship Specialty Start Date End Date Kate Penn MD [address] [place] [phone] PCP - General Family Medicine 03/21/13 documented as of this encounter
--- OUTSIDE RECORDS SUMMARY | 2024-10-27 09:16 | XMS_ITS | Encounter Summary ---
Author Organization [employer] Address [address] [address] Care Team Providers Care Tray Packer Name Role Phone Kate Penn MD Primary Care Provider Encounter Details Date Type Department Care Team ([facility] Contact Info) Description 06/05/2022 Orders Only [facility] MEDICINE [address] [place] [address] [phone] Kate Penn MD [address] [place] [address] [phone] Mild intermittent asthma without complication (Primary Dx) [...] Upcoming Encounters Date Type Department Care Team ([facility] Contact Info) Description 12/05/2024 1:00 PM EDT Office Visit [facility] [address] [place] [address] [phone] Kate Penn MD [address] [place] [address] [phone] documented as of this encounter Visit Diagnoses Diagnosis Mild intermittent asthma without complication- Primary documented in this encounter Care Teams Tray Packer Relationship Specialty Start Date End Date Kate Penn MD [address] [place] [address] PCP - General Family Medicine 03/21/13 documented as of this encounter
--- OUTSIDE RECORDS SUMMARY | 2024-10-27 09:16 | XMS_ITS | Encounter Summary ---
Author Organization [employer] Address [address] [facility] 7 [place] [address] Care Team Providers Care Long Term Care Phlebotomist Name Role Phone Kate Penn MD Primary Care Provider [phone] Encounter Details Date Type Department Care Team ([facility] Contact Info) Description 09/02/2024 Orders Only [facility] [address] [place] [address] Kate Penn MD [address] [place], [place] [phone] Elevated anti-tissue transglutaminase (tTG) IgA level (Primary [...] Description 12/05/2024 1:00 PM EDT Office Visit [facility] [address] [place] [address] Kate Penn MD [address] [place] [address] documented as of this encounter Procedures Procedure [...] 11:22 AM EDT) Creatinine, Urine 72.87 mg/dL [facility] Microalbumin Urine <5.0 mg/L [facility] Microalbum Creatinine Ratio Ur TNP <30 ug/mg cr [facility] Comment:Unable to calculate albumin/creatinine ratio due to lowmicroalbumin or creatinine result. Urine 09/06/2024 11:2 2 AM EDT 09/06/2024 1:02 PM EDT us Kate Penn MD LAB URINE ORDERABLES Final Resul t [facility] [address] [place] [phone] * (ABNORMAL) Urinalysis, Complete, with Reflex to Culture (09/06/2024 11:22 AM EDT) Color Urine Yellow [facility] Appearance Urine Clear [facility] PH 6.0 5.0 - 9.0 [facility] Glucose Urine UA Negative Negative mg/dL [facility] Urine Blood Small (1+)(A) Negative [facility] Specific [place] - Urine 1.015 1.005 - 1.025 [facility] Urine Protein Negative Neg-Trace mg/dL [facility] Urine Ketones Negative Negative mg/dL [facility] Nitrite Urine Negative Negative [facility] Leukocyte Esterase Urine Trace(A) Negative [facility] RBC Urine 0-2 0 - 2 /HPF [facility] Urine WBC 6-10 0 - 5 /HPF [facility] Urine Squamous Epithelial Cell 3-5 0 - 2 /HPF [facility] Urine Bacteria None Seen None Seen [facility] Hyaline Casts, Urine 0-2 0 - 2 /LPF [facility] Urine 09/06/2024 11:2 2 AM EDT 09/06/2024 1:02 PM EDT Narrative [facility] - 09/06/2024 1:32 PM EDT Urine, Clean Catch us Kate Penn MD LAB URINE ORDERABLES Final Resul t Performing Organization Address [facility] Co de Phone Number [facility] [address] [place] [address] [phone] * (ABNORMAL) Lactate Dehydrogenase (LD) (09/06/2024 11:22 AM EDT) Lactate Dehydrogenase 221(H) 122 - 220 U/L [facility] Blood Venous blood specimen / Unknown 09/06/2024 11:22 AM EDT 09/06/2024 1:13 PM EDT us Kate Penn MD LAB BLOOD ORDERABLES Final Resul t Performing Organization Address [facility] Co de Phone Number [facility] [address] [place] [address] [phone] * (ABNORMAL) Comprehensive Metabolic Panel (09/06/2024 11:22 AM EDT) Sodium 142 135 - 145 mmol/L [facility] Potassium 4.0 3.3 - 5.1 mmol/L [facility] Chloride 109(H) 96 - 108 mmol/L [facility] Carbon Dioxide 27 22 - 29 mmol/L [facility] Anion Gap 10(L) 12 - 20 [facility] Urea Nitrogen (BUN) 14 9 - 16 mg/dL [facility] Creatinine, Serum 0.98 0.5 - 1.4 mg/dL [facility] Estimated Glomerular Filt Rate 60 [facility] Comment:Chronic Kidney Disea se: Estimated GFR < 60 mL/min/1.41j4Dkysgt Kidney Disease: Estimated GFR < 15 mL/min/1.73m2 Glucose 103 60 - 115 mg/dL [facility] Calcium 9.4 8.4 - 10.2 mg/dL [facility] Bilirubin, Total 0.3 0.0 - 1.0 mg/dL [facility] Aspartate Amino Transferase 24 5 - 31 U/L [facility] Alanine Aminotransferase 29 0 - 31 U/L [facility] Total Protein 7.5 6.5 - 8.0 g/dL [facility] Albumin Level 3.9 3.5 - 5.0 g/dL [facility] Alkaline Phosphatase 63 39 - 117 U/L [facility] Blood Venous blood specimen / Unknown 09/06/2024 11:22 AM EDT 09/06/2024 1:13 PM EDT Kate Penn MD LAB BLOOD ORDERABLES Final Resul t Performing Organization Address City/State/[facility] Co de Phone Number [facility] [address] [place] [phone] documented in this encounter Visit Diagnoses Diagnosis Elevated anti-tissue transglutaminase (tTG) IgA level- Primary Renal insufficiency Unspecified disorder of kidney and ureter Syncope, unspecified syncope type Elevated BP without diagnosis of hypertension documented in this encounter Additional Health Concerns Assessment Noted Time PHQ-9 Depression Total Score: 19 08/29/2 025 11:08 AM EDT documented as of this encounter Care Teams Long Term Care Phlebotomist Relationship Specialty Start Date End Date Kate Penn MD [address] [place] [phone] PCP - General Family Medicine 03/21/13 documented as of this encounter
--- OUTSIDE RECORDS SUMMARY | 2024-10-27 09:16 | XMS_ITS | Encounter Summary ---
Author Organization [employer] Address [address] [facility] 7 [place] [address] Care Team Providers Care Thermometer Production Worker Name Role Phone Kate Penn MD Primary Care Provider [phone] Reason for Visit * Reason Onset Date Comments Med Refill 03/08/2024 Encounter Details Date Type Department Care Team (Late st Contact Info) Description 03/08/2024 Refill [facility] [address] [place] [address] Kate Penn MD [address] [place], [place] [phone] Social History Tobacco Use Types Packs/Day Years [...] Description 12/05/2024 1:00 PM EDT Office Visit [facility] [address] [place] [address] Kate Penn MD [address] [place] [address] documented as of this encounter Visit Diagnoses Not on filedocumented in this encounter Additional Health Concerns Assessment Noted Time PHQ-9 Depression Total Score: 11 024 11:55 AM EDT documented as of this encounter Care Teams Thermometer Production Worker Relationship Specialty Start Date End Date Kate Penn MD [address] [place] [phone] PCP - General Family Medicine 03/21/13 documented as of this encounter
--- OUTSIDE RECORDS SUMMARY | 2024-10-27 09:16 | XMS_ITS | Encounter Summary ---
Author Organization [employer] Address [address] [facility] 7 [place] [address] Care Team Providers Care Sorority Supervisor Name Role Phone Kate Penn MD Primary Care Provider [phone] Reason for Visit * Reason Onset Date Comments Created in error 12/16/2023 Encounter Details Date Type Department Care Team ([facility] st Contact Info) Description 12/16/2023 Telephone [facility] [address] [place], [place] [phone] Kate Penn MD [address] [place], [place] [phone] Created in error Social History Tobacco Use [...] Description 12/05/2024 1:00 PM EDT Office Visit [facility] [address] [place] [address] Kate Penn MD [address] [place] [address] documented as of this encounter Visit Diagnoses Not on filedocumented in this encounter Additional Health Concerns Assessment Noted Time PHQ-9 Depression Total Score: 7 04/14/20 23 1:37 PM EST documented as of this encounter Care Teams Sorority Supervisor Relationship Specialty Start Date End Date Ktae Penn MD [address] [place] [address] PCP - General Family Medicine 03/21/13 documented as of this encounter
--- OUTSIDE RECORDS SUMMARY | 2024-10-27 09:16 | XMS_ITS | Clinical Summary ---
Author Organization [employer] Address [address] [facility] [address] [place] [address] Care Team Providers Care Wiper Blender Name Role Phone Kate Penn MD Primary Care Provider [phone] Allergies No known active allergies Medications LORazepam [...] bed time. 10/11/19 21 Active sodium chloride ([place]) 0.65 % nasal spray Use intranasally to moisten nose and/or before & after blowing nose, as needed / [facility] 11/30/19 20 Active Witch Anali (Medicated [...] MEAL 90 capsule 1 09/06/19 25 Active levothyroxine (Synthroid, Levoxyl) 100 MCG tablet TAKE 1 TABLET BY MOUTH EVERY DAY 90 tablet 3 10/12/19 25 Active levothyroxine (Synthroid, Levoxyl) 100 MCG tablet Take 1 tablet (100 mcg) by mouth Once per day. 90 tablet 3 10/15/19 24 2024 Discontinued Active Problems Problem Noted [...] functioning normally -Pt has upcoming appointment with manager of planning in October Assessment & Plan (07/21/2024 4:08 [...] Currently receiving lorazepam and escitalopram - Current S provider is MOLLY -Pt has labile mood possibly due to menopause -Continue current treatment plan -Pt requests CASH MANAGEMENT COORDINATOR service so that someone can stay with [...] Encounters Date Type Department Care Team Description 10/13/2024 Telephone [facility] [address] [place] [address] Nila Friend MA Appointment Request 10/10/2024 Refill [facility] [address] [place] [address] Kate Penn MD 10/05/[address] [place] [address] Kate Penn MD november09/13/2024 9:30 AM EDT Clinical Support [facility] [place] [address] Lena Orozco RN Hypotension, unspecified hypotension type 09/13/2024 Travel 09/07/2024 Orders Only [address], [place] [address] Kate Penn MD 09/06/2024 Orders Only [address] [place] [address] Kate Penn MD 09/05/[address] [place] [address] Kate Penn MD Med Refill 09/04/[address] [place] [address] Kate Penn MD 09/02/2024 [address] [facility] [place] [facility] [place] [address] Kate Penn MD Results 09/02/2024 Orders Only [address] [place] [address] Kate Penn MD 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.] Description 12/05/2024 1:00 PM EDT Office Visit [facility] [address] [place] [address] Kate Penn MD [address] [place] [address] Health Maintenance Due Date Last Done Comments CT Colonography 1975 Colonoscopy 1975 Colorectal Cancer Screening 1975 FIT DNA/Cologuard 1975 FIT 1975 FOBT 1975 Sigmoidoscopy 1975 Disability Screening 1975 Family Planning (PISQ) 1988 Pap Smear 1994 Zoster Vaccines (1 of 2) 2023 COVID-19 Vaccine (2023- season) 2024 Alcohol/Substance Use Screening 03/07/2025 03/07/2024 Depression Screening [...] 05/09/2011, 08/12/2010, 10/12/2009 HIV Screening Completed 10/15/2023, 05/0 09/2020, 08/09/2019 Hepatitis C Screening Completed 10/15/2023 [...] patient's age to complete this topic Meningococcal B Vaccine Aged Out No l onger eligible based on patient's age to complete [...] (09/06/2024 11:22 AM EDT) Color Urine Yellow [facility] Appearance Urine Clear [facility] PH 6.0 5.0 - 9.0 [facility] Glucose Urine UA Negative Negative mg/dL [facility] Urine Blood Small (1+)(A) Negative [facility] Specific Romance - Urine 1.015 1.005 - 1.025 [facility] Urine Protein Negative Neg-Trace mg/dL [facility] Urine Ketones Negative Negative mg/dL [facility] Nitrite Urine Negative Negative [facility] Leukocyte Esterase Urine Trace(A) Negative [facility] RBC Urine 0-2 0 - 2 /HPF [facility] Urine WBC 6-10 0 - 5 /HPF [facility] Urine Squamous Epithelial Cell 3-5 0 - 2 /HPF [facility] Urine Bacteria None Seen None Seen [facility] Hyaline Casts, Urine 0-2 0 - 2 /LPF [facility] Urine 09/06/2024 11:2 2 AM EDT 09/06/2024 1:02 PM EDT Narrative [facility] - 09/06/2024 1:32 PM EDT Urine, Clean Catch us Kate Penn MD LAB URINE ORDERABLES Final Resul t Performing Organization Address City/[facility]/ZIP Co de Phone Number [facility] [address] [place] [phone] * Albumin, Random Urine W/Creatinine (09/06/2024 11:22 AM EDT) Creatinine, Urine 72.87 mg/dL [facility] Microalbumin Urine <5.0 mg/L [facility] Microalbum Creatinine Ratio Ur TNP <30 ug/mg cr [facility] Comment:Unable to calculate albumin/creatinine ratio due to lowmicroalbumin or creatinine result. Urine 09/06/2024 11:2 2 AM EDT 09/06/2024 1:02 PM EDT us Kate Penn MD LAB URINE ORDERABLES Final Resul t Performing Organization Address City/[facility]/ZIP Co de Phone Number [facility] [address] [place] [phone] * (ABNORMAL) Lactate Dehydrogenase (LD) (09/06/2024 11:22 AM EDT) Lactate Dehydrogenase 221(H) 122 - 220 U/L [facility] Blood Venous blood specimen / Unknown 09/06/2024 11:22 AM EDT 09/06/2024 1:13 PM EDT us Kate Penn MD LAB BLOOD ORDERABLES Final Resul t [facility] [address] [place] [phone] * (ABNORMAL) Comprehensive Metabolic Panel (09/06/2024 11:22 AM EDT) Pathologist [facility] Sodium 142 135 - 145 mmol/L [facility] Potassium 4.0 3.3 - 5.1 mmol/L [facility] Chloride 109(H) 96 - 108 mmol/L [facility] Carbon Dioxide 27 22 - 29 mmol/L [facility] Anion Gap 10(L) 12 - 20 [facility] Urea Nitrogen (BUN) 14 9 - 16 mg/dL [facility] Creatinine, Serum 0.98 0.5 - 1.4 mg/dL [facility] Estimated Glomerular Filt Rate 60 [facility] Comment:Chronic Kidney Disea se: Estimated GFR < 60 mL/min/1.27b2Nozeci Kidney Disease: Estimated GFR < 15 mL/min/1.73m2 Glucose 103 60 - 115 mg/dL [facility] Calcium 9.4 8.4 - 10.2 mg/dL [facility] Bilirubin, Total 0.3 0.0 - 1.0 mg/dL [facility] Aspartate Amino Transferase 24 5 - 31 U/L [facility] Alanine Aminotransferase 29 0 - 31 U/L [facility] Total Protein 7.5 6.5 - 8.0 g/dL [facility] Albumin Level 3.9 3.5 - 5.0 g/dL [facility] Alkaline Phosphatase 63 39 - 117 U/L [facility] Blood Venous blood specimen / Unknown 09/06/2024 11:22 AM EDT 09/06/2024 1:13 PM EDT Kate Penn MD LAB BLOOD ORDERABLES Final Resul t Performing Organization Address [facility] Co de Phone Number [facility] [address] [place] [phone] * Culture, Urine, Routine (09/06/2024 12:00 AM EDT) Urine Urine specimen obtained by clean catch procedure / Unknown 09/06/2024 09/06/2024 Comment:UACC Narrative [facility] - 09/08/2024 8:01 AM EDT [...] ORDER CARLITO Final Result Performing Organization Address [facility] de Phone Number [facility] [address] [place] [phone] * Helicobacter pylori??Antigen, EIA, Stool (08/30/2024 8:45 AM EDT) H pylori Ag Stool SEE NOTE [facility] Comment:HELICOBACTER PYLORI AG, EIA, STOOL Micro Number: [id number] Test Status: Final Specimen Source: Stool Specimen Quality: Adequate H.pylori Ag: Not Detected Antimicrobials, proton pump inhibitors, and bismuth preparations inhibit H. pylori and ingestion up to two weeks prior to testing may cause false negative results. If clinically indicated the test should be repeated on a new specimen obtained two weeks after discontinuing treatment. Reference Range: Not DetectedTHIS TEST WAS PERFORMED AT:[employer] [place] [phone] AVILA MD Stool Rectal contents / Unknown 08/30/2024 8:45 AM EDT 08/30/2024 2:32 PM EDT us Kate Penn MD LAB BODY FLUIDS AND STOOLS ORDER CARLITO Final Result [facility] [address] [place] [phone] * Vitamin D, 25-Hydroxy, Total, Immunoassay (08/29/2024 11:56 AM EDT) Vitamin D 25-OH Total 55.1 >30 ng/mL [facility] Comment: Health Based Reference Values*< 20 ??ng/mL ??Xzsvnnsdb46-45 ng/mL ??Insufficient> 30 ??ng/mL ??Sufficient*Mikala RYAN. N [...] ORDERABLES Final Resul t Performing Organization Address City/[facility]/ZIP Co de Phone Number [facility] [address] [place] [phone] * TSH with Reflex to Free T4 (08/29/2024 11:56 AM EDT) TSH reflex Free T4 0.45 0.32 - 4.0 uIU/mL [facility] Blood 08/29/2024 11:5 6 AM EDT 08/29/2024 1:16 PM EDT Kate Penn MD LAB BLOOD ORDERABLES Final Resul t Performing Organization Address [facility] Co de Phone Number [facility] [address] [place] [phone] * CBC auto differential (08/29/2024 11:56 AM EDT) White Blood Count 8.7 4.8 - 10.8 X10*3/uL [facility] Red Blood Count 4.71 4.20 - 5.50 X10*6/uL [facility] Hemoglobin 13.5 12.0 - 16.0 g/dl [facility] Hematocrit 41.3 37.0 - 47.0 % [facility] Mean Corpuscular Volume 87.7 80.0 - 98.0 fL [facility] Mean Corpuscular Hemoglobin 28.7 27.0 - 33.0 pg [facility] Mean Corpuscular HGB Conc 32.7 31.0 - 35.0 g/dl [facility] Red Cell Distribution Width 14.6 11.0 - 16.0 % [facility] Platelet Count 284 160 - 400 X10*3/uL [facility] Mean Platelet Volume 11.1 9.4 - 12.3 fL [facility] Neutrophils Percent Auto 52.8 45 - 73 % [facility] Imm Gran Pct Auto 0.2 0.0 - 0.4 % [facility] Lymphocytes Percent Auto 35.6 20 - 40 % [facility] Monocytes Percent Auto 10.2 2 - 11 % [facility] Eosinophils Percent Auto 0.6 0 - 4 % [facility] Basophils Percent Auto 0.6 0 - 2 % [facility] NRBC Pct Auto 0.0 0.0 - 0.2 /100WBC [facility] Neutrophils Absolute Auto 4.6 2.0 - 8.3 x10*3/uL [facility] Imm Gran Abs Auto 0.02 0.00 - 0.03 X10*3/uL [facility] Lymphocytes Absolute Auto 3.1 1.2 - 4.9 X10*3/uL [facility] Monocytes Absolute Auto 0.9 0.1 - 1.2 X10*3/uL [facility] Eosinophils Absolute Auto 0.1 0.0 - 0.4 X10*3/uL [facility] Basophils Absolute Auto 0.1 0.0 - 0.2 X10*3/uL [facility] NRBC Abs Auto 0.000 0.0 - 0.012 X10*3/uL [facility] Blood Venous blood specimen / Unknown 08/29/2024 11:56 AM EDT 08/29/2024 1:16 PM EDT us Kate Penn MD LAB BLOOD ORDERABLES Final Resul t [facility] [address] [place] [phone] * Cyclic Citrullinated Peptide (CCP) Antibody (IgG) (08/29/2024 11:56 AM EDT) Cyclic Citrullinated Peptide <16 UNITS [facility] Comment:Reference RangeNegat stefany: <20Weak Positive: 20-39Moderate Positive: 40-59Strong Positive: >59THIS TEST WAS PERFORMED AT:[employer] [place] [phone] AVILA MD Blood Venous blood specimen / Unknown 08/29/2024 11:56 AM EDT 08/29/2024 1:16 PM EDT Kate Penn MD LAB BLOOD ORDERABLES Final Resul t Performing Organization Address [facility] Co de Phone Number [facility] [address] [place] [phone] * (ABNORMAL) Celiac Disease Comprehensive Panel (08/29/2024 11:56 AM EDT) Immunoglobulin A 646(A) 47 - 310 mg/dL [facility] Comment:THIS TEST WAS PERFOR MED AT:[employer] [place] [phone] AVILA MD Transglutaminase IgA <1.0 U/mL [facility] Comment:Value Interpretation ----- <15.0 Antibody not detected> or = 15.0 Antibody detected Interpretation SEE NOTE [facility] Comment:No serological evide nce of celiac disease.Total serum IgA is elevated. Consider mucosalinflammatory conditions or underlying gammopathy. Blood Venous blood specimen / Unknown 08/29/2024 11:56 AM EDT 08/29/2024 1:16 PM EDT Kate Penn MD LAB BLOOD ORDERABLES Final Resul t Performing Organization Address [facility] Co de Phone Number [facility] [address] [place] [phone] * (ABNORMAL) Sed Rate by Modified Vladren (08/29/2024 11:56 AM EDT) Erythrocyte Sedimentation Rate 34(H) 0 - 20 MM/HR [facility] Comment:Patients with polycy themia and many hemoglobin abnormalitiesmay have depressed sed rates whereas patients with anemiamay have elevated sed rates. Blood Venous blood specimen / Unknown 08/29/2024 11:56 AM EDT 08/29/2024 1:16 PM EDT Kate Penn MD LAB BLOOD ORDERABLES Final Resul t Performing Organization Address [facility]/ZIP Co de Phone Number [facility] [address] [place] [phone] * Rheumatoid Factor (08/29/2024 11:56 AM EDT) Rheumatoid Factor <13.0 <15.0 IU/mL [facility] Blood Venous blood specimen / Unknown 08/29/2024 11:56 AM EDT 08/29/2024 1:16 PM EDT Kate Penn MD LAB BLOOD ORDERABLES Final Resul t Performing Organization Address [facility] Co de Phone Number [facility] [address] [place] [phone] * C-reactive Protein (08/29/2024 11:56 AM EDT) Pathologist [facility] C Reactive Protein 0.24 < or = 0.50 mg/dL [facility] Blood Venous blood specimen / Unknown 08/29/2024 11:56 AM EDT 08/29/2024 1:16 PM EDT Kate Penn MD LAB BLOOD ORDERABLES Final Resul t Performing Organization Address [facility] Co de Phone Number [facility] [address] [place] [phone] * REX Screen,IFA, with Reflex to Titer and Pattern (08/29/2024 11:56 AM EDT) Anti Nuclear Antibody Screen NEGATIVE NEGATIVE [facility] Comment:REX IFA is a first [...] clinicallysuspected inflammatory myopathies.AC-0: NegativeInternational Consensus on REX Patterns(https://doi.org/10.1515/ltbe-1615-9145)For additional information, please refer tohttp://education.Asseta/faq/PRB619(This link is being provided for informational/educational purposes only.)THIS TEST WAS PERFORMED AT:[employer] [place] [phone] AVILA MD REX Titer [facility] REX Pattern [facility] REX TITER 2 (REF LAB) [facility] REX Pattern 2 [facility] REX TITER 3 [facility] REX PATTERN 3 [facility] Blood Venous blood specimen / Unknown 08/29/2024 11:56 AM EDT 08/29/2024 1:16 PM EDT us Kate Penn MD LAB BLOOD ORDERABLES Final Resul t [facility] [address] [place] [phone] * (ABNORMAL) Lipid Panel with Reflex to Direct LDL (10/15/2023 11:32 AM EDT) Triglycerides 126 <150 mg/dL [facility] Comment:Desirable Triglyceri de: less than 150 mg/dLBorderline High Triglyceride 150-199 mg/dLHigh Triglyceride: 200-499 mg/dLVery High Triglyceride: greater than or equal to 5OO mg/dL Cholesterol 177 <200 mg/dL [facility] Comment:Desirable Cholestero l: less than 200 mg/dLBorderline High Cholesterol: 200-239 mg/dLHigh Cholesterol: greater than 239 mg/dL LDL Cholesterol Calculated 101(H) <100 mg/dL [facility] Comment:Desirable LDL: less than 100 mg/dLNear Optimal/Above Optimal LDL: 110- 129 mg/dLBorderline High LDL: 130-159 mg/dLHigh LDL: 160-189 mg/dLVery High LDL: greater than or equal to 190 mg/dL HDL Cholesterol 51 >40 mg/dL [facility] Comment:Desirable HDL: great er than 40 mg/dL Note: This HDL assay may give artificially low results in patients with liver disease. Blood 10/15/2023 11:3 2 AM EDT 10/15/2023 1:19 PM EDT Kate Penn MD LAB BLOOD ORDERABLES Final Resul t Performing Organization Address [facility] Co de Phone Number [facility] [address] [place] [phone] * Hepatitis C Antibody with Reflex to HCV, RNA, Quantitative, Real-Time PCR (10/15/2023 11:32 AM EDT) Hepatitis C Antibody Nonreactive Nonreactive [facility] Comment:Antibodies to HCV no t detected; does not exclude early acuteHCV infection. Blood Venous blood specimen / Unknown 10/15/2023 11:32 AM EDT 10/15/2023 1:19 PM EDT Kate Penn MD LAB BLOOD ORDERABLES Final Resul t Performing Organization Address [facility] Co de Phone Number [facility] [address] [place] [phone] * HIV-1/2 Antigen and Antibodies, Fourth Generation, with Reflexes (10/15/2023 11:32 AM EDT) HIV AB/AG Nonreactive Nonreactive [facility] Comment:HIV-1 p24 Ag and/or HIV-1/HIV-2 Ab not detected.A test result that is nonreactive does not exclude thepossibility of exposure to or infection with HIV-1 and/orHIV-2. Nonreactive results in this assay for individualswith prior exposure to HIV-1 and/or HIV-2 may be due toantigen and antibody levels that are below the limit ofdetection of this assay.The [employer] HIV Ag/Ab Combo assay result andsupplemental assay results should be interpreted inconjunction with the patient's clinical presentation,history and other laboratory results. If the results areinconsistent with clinical evidence, additional testing issuggested to confirm the result. Blood Venous blood specimen / Unknown 10/15/2023 11:32 AM EDT 10/15/2023 1:19 PM EDT us Kate Penn MD LAB BLOOD ORDERABLES Final Resul t Performing Organization Address City/State/[facility] Co de Phone Number [facility] [address] [place] [phone] * BI Mammogram Screening Tomosynthesis Bilateral (10/05/2023 9:00 AM EDT) Anatomical Region Laterality Modality Breast Bilateral Mammography 10/05/2023 9:00 AM EDT Narrative 11/01/2023 6:29 AM EDT ? [facility] ? [address] ?[place] [address] ? Mammography Report ? Signed ? Patient: Fco Blackburn,Jayna ?MR#: M ?? [id number] ? : 1975 ?Acct:[id number] ? Age/Sex: 48 / F ?ADM Date: 04/29/24 ? Loc: HO.MAMMO ? Attending Dr: Kate Penn MD ? Ordering Physician: Kate Penn MD ?Results: 1Negative ? Date of Service: 10/05/23 ?Follow Up: 1 Year From Orig ?? inal Mammogram ? Procedure(s): MM tomosynthesis screening BI ?? Accession Number(s): [id number] ? cc: Kate Penn MD ? EXAMINATION: [...] 11/01/23624 ? DD/ 09 ? TD/TT: ? Card Folder: ? Procedure Note Ralf, Alondra - 11/01/2023 [facility] [address] [place] [address] [place] [address] Mammography Report Signed Patient: Elida Putnam DMR#: M [id number] : 1975Acct:[id number] Age/Sex: 48 / FADM Date: 10/05/23 Loc: HO.MAMMO Attending Dr: Kate Penn MD Ordering Physician: Kate Penn MDResults: 1Negative Date of Service: 10/05/23Follow Up: 1 Year From Orig inal Mammogram Procedure(s): MM tomosynthesis screening BI Accession Number(s): [id number] cc: Kate Penn MD EXAMINATION: MM SCREENING [...] in OV> 11/01/23 0625 DD/ 0900 TD/TT: Card Folder: us Kate Penn MD IMG BI PROCEDURES Final Result * HPV E6/E7 RFLX LEEANN 16 18/45 (06/24/2021 12:11 PM EST) HPV 16 RNA [facility]NP [facility] HPV 18/45 RNA TNP [facility] HPV E6 E7 ADD TNP [facility] HPV mRNA E6/E7 rflx Not Detected Not Detected [facility] Comment: Methodology: Business Development Intern-Mediated Amplification This assay detects E6/E7 viral messenger RNA (mRNA) from 14 high-risk HPV types (16,18,31,33,35,39,45,51,52,56,58,59,66,68). The analytical performance characteristics of this assay have been determined by [employer]. The modifications have not been cleared or approved by the FDA. This assay has been validated pursuant to the CLIA regulations and is used for clinical purposes. For additional information, please refer to http://education.TaCerto.com/faq/HKG059r1 (This link if provided for information/ educational purposes only.) THIS TEST WAS PERFORMED AT: [employer] [address] [place] [address],[address] [place], [place] ??[phone] ISIDRO AVILA MD 06/24/2021 12:1 1 PM EST us Rene Dumont MD HISTORICAL/NON ORDERABLE LABS Fi nal Result [facility] [address] from Last 3 Months or Most Recently Relevant to Health Maintenance Insurance [facility] C3 Care Teams Wiper Blender Relationship Specialty Start Date End Date Kate Penn MD [address] [place] [phone] PCP - General Family Medicine 03/21/13
--- OUTSIDE RECORDS SUMMARY | 2024-10-27 09:16 | XMS_ITS | Encounter Summary ---
Author Organization [employer] Address [address] [facility] [address] [place] [address] Care Team Providers Care Mushroom Picker Name Role Phone Kate Penn MD Primary Care Provider [phone] Encounter Details Date Type Department Care Team ([facility] st Contact Info) Description 05/06/2023 Orders Only [facility] [address], [place] [phone] Kate Penn MD [address] [place], [place] [phone] Chronic low back pain, unspecified back pain [...] Description 12/05/2024 1:00 PM EDT Office Visit [facility] [address] [place] [phone] Kate Penn MD [address] [place] [address] documented as of this encounter Visit Diagnoses Diagnosis Chronic low back pain, unspecified back pain laterality, unspecified whether sciatica present- Primary documented in this encounter Additional Health Concerns Assessment Noted Time PHQ-9 Depression Total Score: 7 04/14/20 23 1:37 PM EST documented as of this encounter Care Teams Mushroom Picker Relationship Specialty Start Date End Date Kate Penn MD [address] [place] [phone] PCP - General Family Medicine 03/21/13 documented as of this encounter
--- OUTSIDE RECORDS SUMMARY | 2024-10-27 09:16 | XMS_ITS | Encounter Summary ---
Author Organization [employer] Address [address] [facility] 7t [place] [address] Care Team Providers Care Film And Video Graphics Designer Name Role Phone Kate Penn MD Primary Care Provider Encounter Details Date Type Department Care Team ([facility] Contact Info) Description 09/07/2024 Orders Only [facility] MEDICINE [address] [place] [address] Kate Penn MD [address] [place] [address] Social History Tobacco Use Types Packs/Day Years [...] Description 12/05/2024 1:00 PM EDT Office Visit [facility] MEDICINE [address] [place] [address] Kate Penn MD [address] [place] [phone] documented as of this encounter Visit Diagnoses Not on filedocumented in this encounter Additional Health Concerns Assessment Noted Time PHQ-9 Depression Total Score: 19 025 11:08 AM EDT documented as of this encounter Care Teams Film And Video Graphics Designer Relationship Specialty Start Date End Date Kate Penn MD [address] [place] [phone] PCP - General Family Medicine 03/21/13 documented as of this encounter
[2024-10-27 09:17] VITALS: BP 121/77; BP 129/81; PULSE 75; PULSE 88
== END 2024-10-27 09:47 | disposition home or self-care (01) ==
LOC: HO.HCS 09:02
PROVIDERS: PCP Family Medicine; Visit Provider Internal Medicine Cardiovascular Disease
DX: R55 Syncope and collapse (principal)
CPT/HCPCS: 93010; 99204

== ENCOUNTER → 2024-10-27 09:01 | Outpatient (BNVA) | payer MEDICAID, SELFPAY | PROVIDERS: PCP Family Medicine; Visit Provider Internal Medicine Cardiovascular Disease | DX: R55 Syncope and collapse (principal) | CPT/HCPCS: 93005; 99202 ==

== ENCOUNTER → 2024-12-07 07:56 | Outpatient (REF) | payer MEDICAID, SELFPAY ==
--- OUTSIDE RECORDS SUMMARY | 2024-12-07 07:58 | XMS_ITS | Clinical Summary ---
Author Organization [facility] Address [address] [place] [address] Phone Care Team Providers Care Milliner Helper Name Role Phone Unavailable Primary Care Provider Unavailabl e Social History Tobacco Use Types Packs/Day Years Used Date Smoking Tobacco: Never Assessed Comments Unknown Sex and Gender Information Value Date Recorded Sex Assigned at Not on file Legal Sex Female 1:29 PM EDT Gender Identity Not on file Sexual Orientation Not on file Plan of Treatment Upcoming Encounters Date Type Department Care Team (Late st Contact Info) Description 02/07/2025 1:00 PM EDT Appointment [facility] Xray [address] [place] [address] Health Maintenance Due Date Last Done Comments Breast Cancer Screening 1975 DTaP,Tdap,and Td Vaccines (1 - Tdap) 1992 Hepatitis B Vaccines (1 of 3 - 19+ 3-dose series) 1992 Cervical Cancer Screening: P ap Smear 1994 Pneumococcal Vaccine: 50+ Ye ars (1 of 1 - PCV) 2023 Zoster Vaccines (1 of 2) 2023 COVID-19 Vaccine ( - 2023-2 5 season) 2024 Colorectal Cancer Screening: Colonoscopy 10/31/2024 Depression Screening 10/31/2024 HIV Screening 10/31/2024 Hepatitis C Screening 10/31/2024 Social Influencers of Health Screening 10/31/2024 Influenza Vaccine (Season Ended) 2025 HIB Vaccines Aged Out No longer eligi ble based on patient's age to complete this topic HPV Vaccines Aged Out No longer eligi ble based on patient's age to complete this topic Hepatitis A Vaccines Aged Out No long er eligible based on patient's age to complete this topic IPV Vaccines Aged Out No longer eligi ble based on patient's age to complete this topic MMR Vaccines Aged Out No longer eligi ble based on patient's age to complete this topic Meningococcal ACWY Vaccine Aged Out N o longer eligible based on patient's age to complete this topic Meningococcal B Vaccine Aged Out No l onger eligible based on patient's age to complete this topic Pneumococcal Vaccine: Pediat rics (0 to 5 Years) and At-Risk Patients (6 to 64 Years) Aged Out No longer eligible b ased on patient's age to complete this topic RSV Immunization Patients Un di 20 months Aged Out No longer eligible b ased on patient's age to complete this topic Varicella Vaccines Aged Out No longer eligible based on patient's age to complete this topic Insurance MEDICAID - [place]
--- NOTE | 2024-12-07 08:00 | CA_ITS ---
Transthoracic Echocardiogram Patient (Last, First, Middle): Elida Putnam D Gender: Female Date of : 1975 Age: 49 Procedure Date: 12/07/2024 Procedure Type: Transthoracic Echocardiogram Location: OP Height: 160.02 cm Weight: 78.47 kg BSA: 1.82 m2 Heart Rate: bpm BP: 122 / 80 mmHg Refrigerating Technician: TO Referring MD: Jovani Glynn MD Yarn Bleaching Machine Operator: Jovani Glynn MD Symptoms: R55 - Syncope and collapse Study Quality: Adequate w contrast ECG Rhythm: Sinus Conclusions: - Essentially normal study with a small outpouching noted of the apical free wall of the right ventricle for unclear significance. Could be related to off axis views Findings Procedure Information Contrast agent, definity, is being given per protocol without apparent complications. Left Ventricle Normal left ventricular size, thickness, and systolic function. The visually estimated ejection fraction is between 55-60%. Spectral Doppler is indicative of a normal filling pattern. Right Ventricle Normal right ventricular cavity size. There is borderline right ventricular systolic function. that appears to be a small outpouching of the apical right ventricular free wall. Unclear significance. Atria Both atria are normal in size. There is no evidence of interatrial shunt. Aortic Valve Normal aortic valve structure and function. There is no aortic valve stenosis. There is no aortic valve regurgitation. Mitral Valve Normal mitral valve structure and function. There is trace mitral valve regurgitation. There is no mitral valve stenosis. Pulmonic Valve The pulmonic valve is likely normal. Tricuspid Valve Normal tricuspid valve structure. Tricuspid regurgitation envelope is inadequate for calculation of right ventricular systolic pressure. Normal right atrial pressure. Great Vessels All visible segments of the aorta are normal in size. The pulmonary artery was not well visualized. Venous The inferior vena cava is normal in size and collapses greater than 50% with inspiration. Pericardium/Pleural There is no evidence of pericardial effusion. Prior Study Comparison No prior study available for comparison. Measurements 2D Linear Measurements IVSd: 0.90 0.6-0.9/0.6-1.0 cm LVIDd: 4.32 3.9-5.3/4.2-5.9 cm LVIDd Index: 2.37 2.4-3.2/2.2-3.1 cm/m2 LVIDs: 2.60 2.0-3.6 cm LVPWd: 0.85 0.7-1.1 cm LA Diam: 3.70 2.7-3.8/3.0-4.0 cm LAIDs Index: 2.03 1.5-2.3 cm/m2 LV Mass: 148.29 67-162/88-224 g LV Mass Index: 81.48 43-95/49-115 g/m2 LVOT Diam: 2.00 3.0+(-)1.3 cm 2D Systolic Function EF 4C: 54.80 >55% EF 2C: 62.30 >55% EF BiP: 58.30 >55% Mitral Valve MV Pk E: 0.99 MV PK A: 0.47 MV Decel Time: 204.00 E/A: 2.10 E'Lateral: 12.20 E'Medial: 10.70 E/E' Med: 9.30 E/E' Lat: 8.10 PHT: 60.00 MVA PHT: 3.67 Decel [place]: 4.87 Aortic Valve AoV Pk Harry: 1.45 AoV Mn Harry: 0.95 AoV VTI: 0.34 AoV Pk Grad: 8.00 Aov Mn Grad: 4.00 LI Cont.VTI: 2.74 LVOT LVOT Pk Harry: 1.36 LVOT Mn Harry: 0.82 LVOT VTI: 0.30 LVOT Pk Grad: 7.00 LVOT Mn Grad: 3.00 LVOT Diam: 2.00 LVOT Area: 3.14 Diastolic Function MV Pk E: 0.99 MV Pk A: 0.47 E/A: 2.10 E'Medial: 10.70 E/E' Med: 9.30 E' Laterial: 12.20 E/E' Lat: 8.10 Right Ventricle TAPSE (mm): 22.40 TVS' Harry: 12.40 Tricuspid Valve RA Press: 3.00 Great Vessels Aorta Sinus of Valsalva: 2.86 2.0-3.5 cm Ao Asc: 3.00 2.1-3.4 cm Updated in Other Vendor System with Status of Final Jovani Glynn MD electronically signed on 12/07/2024 2:27:27 PM with status of Final
== END ==
LOC: HO.CARD 07:56
PROVIDERS: PCP Family Medicine; Visit Provider Internal Medicine Cardiovascular Disease
DX: R55 Syncope and collapse (principal)
CPT/HCPCS: 93270; 93306; Q9957

== ENCOUNTER → 2024-12-07 08:00 | Outpatient (BNV) | payer MEDICAID, SELFPAY | PROVIDERS: PCP Family Medicine; Visit Provider Internal Medicine Cardiovascular Disease | DX: R55 Syncope and collapse (principal); R94.39 Abnormal result of other cardiovascular function study | CPT/HCPCS: 93306 ==

== ENCOUNTER 2025-02-07 10:00 | Outpatient (AMB) | payer MEDICAID, SELFPAY ==
[2025-02-07 10:02] VITALS: BP 116/76; PULSE 76; BMI 31.5
--- NOTE | 2025-02-07 10:02 | A.OFFVIS_ITS ---
Vital Signs 02/07/25 10:02 Height 5 ft 3 in Weight 177 lb 11.081 oz BMI 31.5 BP 116/76 Blood Pressure Location Lt brachial Position Sitting Pulse 76 Pulse Source Pulse Oximeter Intake Visit Reasons: follow up after testing Advertising Director Required: Yes Advertising Director Name: Lisa Hawkins [phone] Accompanied by: Spouse Allergies SEAFOOD Allergy (Unknown, Uncoded 02/14/23 12:30) HIVES Medication List - Last Reconciled 02/07/25 by Kristen Wright NP-C acetaminophen (Tylenol) 650 mg (2 x 325 mg) PO Q6H PRN bisacodyl (Dulcolax (bisacodyl)) 15 mg (3 x 5 mg) PO ONCE 1 day cyclobenzaprine 5 mg PO TID famotidine 20 mg PO DAILY PRN ibuprofen 600 mg PO Q6H PRN levothyroxine (Synthroid) 100 mcg PO DAILY lidocaine 5% (Lidoderm) 1 patch topical DAILY omeprazole 20 mg PO DAILY polyethylene glycol 3350 (Miralax) 238 grams PO ONCE PRN 1 day HPI HPI follow up after testing: Details: Elida is a 49-year-old female with no cardiac history who was recently evaluated for report of syncopal events that were thought to be vasovagal in nature. A tilt-table test was ordered however not completed as of yet. Cardiac event monitor was completed however result is not available. An echocardiogram was done and she now presents for follow-up. Today she reports that she has not had recurrent syncope since her last visit in October. She has increased her hydration and has been doing well. Her syncopal events did not have any known triggers and had occurred even with her in a sitting position which was atypical. She denies any concerning heart palpitations. No chest discomfort or shortness of breath. She reports good activity tolerance. Her significant other is present. [facility] Medical History Insomnia Migraines Smoker Asthma Hypothyroidism Surgical History History of section Social History Household Members: Family Alcohol intake: never Patient Tobacco Use Status: Never used Tobacco Substance Use Type: Marijuana Current occupational status: unemployed Review of Systems Const All systems reviewed & are unremarkable except as noted in HPI and below Denies daytime sleepiness, Denies difficulty sleeping, Denies snoring, Denies stops breathing during sleep and Denies weakness Card Denies chest pain, Denies rapid heart rate, Denies irregular heart rhythm, Denies claudication, Denies leg edema, Denies lightheadedness, Denies palpitations, Denies dyspnea, Denies dyspnea on exertion, Denies orthopnea, Denies paroxysmal nocturnal dyspnea and Denies slow heart rate Resp Denies cough, Denies dyspnea, Denies dyspnea on exertion and Denies snoring GI Reports no additional complaints, Denies hematochezia, Denies change in stool character and Denies dyspepsia Musc Denies abnormal gait, Denies muscle weakness and Denies numbness Neuro Denies abnormal gait, Denies numbness and Denies weakness Endo Denies palpitations Physical Exam Vital Signs: Last Vital Signs Pulse 76 02/07/25 10:02 BP 116/76 02/07/25 10:02 BMI result Body Mass Index 31.5 Const General: cooperative, healthy appearing, comfortable and no acute distress Orientation/consciousness: patient oriented x3 Neck Neck: Yes normal visual inspection Resp Effort & Inspection: normal respiratory effort Auscultation: clear to auscultation bilaterally, no rales, no rhonchi and no wheezes Cardio Rate: regular rate Rhythm: regular rhythm Heart sounds: S1 normal heart sound present, S2 normal heart sound present, no gallops, no murmurs and no rubs Neuro General: patient oriented x3 Extrem General: Yes normal to inspection and No no pedal edema Psych Appearance: grossly normal Mental Status: mental status grossly normal Speech and movement: Normal speech and movement present Assessment & Plan Assessment & Plan (1) Syncope: Code(s): R55 - Syncope and collapse Category: Medical Plan: Reports of syncopal events suspected to be vasovagal in nature. Tilt-table test not scheduled as of yet. Will contact [facility] to get this set up. Cardiac event monitor worn, results are in process. Plan to call her once results are available. Echocardiogram 12/07/2024 was normal with outpouching of the apical free wall of the right ventricle question related to off axis views. No recurrent syncope in the last few months. Continue good hydration, recognize symptoms and lay down until symptoms pass. Avoid driving if any symptoms. Emergency care if ever needed. Cardiology follow-up 4 months, sooner if needed. Plan Time spent on chart review, documentation, interview and assessment Coding Level of Care Code Est Pt Level 3 (37422) Complex EM visit Add On G2211 Diagnoses Syncope R55 Time Spent (min) 22
--- OUTSIDE RECORDS SUMMARY | 2025-02-07 11:19 | XMS_ITS | Encounter Summary ---
Author Organization [employer] Address [address] [facility] 7 [place] [address] Care Team Providers Care Hat Conditioner Name Role Phone Kate Penn MD Primary Care Provider [phone] Reason for Visit * Reason Onset Date Comments Created in error 12/16/2023 Encounter Details Date Type Department Care Team ([facility] st Contact Info) Description 12/16/[address] [facility] MEDICINE [address] [place], [place] [phone] Kate Penn MD [address] [place], [place] [phone] Created in error Social History Tobacco Use [...] Care Team (Late st Contact Info) Description 02/24/2025 1:00 PM EDT Office Visit [facility] OPTOMETRY [address] [place], [place] [phone] Jared, Nuha, OD [address] [place] [address] 03/23/2025 10:00 AM EDT Office Visit [facility] MEDICINE [address] [place] [address] Kate Penn MD [address] [place] [address] documented as of this encounter Visit Diagnoses Not on filedocumented in this encounter Additional Health Concerns Assessment Noted Time PHQ-9 Depression Total Score: 7 04/14/20 23 1:37 PM EST documented as of this encounter Care Teams Hat Conditioner Relationship Specialty Start Date End Date Kate Penn MD [address] [place] [address] PCP - General Family Medicine 03/21/13 documented as of this encounter
--- OUTSIDE RECORDS SUMMARY | 2025-02-07 11:19 | XMS_ITS | Encounter Summary ---
Author Organization [employer] Address [address] [place] [address] Care Team Providers Care Weatherization Technician Name Role Phone Kate Penn MD Primary Care Provider [phone] Reason for Referral * Chiropractic (Routine) - Closed Specialty Diagnoses / Procedures Referred By Mariluz duval Referred To Contact Chiropractic Medicine Diagnoses Chronic low back pain, unspecified back pain laterality, unspecified whether sciatica present Kate Penn MD [address] [place] [address] Phone: tel: fax: [facility] [address] [place] [address] Phone: tel: fax: Referral ID Status Reason Start Date Expiration Date V isits Requested Visits Authorized [id number] Closed Specialty Services Required 11/11/2023 11/10/2024 20 20 Encounter Details Date Type Department Care Team (Late st Contact Info) Description 11/06/2023 Orders Only [facility] MEDICINE [address] [place] [phone] Kate Penn MD [address] [place] [phone] Chronic low back pain, unspecified back pain [...] Description 02/24/2025 1:00 PM EDT Office Visit [facility] OPTOMETRY [address] [place] [address] Jared, Nuha, OD [address] [place] [address] 03/23/2025 10:00 AM EDT Office Visit [facility] MEDICINE [address] [place] [address] Kate Penn MD [address] [place] [address] Scheduled Referrals Name Type Priority Associated Diagnoses [...] documented as of this encounter Care Teams Weatherization Technician Relationship Specialty Start Date End Date Kate Penn MD [address] [place] [address] PCP - General Family Medicine 03/21/13 documented as of this encounter
--- OUTSIDE RECORDS SUMMARY | 2025-02-07 11:19 | XMS_ITS | Encounter Summary ---
Author Organization [employer] Address [address] [facility] 7 [place] [address] Care Team Providers Care Studio Model Name Role Phone Kate Penn MD Primary Care Provider [phone] Reason for Visit * Reason Onset Date Comments Med Refill 03/08/2024 Encounter Details Date Type Department Care Team (Late st Contact Info) Description 03/08/2024 Refill [facility] MEDICINE [address] [place] [address] Kate Penn MD [address] [place], [place] [phone] Social History Tobacco Use Types Packs/Day Years [...] Description 02/24/2025 1:00 PM EDT Office Visit [facility] OPTOMETRY [address] [place] [address] Jared, Nuha, OD [address] [place] [address] 03/23/2025 10:00 AM EDT Office Visit [facility] MEDICINE [address] [place] [address] Kate Penn MD [address] [place] [address] documented as of this encounter Visit Diagnoses Not on filedocumented in this encounter Additional Health Concerns Assessment Noted Time PHQ-9 Depression Total Score: 11 024 11:55 AM EDT documented as of this encounter Care Teams Studio Model Relationship Specialty Start Date End Date Kate Penn MD [address] [place] [address] PCP - General Family Medicine 03/21/13 documented as of this encounter
--- OUTSIDE RECORDS SUMMARY | 2025-02-07 11:19 | XMS_ITS | Encounter Summary ---
Author Organization [employer] Address [address] [facility] 7 [place] [address] Care Team Providers Care Yardage Caller Name Role Phone Kate Penn MD Primary Care Provider [phone] Encounter Details Date Type Department Care Team ([facility] Contact Info) Description 09/02/2024 Orders Only [facility] MEDICINE [address] [place], [place] [phone] Kate Penn MD [address] [place], [place] [phone] Elevated anti-tissue transglutaminase (tTG) IgA level (Primary [...] Description 02/24/2025 1:00 PM EDT Office Visit [facility] OPTOMETRY [address] [place] [address] JaredNuha blank, OD [address] [place] [address] 03/23/2025 10:00 AM EDT Office Visit [facility] MEDICINE [address] [place] [address] Kate Penn MD [address] [place] [address] documented as of this encounter Procedures Procedure [...] 11:22 AM EDT) Creatinine, Urine 72.87 mg/dL [facility] Microalbumin Urine <5.0 mg/L [facility] Microalbum Creatinine Ratio Ur TNP <30 ug/mg cr [facility] Comment:Unable to calculate albumin/creatinine ratio due to lowmicroalbumin or creatinine result. Urine 09/06/2024 11:2 2 AM EDT 09/06/2024 1:02 PM EDT us Kate Penn MD LAB URINE ORDERABLES Final Resul t [facility] [address] [place] [phone] * (ABNORMAL) Urinalysis, Complete, with Reflex to Culture (09/06/2024 11:22 AM EDT) Color Urine Yellow [facility] Appearance Urine Clear [facility] PH 6.0 5.0 - 9.0 [facility] Glucose Urine UA Negative Negative mg/dL [facility] Urine Blood Small (1+)(A) Negative [facility] Specific [place] - Urine 1.015 1.005 - 1.025 [facility] Urine Protein Negative Neg-Trace mg/dL [facility] Urine Ketones Negative Negative mg/dL [facility] Nitrite Urine Negative Negative [facility] Leukocyte Esterase Urine Trace(A) Negative [facility] RBC Urine 0-2 0 - 2 /HPF [facility] Urine WBC 6-10 0 - 5 /HPF [facility] Urine Squamous Epithelial Cell 3-5 0 - 2 /HPF [facility] Urine Bacteria None Seen None Seen [facility] Hyaline Casts, Urine 0-2 0 - 2 /LPF [facility] Urine 09/06/2024 11:2 2 AM EDT 09/06/2024 1:02 PM EDT Narrative [facility] - 09/06/2024 1:32 PM EDT Urine, Clean Catch us Kate Penn MD LAB URINE ORDERABLES Final Resul t Performing Organization Address City/[facility]/ZIP Co de Phone Number [facility] [address] [place] [phone] * (ABNORMAL) Lactate Dehydrogenase (LD) (09/06/2024 11:22 AM EDT) Lactate Dehydrogenase 221(H) 122 - 220 U/L [facility] Blood Venous blood specimen / Unknown 09/06/2024 11:22 AM EDT 09/06/2024 1:13 PM EDT us Kate Penn MD LAB BLOOD ORDERABLES Final Resul t Performing Organization Address [facility]/ZIP Co de Phone Number [facility] [address] [place] [phone] * (ABNORMAL) Comprehensive Metabolic Panel (09/06/2024 11:22 AM EDT) Sodium 142 135 - 145 mmol/L [facility] Potassium 4.0 3.3 - 5.1 mmol/L [facility] Chloride 109(H) 96 - 108 mmol/L [facility] Carbon Dioxide 27 22 - 29 mmol/L [facility] Anion Gap 10(L) 12 - 20 [facility] Urea Nitrogen (BUN) 14 9 - 16 mg/dL [facility] Creatinine, Serum 0.98 0.5 - 1.4 mg/dL [facility] Estimated Glomerular Filt Rate 60 [facility] Comment:Chronic Kidney Disea se: Estimated GFR < 60 mL/min/1.73n2Hnztdz Kidney Disease: Estimated GFR < 15 mL/min/1.73m2 Glucose 103 60 - 115 mg/dL [facility] Calcium 9.4 8.4 - 10.2 mg/dL [facility] Bilirubin, Total 0.3 0.0 - 1.0 mg/dL [facility] Aspartate Amino Transferase 24 5 - 31 U/L [facility] Alanine Aminotransferase 29 0 - 31 U/L [facility] Total Protein 7.5 6.5 - 8.0 g/dL [facility] Albumin Level 3.9 3.5 - 5.0 g/dL [facility] Alkaline Phosphatase 63 39 - 117 U/L [facility] Blood Venous blood specimen / Unknown 09/06/2024 11:22 AM EDT 09/06/2024 1:13 PM EDT us Kate Penn MD LAB BLOOD ORDERABLES Final Resul t Performing Organization Address City/State/[facility] Co de Phone Number [facility] [address] [place] [phone] documented in this encounter Visit Diagnoses Diagnosis 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
--- OUTSIDE RECORDS SUMMARY | 2025-02-07 11:19 | XMS_ITS | Encounter Summary ---
Author Organization [employer] Address [address] [facility] 7t [place] [address] Care Team Providers Care Splitting Machine Operator Helper Name Role Phone Kate Penn MD Primary Care Provider [phone] Encounter Details Date Type Department Care Team ([facility] Contact Info) Description 09/07/2024 Orders Only [facility] MEDICINE [address] [place] [address] Kate Penn MD [address] [place] [address] Social History Tobacco Use Types Packs/Day Years [...] Description 02/24/2025 1:00 PM EDT Office Visit [facility] OPTOMETRY [address] [place] [address] Jared, Nuha, OD [address] [place] [address] 03/23/2025 10:00 AM EDT Office Visit [facility] MEDICINE [address] [place] [address] Kate Penn MD [address] [place] [address] documented as of this encounter Visit Diagnoses Not on filedocumented in this encounter Additional Health Concerns Assessment Noted Time PHQ-9 Depression Total Score: 19 025 11:08 AM EDT documented as of this encounter Care Teams Splitting Machine Operator Helper Relationship Specialty Start Date End Date Kate Penn MD [address] [place] [address] PCP - General Family Medicine 03/21/13 documented as of this encounter
--- OUTSIDE RECORDS SUMMARY | 2025-02-07 11:19 | XMS_ITS | Encounter Summary ---
Author Organization [employer] Address 75 [facility] 7t [place] [address] Care Team Providers Care Manufacturing Analyst Name Role Phone Kate Penn MD Primary Care Provider Encounter Details Date Type Department Care Team ([facility] Contact Info) Description 12/17/2024 Orders Only [facility] MEDICINE [address] [place] [address] Kate Penn MD [address] [place] [address] Social History Tobacco Use Types Packs/Day Years [...] Date Recorded Patient Health Questionnaire-2 Score 4 12/05/2024 Internet Access Answer Date Recorded Internet Access [...] Description 02/24/2025 1:00 PM EDT Office Visit [facility] OPTOMETRY [address] [place] [address] Jared, Nuha, OD [address] [place] [address] 03/23/2025 10:00 AM EDT Office Visit [facility] MEDICINE [address] [place] [address] Kate Penn MD [address] [place] [address] documented as of this encounter Visit Diagnoses Not on filedocumented in this encounter Additional Health Concerns Assessment Noted Time PHQ-9 Depression Total Score: 19 025 11:08 AM EDT documented as of this encounter Care Teams Manufacturing Analyst Relationship Specialty Start Date End Date Kate Penn MD [address] [place] [address] PCP - General Family Medicine 03/21/13 documented as of this encounter
--- OUTSIDE RECORDS SUMMARY | 2025-02-07 11:19 | XMS_ITS | Encounter Summary ---
Author Organization [employer] Address 75 [facility] 7t [place] [address] Care Team Providers Care Credit Card Analyst Name Role Phone Kate Penn MD Primary Care Provider [phone] Encounter Details Date Type Department Care Team ([facility] st Contact Info) Description 10/15/2023 Orders Only [facility] MEDICINE [address] [place], [place] [phone] Kate Penn MD [address] [place], [place] [phone] Acquired hypothyroidism (Primary Dx) Social History Tobacco [...] Description 02/24/2025 1:00 PM EDT Office Visit [facility] OPTOMETRY [address] [place] [address] JaredNuha blank, OD [address] [place] [address] 03/23/2025 10:00 AM EDT Office Visit [facility] MEDICINE [address] [place] [address] Kate Penn MD [address] [place] [address] documented as of this encounter Procedures Procedure Name Priority Date/Time Associated Diagnosis Comments TSH Routine 03/07/2024 1:05 PM EDT Acquired hypothyroidism T4, FREE Routine 03/07/2024 1:05 PM EDT Acquired hypothyroidism documented in this encounter Results * T4, Free (03/07/2024 1:05 PM EDT) Free T4 (Free Thyroxine) 1.15 0.71 - 1.85 ng/dL [facility] Blood Venous blood specimen / Unknown 03/07/2024 1:05 PM EDT 03/07/2024 4:37 PM EDT us Kate Penn MD LAB BLOOD ORDERABLES Final Resul t Performing Organization Address [facility]/ZIP Co de Phone Number [facility] [address] [place] [phone] * TSH (03/07/2024 1:05 PM EDT) Thyroid Stimulating Hormone 0.75 0.32 - 4.0 uIU/mL [facility] Comment:TSH 3rd Generation ( [facility]) Blood Venous blood specimen / Unknown 03/07/2024 1:05 PM EDT 03/07/2024 4:37 PM EDT us Kate Penn MD LAB BLOOD ORDERABLES Final Resul t Performing Organization Address [facility]/[employer] Co de Phone Number [facility] [address] [place] [phone] documented in this encounter Visit Diagnoses Diagnosis Acquired hypothyroidism- Primary Unspecified hypothyroidism documented in this encounter Additional Health Concerns Assessment Noted Time PHQ-9 Depression Total Score: 7 04/14/20 23 1:37 PM EST documented as of this encounter Care Teams Credit Card Analyst Relationship Specialty Start Date End Date Kate Penn MD [address] [place] [phone] PCP - General Family Medicine 03/21/13 documented as of this encounter
--- OUTSIDE RECORDS SUMMARY | 2025-02-07 11:19 | XMS_ITS | Encounter Summary ---
Author Organization [employer] Address 75 [facility] 7 [place] [address] Care Team Providers Care Display Fabricator Name Role Phone Kate Penn MD Primary Care Provider [phone] Reason for Visit * Reason Onset Date Comments Med Refill 12/26/2024 Encounter Details Date Type Department Care Team (Late st Contact Info) Description 12/26/[address] [facility] [address] [place] [address] Kate Penn MD [address] [place], [place] [phone] Social History Tobacco Use Types Packs/Day Years [...] 02/24/2025 1:00 PM EDT Office Visit [facility] OPTOMETRY [address] [place] [address] Jared, Nuha, OD [address] [place] [address] 03/23/2025 10:00 AM EDT Office Visit [facility] MEDICINE [address] [place] [address] Kate Penn MD [address] [place] [address] documented as of this encounter Visit Diagnoses Not on filedocumented in this encounter Additional Health Concerns Assessment Noted Time PHQ-9 Depression Total Score: 19 025 11:08 AM EDT documented as of this encounter Care Teams Display Fabricator Relationship Specialty Start Date End Date Kate Penn MD [address] [place] [address] PCP - General Family Medicine 03/21/13 documented as of this encounter
--- OUTSIDE RECORDS SUMMARY | 2025-02-07 11:19 | XMS_ITS | Encounter Summary ---
Author Organization [employer] Address [address] [address] Care Team Providers Care Folder Hand Name Role Phone Kate Penn MD Primary Care Provider [phone] Encounter Details Date Type Department Care Team ([facility] Contact Info) Description 06/05/[address] [facility] MED[facility]INE [address] [place] [phone] Kate Penn MD [address] [place] [phone] Mild intermittent asthma without complication (Primary Dx) [...] Encounters Date Type Department Care Team (Late Contact Info) Description 02/24/2025 1:00 PM EDT Office Visit [facility] OPTOMETRY [address] [place], [place] [phone] Nuha Coleman, OD [address] [place] [address] 03/23/2025 10:00 AM EDT Office Visit [facility] [address] [place] [phone] Kate Penn MD 230 [place], [place] [phone] documented as of this encounter Visit Diagnoses Diagnosis Mild intermittent asthma without complication- Primary documented in this encounter Care Teams Folder Hand Relationship Specialty Start Date End Date Kate Penn MD 230 [place] [address] PCP - General Family Medicine 03/21/13 documented as of this encounter
--- OUTSIDE RECORDS SUMMARY | 2025-02-07 11:19 | XMS_ITS | Encounter Summary ---
Author Organization [employer] Address 75 [facility] 7t [place] [address] Care Team Providers Care Button Breaker Operator Name Role Phone Kate Penn MD Primary Care Provider Encounter Details Date Type Department Care Team ([facility] st Contact Info) Description 05/06/2023 Orders Only [facility] MEDICINE [address] [place], [place] [phone] Kate Penn MD 230 [place], [place] [phone] Chronic low back pain, unspecified back pain [...] Description 02/24/2025 1:00 PM EDT Office Visit [facility] OPTOMETRY [address] [place], [place] [phone] Jared, Nuha, OD [address] [place] [address] 03/23/2025 10:00 AM EDT Office Visit [facility] MEDICINE [address] [place] [address] Kate Penn MD [address] [place], [place] [phone] documented as of this encounter Visit Diagnoses Diagnosis Chronic low back pain, unspecified back pain laterality, unspecified whether sciatica present- Primary documented in this encounter Additional Health Concerns Assessment Noted Time PHQ-9 Depression Total Score: 7 04/14/20 23 1:37 PM EST documented as of this encounter Care Teams Button Breaker Operator Relationship Specialty Start Date End Date Kate Penn MD [address] [place], [place] [phone] PCP - General Family Medicine 03/21/13 documented as of this encounter
--- OUTSIDE RECORDS SUMMARY | 2025-02-07 11:20 | XMS_ITS | Clinical Summary ---
Author Organization [employer] Address 75 [facility] 7t [place] [address] Care Team Providers Care Fabric Inspector Name Role Phone Kate Penn MD Primary Care Provider [phone] Allergies No known active allergies Medications LORazepam (Ativan) 0.5 MG tablet Take 1 tablet by mouth if needed at bedtime. Active hydrocortisone 1 % cream Apply topically every 12 (twelve) hours. 2 Active hydrocortisone 2.5 % ointment Apply topically at bed time. 0 Active sodium chloride (Scioto) 0.65 % nasal spray Use intranasally to moisten nose and/or before & after blowing nose, as needed / BULGARIAN LABEL 0 Active Witch Anali (Medicated Pads) 50 % pads Apply topically in the morning. 2 Active Hydrocortisone, Perianal, 1 % cream APPLY A THIN LAYER TO AFFECTED AREA(S) 2 TO 3 TIMES PER DAY 2 Active escitalopram (Lexapro) 5 MG tablet Take 5 mg by mouth at bedtime. 3 Active Diclofenac Sodium 1 % gel Apply to affected area once or twice daily as needed for pain 150 g 3 4 Active fluticasone (Flonase) 50 MCG/ACT nasal spray INSTILL 1 SPRAY IN EACH NOSTRIL ONCE DAILY 48 g 4 Active estradiol (Climara) 0.025 MG/24HR Place 1 patch on the skin 1 (one) time per week. 4 patch 11 4 Active Lidoderm 5 % patch APPLY 1-2 PATCHES TO SKIN EVERY DAY NEEDED FOR PAIN. MAY LEAVE ON UP TO 12 HOURS THEN REMOVE POR 12 HOURS 60 patch 2 4 Active levothyroxine (Synthroid, Levoxyl) 100 MCG tablet TAKE 1 TABLET BY MOUTH EVERY DAY 90 tablet 3 5 Active budesonide-form oterol (Symbicort) 80-4.5 MCG/ACT inhaler Inhale 2 puffs in the morning and at bedtime. Take 1 or 2 puffs as needed for asthma symptoms. Rinse mouth with water after use to reduce aftertaste and incidence of candidiasis. Do not swallow. 1 each 3 5 12/06/19 26 Active montelukast (Singulair) 10 MG tablet Take 1 tablet (10 mg) by mouth at bedtime. 90 tablet 3 5 Active SUMAtriptan (Imitrex) 50 MG tabletIndicatio ns:Migraine without aura and without status migrainosus, not intractable Take 1 tablet (50 mg) by mouth 1 (one) time if needed for migraine. May repeat dose once in 2 hours if no relief. Do not exceed 2 doses in 24 hours. 10 tablet 1 5 Active cyclobenzaprine (Flexeril) 5 MG tablet TAKE 1 OR 2 TABLETS BY MOUTH THREE TIMES DAILY NEEDED FOR BACK PAIN 45 tablet 3 5 Active omeprazole (PriLOSEC) [address] capsule Take 1 capsule (20 mg) by mouth before breakfast. Do not crush or chew. 90 capsule 3 5 Active ibuprofen 600 MG tablet Take 600 mg by mouth every 8 (eight) hours if needed for mild pain, fever, headaches or moderate pain. Active fexofenadine (Yee) 180 MG tablet Take 1 tablet (180 mg) by mouth Once per day. 90 tablet 3 5 Active Active Problems Problem Noted Date Diagnosed Date Elevated BP without diagnosis of hypertension Assessment & Plan (12/05/2024 1:30 PM EDT): -Goal BP < 130/80 per ACC/AHA guideline (Treatment threshold >=140/90) -BP elevated today. Previously had low BP / syncopal episode (?vasovagal) -Continue working on lifestyle modifications -Recommended self-monitoring BP. Check daily 1 week before BP check appointment. -Return for BP check in 1 mo. If SBP > 135 at home and normal head up tilt table test, start telmisartan 20 mg daily or losartan 25 mg daily Maternal hypotension syndrome, antepartum 2024 Syncope 07/21/2024 Assessment & Plan (12/05/2024 1:35 PM EDT): - Seen by director of manufacturing - Head up tilt table test is scheduled on 12/07/24. Assessment & Plan (08/29/2024 12:16 PM EDT): -Pt has upcoming appointment with cardiology -Will evaluate with heart monitor and head imaging Assessment & Plan (07/21/2024 4:08 PM EST): Likely vasovagal given hypotension. Hemodynamically stable, currently no symptoms of dizziness. -referred to Cardiology. Hypotension 07/21/2024 Assessment & Plan (12/05/2024 1:31 PM EDT): - seen by director of manufacturing on 10/30/24 for syncopal episode. Likely vasovagal. - upcoming appointment for head up tilt table test. Assessment & Plan (08/29/2024 12:11 PM EDT): -Reported home BP low but normal; higher in the clinic -Pt was advised to bring her BP monitor so that we can check that the machine is functioning normally -Pt has upcoming appointment with director of manufacturing in October Assessment & Plan (07/21/2024 4:08 [...] smoking 10/15/2015 Migraine 06/21/2015 Assessment & Plan (12/07/2024 10:46 PM EDT): - continue judicious use of sumatriptan prn - Prescribed cyclobenzaprine (Flexeril) 5 MG tablet 12/07/2024 Assessment & Plan (03/08/2024 8:34 AM EDT): - continue judicious use of sumatriptan prn Assessment & Plan (04/17/2023 1:24 PM EST): - continue judicious use of sumatriptan prn Mixed anxiety and depressive disorder 06/21/2015 Assessment & Plan (12/05/2024 1:32 PM EDT): - Currently receiving lorazepam and escitalopram - Current S provider is ETHAN -Pt has labile mood possibly due to menopause -Continue current treatment plan -Pt requests FIRST AID OFFICER service so that someone can stay with her during the day -Recommended day program previously Assessment & Plan (08/29/2024 12:15 PM EDT): - Currently receiving lorazepam and escitalopram - Current S provider is RV -Pt has labile mood possibly due to menopause -Continue current treatment plan -Pt requests FIRST AID OFFICER service so that someone can stay with [...] and escitalopram - will [facility] and [facility] plan Assessment & Plan (04/17/2023 1:23 PM EST): - previously receiving lorazepam and escitalopram - will check her [facility] and treatment plan Allergic rhinitis 09/21/2014 Assessment & Plan (03/08/2024 8:33 AM EDT): - previously prescribed montelukast, questionable adherence - will prescribe flonase and loratadine Assessment & Plan (10/15/2023 10:34 AM EDT): - previously prescribed montelukast, questionable adherence - will prescribe flonase and loratadine Assessment & Plan (04/17/2023 1:25 PM EST): - previously prescribed montelukast, questionable adherence Asthma 05/26/2013 Assessment & Plan (12/05/2024 1:34 PM EDT): - improved after smoking cessation - change albuterol to LABA / ICS prn - continue montelukast Assessment & Plan (08/29/2024 11:26 AM EDT): [...] and cyclobenzaprine Hypothyroidism 01/21/2012 Assessment & Plan (12/05/2024 1:36 PM EDT): - normal TSH in August 2024 - continue current replacement Assessment & Plan (08/29/2024 12:09 PM EDT): [...] Encounters Date Type Department Care Team Description 01/04/2025 2:30 PM EDT Clinical Support [address] [address] Lena Orozco, RN Elevated BP without diagnosis of hypertension 01/04/2025 Travel 12/26/2024 Refill [facility] [address] [place] [phone] Kate Penn MD 12/17/2024 Orders Only [facility] [place] [address] Kate Penn MD 12/05/2024 1:00 PM EDT Office Visit [facility] [place] [address] Kate Penn MD Hypotension, unspecified hypotension type (Primary Dx); Elevated BP without diagnosis of hypertension; Acquired hypothyroidism; Mixed anxiety and depressive disorder; Mild intermittent asthma without complication; Syncope, unspecified syncope type; Migraine without aura and without status migrainosus, not intractable 12/05/2024 Travel 12/02/2024 Telephone [facility] [place] [address] Kate Penn MD chart prep from Last 3 Months Immunizations Immunization Administration [...] Sign Reading Time Taken Comments Blood Pressure 130/90 01/04/2025 2:25 PM EDT Pulse 66 01/04/2025 2:25 PM EDT Temperature 36.4 C (97.5 F) 08/29/2024 11:02 AM EDT Respiratory Rate 20 12/05/2024 12:58 PM EDT Oxygen Saturation 98% 01/04/2025 2:25 PM EDT room air Inhaled Oxygen Concentration - - Weight 78.5 kg (173 lb) 12/05/2024 12:58 PM EDT Height 160 cm (5' 3 ) 12/05/2024 12:58 PM EDT Body Mass Index 30.65 12/05/2024 12:58 PM EDT Plan of Treatment Upcoming Encounters Date Type Department Care Team (Late st Contact Info) Description 02/24/2025 1:00 PM EDT Office Visit [facility] OPTOMETRY [address] [place], [place] [phone] Jared, Nuha, OD 230 [place] [address] 03/23/2025 10:00 AM EDT Office Visit [facility] MED[facility] [address] [place] [address] Kate Penn MD [address] [place], [place] [phone] Health Maintenance Due Date Last Done Comments CT Colonography 1975 Colonoscopy 1973 Colorectal Cancer Screening 1973 FIT DNA/Cologuard 1973 FIT 1973 FOBT 1975 Sigmoidoscopy 1975 Family Planning (PISQ) 1988 Pap Smear 1994 Zoster Vaccines (1 of 2) 2023 COVID-19 Vaccine ( season) 2024 Influenza Vaccine (#1) 2025 , 04/14/2023, 03/09/2018, Additional history exists Alcohol/Substance Use Screening 03/07/2025 03/07/2024 Depression Monitoring 06/06/2025 12/05/2024, 025 SDOH Screening 08/29/2025 08/29/2024 Mammogram 10/04/2025 10/05/2023, 06/10, 07/07/2022, Additional history exists Disability Screening 12/05/2025 12/05/2024 Tobacco Screening 12/05/2025 12/05/2024 Cervical Cancer Screening 06/24/2026 HPV/Cotest 06/24/2026 06/24/2021, [...] 05/09/2011, 08/12/2010, 10/12/2009 HIV Screening Completed 10/15/2023, 0509/2020, 08/09/2019 Hepatitis C Screening Completed 10/15/2023 , 10/09/2020, 08/09/2019 Pneumococcal Vaccine: 50+ Years Completed 03/07/2024, 02/13/2015 [...] Procedure Name Priority Date/Time Associated Diagnosis Comments HEPATITIS C AB W/REFL TO HCV RNA, [...] Relevant to Health Maintenance Results * (ABNORMAL) Lipid Panel with Reflex to Direct LDL (10/15/2023 11:32 AM EDT) Triglycerides 126 <150 mg/dL [facility] Comment:Desirable Triglyceri de: less than 150 mg/dLBorderline High Triglyceride 150-199 mg/dLHigh Triglyceride: 200-499 mg/dLVery High Triglyceride: greater than or equal to 5OO mg/dL Cholesterol 177 <200 mg/dL [facility] Comment:Desirable Cholestero l: less than 200 mg/dLBorderline High Cholesterol: 200-239 mg/dLHigh Cholesterol: greater than 239 mg/dL LDL Cholesterol Calculated 101(H) <100 mg/dL [facility] Comment:Desirable LDL: less than 100 mg/dLNear Optimal/Above Optimal LDL: 110- 129 mg/dLBorderline High LDL: 130-159 mg/dLHigh LDL: 160-189 mg/dLVery High LDL: greater than or equal to 190 mg/dL HDL Cholesterol 51 >40 mg/dL [facility] Comment:Desirable HDL: great er than 40 mg/dL Note: This HDL assay may give artificially low results in patients with liver disease. Blood 10/15/2023 11:3 2 AM EDT 10/15/2023 1:19 PM EDT us Kate Penn MD LAB BLOOD ORDERABLES Final Resul t [facility] [address] [place] [phone] [phone] * Hepatitis C Antibody with Reflex to HCV, RNA, Quantitative, Real-Time PCR (10/15/2023 11:32 AM EDT) Hepatitis C Antibody Nonreactive Nonreactive [facility] Comment:Antibodies to HCV no t detected; does not exclude early acuteHCV infection. Blood Venous blood specimen / Unknown 10/15/2023 11:32 AM EDT 10/15/2023 1:19 PM EDT Kate Penn MD LAB BLOOD ORDERABLES Final Resul t Performing Organization Address [facility] Co de Phone Number [facility] [address] [place] [phone] * HIV-1/2 Antigen and Antibodies, Fourth Generation, with Reflexes (10/15/2023 11:32 AM EDT) [facility] HIV AB/AG Nonreactive Nonreactive [facility] Comment:HIV-1 p24 Ag and/or HIV-1/HIV-2 Ab not detected.A test result that is nonreactive does not exclude thepossibility of exposure to or infection with HIV-1 and/orHIV-2. Nonreactive results in this assay for individualswith prior exposure to HIV-1 and/or HIV-2 may be due toantigen and antibody levels that are below the limit ofdetection of this assay.The [employer] HIV Ag/Ab Combo assay result andsupplemental assay results should be interpreted inconjunction with the patient's clinical presentation,history and other laboratory results. If the results areinconsistent with clinical evidence, additional testing issuggested to confirm the result. Blood Venous blood specimen / Unknown 10/15/2023 11:32 AM EDT 10/15/2023 1:19 PM EDT Kate Penn MD LAB BLOOD ORDERABLES Final Resul t Performing Organization Address City/[facility]/ZIP Co de Phone Number [facility] [address] [place] [phone] [phone] * BI Mammogram Screening Tomosynthesis Bilateral (10/05/2023 9:00 AM EDT) Anatomical Region Laterality Modality Breast Bilateral Mammography 10/05/2023 9:00 AM EDT Narrative 11/01/2023 6:29 AM EDT [facility] [address] [place] [address] Mammography Report Signed Patient: Elida Putnam MR#: [id number] : 1975 Acct:[id number] Age/Sex: 48 / F ADM Date: 10/05/23 Loc: [facility] Attending Dr: Kate Penn MD Ordering Physician: Kate Penn MD Results: 1Negative Date of Service: 10/05/23 Follow Up: 1 Year From Orig inal Mammogram Procedure(s): MM tomosynthesis screening BI Accession Number(s): [id number] cc: Kate Penn MD EXAMINATION: MM SCREENING [...] in OV> 11/01/23 0625 DD/ 0900 TD/TT: Audio/Video Technician: Procedure Note Donotuseinterpreter, Image - 11/01/2023 [facility] [address] [place] [address] Mammography Report Signed Patient: Elida Putnam DMR#: [id number] : 1975Acct:[id number] Age/Sex: 48 / FADM Date: 10/05/23 Loc: HO.MAMMO Attending Dr: Kate Penn MD Ordering Physician: Kate Penn MDResults: 1Negative Date of Service: 10/05/23Follow Up: 1 Year From Orig inal Mammogram Procedure(s): MM tomosynthesis screening BI Accession Number(s): [id number] cc: Kate Penn MD EXAMINATION: MM SCREENING [...] in OV> 11/01/23 0625 DD/ 0900 TD/TT: Audio/Video Technician: Kate Penn MD IM BI PROCEDURES Final Result * HPV E6/E7 RFLX LEEANN 16 18/45 (06/24/2021 12:11 PM EST) HPV 16 RNA [facility]NP [facility] HPV 18/45 RNA [facility] HPV E6 E7 ADD [facility] HPV mRNA E6/E7 rflx Not Detected Not Detected [facility] Comment: Methodology: Dub Room Engineer-Mediated Amplification This assay detects E6/E7 viral messenger RNA (mRNA) from 14 high-risk HPV types (16,18,31,33,35,39,45,51,52,56,58,59,66,68). The analytical performance characteristics of this assay have been determined by [employer]. The modifications have not been cleared or approved by the FDA. This assay has been validated pursuant to the CLIA regulations and is used for clinical purposes. For additional information, please refer to http://education.[employer]/faq/XVP599d1 (This link if provided for information/ educational purposes only.) THIS TEST WAS PERFORMED AT: [facility] [address] [place] [address] [address]LO[address],[place] [address] ISIDRO AVILA MD 06/24/2021 12:1 1 PM EST Rene Dumont MD HISTORICAL/NON ORDERABLE LABS Fi nal Result [facility] [address] from Last 3 Months or Most Recently Relevant to Health Maintenance Insurance [id number] [place] [id number] Care Teams Fabric Inspector Relationship Specialty Start Date End Date Kate Penn MD [address] [facility] [place] [phone] PCP - General Family Medicine 03/21/13
--- OUTSIDE RECORDS SUMMARY | 2025-02-07 11:20 | XMS_ITS | Clinical Summary ---
Author Organization [facility] Address [address] [place] [address] Phone Care Team Providers Care Acetaldehyde Converter Operator Name Role Phone Unavailable Primary Care Provider Unavailabl e Encounters Date Type Department Care Team Description 02/07/2025 1:00 PM EDT Hospital Encounter [facility] Xray [address] [place] [address] from Last 3 Months Social History Tobacco Use Types Packs/Day Years Used Date Smoking Tobacco: Never Assessed Comments Unknown Sex and Gender Information Value Date Recorded Sex Assigned at Not on file Legal Sex Female 1:29 PM EDT Gender Identity Not on file Sexual Orientation Not on file Plan of Treatment Upcoming Encounters Date Type Department Care Team (Late st Contact Info) Description 02/07/2025 1:00 PM EDT Hospital Encounter [facility] Xray [address] [place] [address] Health Maintenance Due Date Last Done Comments Breast Cancer Screening 1973 DTaP,Tdap,and Td Vaccines (1 - Tdap) 1992 Hepatitis B Vaccines (1 of 3 - 19+ 3-dose series) 1992 Cervical Cancer Screening: P ap Smear 1994 Pneumococcal Vaccine: 50+ Ye ars (1 of 1 - PCV) 2023 Zoster Vaccines (1 of 2) 2023 COVID-19 Vaccine (2023-2 5 season) 2024 Depression Screening 06/08/2024 Colorectal Cancer Screening: Colonoscopy 10/31/2024 HIV Screening 10/31/2024 Hepatitis C Screening 10/31/2024 Social Influencers of Health Screening 10/31/2024 Influenza Vaccine (#1) 2025 HIB Vaccines Aged Out No longer [...]
--- OUTSIDE RECORDS SUMMARY | 2025-02-07 13:00 | XMS_ITS | Encounter Summary ---
Author Organization [employer] Address [address] [place] [address] Care Team Providers Care Metal Machine Operator Name Role Phone Unavailable Primary Care Provider Unavailabl e Reason for Visit * Cardiac Stress Testing (Routine) - Pending Review Specialty Diagnoses / Procedures Referred By Contlucio t Referred To Contact Cardiology Diagnoses Hypotension Procedures Tilt table Jovani Glynn MD [facility]ARDI[facility]ULAR SPEC [address] [place] [address] Phone: tel: fax: [facility] Referral ID Status Reason Start Date Expiration Date V isits Requested Visits Authorized [id number] Pending Review 10/31/2024 10/31/2025 1 1 Encounter Details Date Type Department Care Team (Late st Contact Info) Description 02/07/2025 1:00 PM EDT Hospital Encounter [facility] Xray [address] [place] [address] Social History Tobacco Use Types Packs/Day Years Used Date Smoking Tobacco: Never Assessed Comments Unknown Sex and Gender Information Value Date Recorded Sex Assigned at Not on file Legal Sex Female 1:29 PM EDT Gender Identity Not on file Sexual Orientation Not on file documented as of this encounter Plan of Treatment Scheduled Orders Name Type Priority Associated Diagnoses Orde r Schedule Tilt table Cardiac Services Routine Hypotension 1 Occurrences starting 10/31/2024 until 10/31/2025 documented as of this encounter Visit Diagnoses Not on filedocumented in this encounter
== END 2025-02-07 10:35 | disposition home or self-care (01) ==
LOC: HO.HCS 10:00
PROVIDERS: PCP Family Medicine; Visit Provider Nurse Practitioner Family
DX: R55 Syncope and collapse (principal)
CPT/HCPCS: 99213

== ENCOUNTER → 2025-02-07 10:00 | Outpatient (BNVA) | payer MEDICAID, SELFPAY | PROVIDERS: PCP Family Medicine; Visit Provider Nurse Practitioner Family | DX: Z71.2 Person consulting for explanation of examination or test findings (principal); R55 Syncope and collapse | CPT/HCPCS: 99212 ==

== ENCOUNTER 2025-03-04 13:58 | Outpatient (REF) | payer MEDICAID, SELFPAY ==
--- OUTSIDE RECORDS SUMMARY | 2025-03-04 12:40 | XMS_ITS | Encounter Summary ---
Author Organization [employer] Address [address] [place] [address] Care Team Providers Care Masonry Supervisor Name Role Phone Kate Penn MD Primary Care Provider [phone] Encounter Details Date Type Department Care Team ([facility] st Contact Info) Description 03/04/2025 12:40 PM EDT Office Visit [facility] [address] [place] [address] Constipation, unspecified constipation type (Primary Dx); Acute cystitis with hematuria Social History Tobacco Use Types Packs/Day Years [...] AM EDT documented as of this encounter Last Filed Vital Signs Vital Sign Reading Time Taken Comments Blood Pressure 146/86 03/04/2025 12:37 PM EDT Pulse 88 03/04/2025 12:37 PM EDT Temperature 37.2 C (98.9 F) 03/04/2025 12:37 PM EDT Respiratory Rate 20 03/04/2025 12:37 PM EDT Oxygen Saturation 98% 03/04/2025 12:37 PM EDT Inhaled Oxygen Concentration - - Weight 80.3 kg (177 lb) 03/04/2025 12:37 PM EDT Height - - Body Mass Index 31.35 02/16/2025 3:11 PM EDT documented in this encounter Plan of Treatment Upcoming Encounters Date Type Department Care Team (Late st Contact Info) Description 03/23/2025 10:00 AM EDT Office Visit [facility] [address] [place] [address] Kate Penn MD [address] [place] [address] Scheduled Orders Name Type Priority Associated Diagnoses Orde r Schedule Culture, Urine, Routine Microbiology Routine Acute cystitis with hematuria Ordered: 03/04/2025 documented as of this encounter Visit Diagnoses Diagnosis Constipation, unspecified constipation type- Primary Acute cystitis with hematuria documented in this encounter Additional Health Concerns Assessment Noted Time PHQ-9 Depression Total Score: 19 025 11:08 AM EDT documented as of this encounter Care Teams Masonry Supervisor Relationship Specialty Start Date End Date Kate Penn MD [address] [place] [address] PCP - General Family Medicine 03/21/13 documented as of this encounter
--- OUTSIDE RECORDS SUMMARY | 2025-03-04 14:01 | XMS_ITS | Encounter Summary ---
Author Organization [employer] Address [address] [place] [address] Care Team Providers Care Loom Fixer Name Role Phone Kate Penn MD Primary Care Provider [phone] Reason for Referral * Chiropractic (Routine) - Closed Specialty Diagnoses / Procedures Referred By Mariluz duval Referred To Contact Chiropractic Medicine Diagnoses Chronic low back pain, unspecified back pain laterality, unspecified whether sciatica present Kate Penn MD [address] [place] [address] Phone: tel: fax: [facility] [address] [place] [address] Phone: tel: fax: Referral ID Status Reason Start Date Expiration Date V isits Requested Visits Authorized [id number] Closed Specialty Services Required 11/11/2023 11/10/2024 20 20 Encounter Details Date Type Department Care Team (Late st Contact Info) Description 11/06/2023 Orders Only [facility] [address] [place] [address] Kate Penn MD [address] [place] [address] [phone] Chronic low back pain, unspecified back pain [...] Description 03/23/2025 10:00 AM EDT Office Visit [facility] [address] [place] [address] Kate Penn MD [address] [place], [place] [phone] Scheduled Referrals Name Type Priority Associated Diagnoses [...] documented as of this encounter Care Teams Loom Fixer Relationship Specialty Start Date End Date Kate Penn MD [address] [place] [phone] PCP - General Family Medicine 03/21/13 documented as of this encounter
--- OUTSIDE RECORDS SUMMARY | 2025-03-04 14:01 | XMS_ITS | Encounter Summary ---
Author Organization [employer] Address [address] [facility] 7t [place] [address] Care Team Providers Care Hydroponics Grower Name Role Phone Kate Penn MD Primary Care Provider [phone] Encounter Details Date Type Department Care Team ([facility] Contact Info) Description 12/17/2024 Orders Only [facility] [address] [place] [address] Kate Penn MD [address] [place] [address] Social History Tobacco Use Types Packs/Day Years [...] Description 03/23/2025 10:00 AM EDT Office Visit [facility] [address] [place] [address] Kate Penn MD [address] [place] [address] documented as of this encounter Visit Diagnoses Not on filedocumented in this encounter Additional Health Concerns Assessment Noted Time PHQ-9 Depression Total Score: 19 025 11:08 AM EDT documented as of this encounter Care Teams Hydroponics Grower Relationship Specialty Start Date End Date Kate Penn MD [address] [place] [phone] PCP - General Family Medicine 03/21/13 documented as of this encounter
--- OUTSIDE RECORDS SUMMARY | 2025-03-04 14:01 | XMS_ITS | Encounter Summary ---
Author Organization [employer] Address [address] [facility] 7t [place] [address] Care Team Providers Care Diecast Machine Operator Name Role Phone Kate Penn MD Primary Care Provider [phone] Encounter Details Date Type Department Care Team ([facility] Contact Info) Description 10/15/2023 Orders Only [facility] [address] [place], [place] [phone] Kate Penn MD [address] [place], [place] [phone] Acquired hypothyroidism (Primary Dx) Social History Tobacco [...] Description 03/23/2025 10:00 AM EDT Office Visit [facility] [address] [place] [address] Kate Penn MD [address] [place] [address] documented as of this encounter Procedures Procedure Name Priority Date/Time Associated Diagnosis Comments TSH Routine 03/07/2024 1:05 PM EDT Acquired hypothyroidism T4, FREE Routine 03/07/2024 1:05 PM EDT Acquired hypothyroidism documented in this encounter Results * T4, Free (03/07/2024 1:05 PM EDT) Free T4 (Free Thyroxine) 1.15 0.71 - 1.85 ng/dL [facility] Blood Venous blood specimen / Unknown 03/07/2024 1:05 PM EDT 03/07/2024 4:37 PM EDT us Kate Penn MD LAB BLOOD ORDERABLES Final Resul t [facility] [address] [place] [address] [phone] * TSH (03/07/2024 1:05 PM EDT) Thyroid Stimulating Hormone 0.75 0.32 - 4.0 uIU/mL [facility] Comment:TSH 3rd Generation ( [facility]) Blood Venous blood specimen / Unknown 03/07/2024 1:05 PM EDT 03/07/2024 4:37 PM EDT Kate Penn MD LAB BLOOD ORDERABLES Final Resul t [facility] [address] [place] [address] [phone] documented in this encounter Visit Diagnoses Diagnosis Acquired hypothyroidism- Primary Unspecified hypothyroidism documented in this encounter Additional Health Concerns Assessment Noted Time PHQ-9 Depression Total Score: 7 04/14/20 23 1:37 PM EST documented as of this encounter Care Teams Diecast Machine Operator Relationship Specialty Start Date End Date Kate Penn MD [address] [place] [phone] PCP - General Family Medicine 03/21/13 documented as of this encounter
--- OUTSIDE RECORDS SUMMARY | 2025-03-04 14:01 | XMS_ITS | Encounter Summary ---
Author Organization [employer] Address [address] [facility] 7 [place] [address] Care Team Providers Care Loom Operator Name Role Phone Kate Penn MD Primary Care Provider [phone] Reason for Visit * Reason Onset Date Comments Med Refill 12/26/2024 Encounter Details Date Type Department Care Team (Late st Contact Info) Description 12/26/2024 Refill [facility] [address] [place] [address] Kate Penn MD [address] [place], [place] [phone] Social History Tobacco Use Types Packs/Day Years [...] Description 03/23/2025 10:00 AM EDT Office Visit [facility] [address] [place] [address] Kate Penn MD [address] [place] [address] documented as of this encounter Visit Diagnoses Not on filedocumented in this encounter Additional Health Concerns Assessment Noted Time PHQ-9 Depression Total Score: 19 025 11:08 AM EDT documented as of this encounter Care Teams Loom Operator Relationship Specialty Start Date End Date Kate Penn MD [address] [place] [phone] PCP - General Family Medicine 03/21/13 documented as of this encounter
--- OUTSIDE RECORDS SUMMARY | 2025-03-04 14:01 | XMS_ITS | Clinical Summary ---
Author Organization [facility] Address [address] [place] [address] Phone Care Team Providers Care Qualitative Researcher Name Role Phone Unavailable Primary Care Provider [...] Care Team (Late st Contact Info) Description 05/09/2025 2:30 PM EST Appointment [facility] Xray [address] [place] [address] Health Maintenance Due Date Last Done Comments Breast Cancer Screening 1973 DTaP,Tdap,and Td Vaccines (1 - Tdap) 1992 Hepatitis B Vaccines (1 of 3 - 19+ 3-dose series) 1992 Cervical Cancer Screening: P ap Smear 1994 Pneumococcal Vaccine: 50+ Ye ars (1 of 1 - PCV) 2023 Zoster Vaccines (1 of 2) 2023 Depression Screening 06/08/2024 Colorectal Cancer Screening: Colonoscopy 10/31/2024 HIV Screening 10/31/2024 Hepatitis C Screening 10/31/2024 Social Influencers of Health Screening 10/31/2024 COVID-19 Vaccine ( - 2023-2 5 season) 2025 Influenza Vaccine (#1) 2025 RSV Immunization Adult Patie nts (1 - 1-dose 75+ series) 2048 HIB Vaccines Aged Out No longer eligi [...]
--- OUTSIDE RECORDS SUMMARY | 2025-03-04 14:01 | XMS_ITS | Encounter Summary ---
Author Organization [employer] Address [address] [address] Care Team Providers Care Lead Press Operator Name Role Phone Kate Penn MD Primary Care Provider Encounter Details Date Type Department Care Team ([facility] Contact Info) Description 06/05/2022 Orders Only [facility] [address] [place] [address] [phone] Kate Penn MD [address] [place] [address] [phone] Mild intermittent asthma without complication (Primary Dx) [...] Upcoming Encounters Date Type Department Care Team ([facility] Contact Info) Description 03/23/2025 10:00 AM EDT Office Visit [facility] [address] [place] [address] [phone] Kate Penn MD [address] [place] [address] [phone] documented as of this encounter Visit Diagnoses Diagnosis Mild intermittent asthma without complication- Primary documented in this encounter Care Teams Lead Press Operator Relationship Specialty Start Date End Date Kate Penn MD [address] [place] [address] PCP - General Family Medicine 03/21/13 documented as of this encounter
--- OUTSIDE RECORDS SUMMARY | 2025-03-04 14:01 | XMS_ITS | Encounter Summary ---
Author Organization [employer] Address [address] [facility] 7 [place] [address] Care Team Providers Care Toolroom Machinist Name Role Phone Kate Penn MD Primary Care Provider Encounter Details Date Type Department Care Team ([facility] Contact Info) Description 09/02/2024 Orders Only [facility] [address] [place], [place] [phone] Kate Penn MD [address] [place], [place] [phone] Elevated anti-tissue transglutaminase (tTG) IgA level (Primary [...] Description 03/23/2025 10:00 AM EDT Office Visit [facility] [address] [place], [place] [phone] Kate Penn MD [address] [place] [address] documented as of this encounter Procedures Procedure [...] 11:22 AM EDT) Creatinine, Urine 72.87 mg/dL [facility] Microalbumin Urine <5.0 mg/L [facility] Microalbum Creatinine Ratio Ur TNP <30 ug/mg cr [facility] Comment:Unable to calculate albumin/creatinine ratio due to lowmicroalbumin or creatinine result. Urine 09/06/2024 11:2 2 AM EDT 09/06/2024 1:02 PM EDT us Kate Penn MD LAB URINE ORDERABLES Final Resul t [facility] [address] [place] [phone] * (ABNORMAL) Urinalysis, Complete, with Reflex to Culture (09/06/2024 11:22 AM EDT) Color Urine Yellow [facility] Appearance Urine Clear [facility] PH 6.0 5.0 - 9.0 [facility] Glucose Urine UA Negative Negative mg/dL [facility] Urine Blood Small (1+)(A) Negative [facility] Specific [place] - Urine 1.015 1.005 - 1.025 [facility] Urine Protein Negative Neg-Trace mg/dL [facility] Urine Ketones Negative Negative mg/dL [facility] Nitrite Urine Negative Negative [facility] Leukocyte Esterase Urine Trace(A) Negative [facility] RBC Urine 0-2 0 - 2 /HPF [facility] Urine WBC 6-10 0 - 5 /HPF [facility] Urine Squamous Epithelial Cell 3-5 0 - 2 /HPF [facility] Urine Bacteria None Seen None Seen [facility] Hyaline Casts, Urine 0-2 0 - 2 /LPF [facility] Urine 09/06/2024 11:2 2 AM EDT 09/06/2024 1:02 PM EDT Narrative [facility] - 09/06/2024 1:32 PM EDT Urine, Clean Catch us Kate Penn MD LAB URINE ORDERABLES Final Resul t Performing Organization Address [facility] Co de Phone Number [facility] [address] [place] [address] [phone] * (ABNORMAL) Lactate Dehydrogenase (LD) (09/06/2024 11:22 AM EDT) Lactate Dehydrogenase 221(H) 122 - 220 U/L [facility] Blood Venous blood specimen / Unknown 09/06/2024 11:22 AM EDT 09/06/2024 1:13 PM EDT us Kate Penn MD LAB BLOOD ORDERABLES Final Resul t Performing Organization Address [facility] Co de Phone Number [facility] [address] [place] [phone] [phone] * (ABNORMAL) Comprehensive Metabolic Panel (09/06/2024 11:22 AM EDT) Sodium 142 135 - 145 mmol/L [facility] Potassium 4.0 3.3 - 5.1 mmol/L [facility] Chloride 109(H) 96 - 108 mmol/L [facility] Carbon Dioxide 27 22 - 29 mmol/L [facility] Anion Gap 10(L) 12 - 20 [facility] Urea Nitrogen (BUN) 14 9 - 16 mg/dL [facility] Creatinine, Serum 0.98 0.5 - 1.4 mg/dL [facility] Estimated Glomerular Filt Rate 60 [facility] Comment:Chronic Kidney Disea se: Estimated GFR < 60 mL/min/1.17q4Vllutg Kidney Disease: Estimated GFR < 15 mL/min/1.73m2 Glucose 103 60 - 115 mg/dL [facility] Calcium 9.4 8.4 - 10.2 mg/dL [facility] Bilirubin, Total 0.3 0.0 - 1.0 mg/dL [facility] Aspartate Amino Transferase 24 5 - 31 U/L [facility] Alanine Aminotransferase 29 0 - 31 U/L [facility] Total Protein 7.5 6.5 - 8.0 g/dL [facility] Albumin Level 3.9 3.5 - 5.0 g/dL [facility] Alkaline Phosphatase 63 39 - 117 U/L [facility] Blood Venous blood specimen / Unknown 09/06/2024 11:22 AM EDT 09/06/2024 1:13 PM EDT Kate Penn MD LAB BLOOD ORDERABLES Final Resul t Performing Organization Address City/State/[facility] Co de Phone Number [facility] [address] [place] [phone] documented in this encounter Visit Diagnoses Diagnosis 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
--- OUTSIDE RECORDS SUMMARY | 2025-03-04 14:01 | XMS_ITS | Encounter Summary ---
Author Organization [employer] Address [address] [facility] 7t [place] [address] Care Team Providers Care Radio Sales Account Executive Name Role Phone Kate Penn MD Primary Care Provider [phone] Encounter Details Date Type Department Care Team ([facility] Contact Info) Description 09/07/2024 Orders Only [facility] [address] [place] [address] Kate Penn MD [address] [place] [address] Social History Tobacco Use Types Packs/Day Years [...] Description 03/23/2025 10:00 AM EDT Office Visit [facility] [address] [place] [address] Kate Penn MD [address] [place] [phone] documented as of this encounter Visit Diagnoses Not on filedocumented in this encounter Additional Health Concerns Assessment Noted Time PHQ-9 Depression Total Score: 19 025 11:08 AM EDT documented as of this encounter Care Teams Radio Sales Account Executive Relationship Specialty Start Date End Date Kate Penn MD [address] [place] [phone] PCP - General Family Medicine 03/21/13 documented as of this encounter
--- OUTSIDE RECORDS SUMMARY | 2025-03-04 14:01 | XMS_ITS | Clinical Summary ---
Author Organization [employer] Address [address] [facility] 7t [place] [address] Care Team Providers Care Trophy Assembler Name Role Phone Kate Penn MD Primary Care Provider [phone] Allergies No known active allergies Medications LORazepam (Ativan) 0.5 MG tablet Take 1 tablet by mouth if needed at bedtime. Active sodium chloride ([place]ull) 0.65 % nasal spray Use intranasally to moisten nose and/or before & after blowing nose, as needed / [facility] 11/30/19 20 Active Witch Anali (Medicated Pads) 50 % pads Apply topically in the morning. 10/11/19 22 Active Diclofenac Sodium 1 % gel Apply to affected area once or twice daily as needed for pain 150 g 3 10/15/19 24 Active Additional Information Patient not taking.Reported on 02/16/2025 Lidoderm 5 % patch APPLY 1-2 PATCHES TO SKIN EVERY DAY NEEDED FOR PAIN. MAY LEAVE ON UP TO 12 HOURS THEN REMOVE POR 12 HOURS 60 patch 2 03/16/20 24 Active levothyroxine (Synthroid, Levoxyl) 100 MCG tablet TAKE 1 TABLET BY MOUTH EVERY DAY 90 tablet 3 10/12/19 25 Active budesonide-formo terol (Symbicort) 80-4.5 MCG/ACT inhaler Inhale 2 puffs in the morning and at bedtime. Take 1 or 2 puffs as needed for asthma symptoms. Rinse mouth with water after use to reduce aftertaste and incidence of candidiasis. Do not swallow. 1 each 3 12/06/19 25 026 Active montelukast (Singulair) 10 MG tablet Take 1 tablet (10 mg) by mouth at bedtime. 90 tablet 3 12/06/19 Active Additional Information Patient not taking.Reported on 02/16/2025 SUMAtriptan (Imitrex) 50 MG tabletIndication s:Migraine without aura and without status migrainosus, not intractable Take 1 tablet (50 mg) by mouth 1 (one) time if needed for migraine. May repeat dose once in 2 hours if no relief. Do not exceed 2 doses in 24 hours. 10 tablet 1 12/06/19 25 Active Additional Information Patient not taking.Reported on 02/16/2025 cyclobenzaprine (Flexeril) 5 MG tablet TAKE 1 OR 2 TABLETS BY MOUTH THREE TIMES DAILY NEEDED FOR BACK PAIN 45 tablet 3 12/06/19 Active Additional Information Patient not taking.Reported on 02/16/2025 omeprazole (PriLOSEC) [address] capsule Take 1 capsule (20 mg) by mouth before breakfast. Do not crush or chew. 90 capsule 3 12/06/19 Active ibuprofen 600 MG tablet Take 600 mg by mouth every 8 (eight) hours if needed for mild pain, fever, headaches or moderate pain. Active fexofenadine (Yee) 180 MG tablet Take 1 tablet (180 mg) by mouth Once per day. 90 tablet 3 12/18/19 25 Active Nirmatrelvir&Rit onavir 300/100 (Paxlovid, 300/100,) 20 x 150 MG & 10 x 100MG tablet therapy packIndications: COVID-19 Take 1 Dose by mouth at noon and 1 Dose in the evening. 30 each 02/17/20 25 Active fluticasone (Flonase) 50 MCG/ACT nasal sprayIndications :COVID-19 Administer 1-2 sprays into each nostril Once per day. Shake gently. Before first use, prime pump. After use, clean tip and replace cap. Sent refills by insurance request but pt does not need refills only use for 154 to 21 days for acute sinusitis 16 g 2 02/17/20 25 026 Active escitalopram (Lexapro) 10 MG tablet Take 10 mg by mouth at bedtime. 01/20/20 25 Active sulfamethoxazole -trimethoprim (Bactrim DS) 800-160 MG tabletIndication s:Acute cystitis with hematuria Take 1 tablet by mouth 2 times daily for 5 days. 10 tablet 03/04/20 25 025 Active polyethylene glycol, PEG, 3350 (MiraLax) 17 GM/SCOOP powderIndication s:Constipation, unspecified constipation type 17 grams in 8-12 oz fluid like water at bedtime prn constipation 527 g 03/04/20 25 Active hydrocortisone 1 % cream Apply topically every 12 (twelve) hours. 10/11/19 22 025 Discontin ued(Thera py completed ) hydrocortisone 2.5 % ointment Apply topically at bed time. 09/22/19 20 025 Discontin ued(Thera py completed ) Hydrocortisone, Perianal, 1 % cream APPLY A THIN LAYER TO AFFECTED AREA(S) 2 TO 3 TIMES PER DAY 10/11/19 22 025 Discontin ued(Thera py completed ) escitalopram (Lexapro) 5 MG tablet Take 5 mg by mouth at bedtime. 08/29/19 23 025 Discontin ued(Thera py completed ) fluticasone (Flonase) 50 MCG/ACT nasal spray INSTILL 1 SPRAY IN EACH NOSTRIL ONCE DAILY 48 g 01/06/20 24 025 Discontin ued(Thera py completed ) estradiol (Climara) 0.025 MG/24HR Place 1 patch on the skin 1 (one) time per week. 4 patch 11 04/20/20 24 025 Discontin ued(Thera py completed ) Active Problems Problem Noted Date Diagnosed Date COVID-19 02/19/2025 Assessment & Plan (02/19/2025 3:16 AM EDT): Today here in office COVID 19 + ,Flu neg CBC 08/2024 wnl,Chem 09/2024 wnl Symptoms from viral infection including diarrhea ,dark stools seems associated w peptobismol w no other alarming symptoms Has also symptoms of possible sinusitis non complicated Pt has asthma and obesity as risk factors -within window x tx -normal renal function from last labs -Px paxlovid today -pxed today Flonase to use for 3-4 weeks -supportive tx w tylenol PRN and explainde to avoid NSAIDS -Ibuprofen,if needed to take w food and no more than 3 times a day -hydration -isolation x at least 5 days -explained can return to work on day 6 but with N95 for at least 10 days from infection. -alarm signs and symptoms discussed -advised that once is feeling better should get COVID 19 vaccine Elevated BP without diagnosis of hypertension Assessment & Plan (02/19/2025 3:16 AM EDT): BP elevated today maybe from infection and ARANDA -advised pt To bring home BP readings to next apt w PCP next month on 04/02/2025 Assessment & Plan (12/05/2024 1:30 PM EDT): [...] (12/05/2024 1:35 PM EDT): - Seen by supervisor plastering - Head up tilt table test is [...] (12/05/2024 1:31 PM EDT): - seen by supervisor plastering on 10/30/24 for syncopal episode. Likely vasovagal. - upcoming appointment for head up tilt table test. Assessment & Plan (08/29/2024 12:11 PM EDT): -Reported home BP low but normal; higher in the clinic -Pt was advised to bring her BP monitor so that we can check that the machine is functioning normally -Pt has upcoming appointment with supervisor plastering in October Assessment & Plan (07/21/2024 4:08 [...] and escitalopram - Current [facility] provider is ETHAN -Pt has labile mood possibly due to menopause -Continue current treatment plan -Pt requests POPCORN MACHINE OPERATOR service so that someone can stay with her during the day -Recommended day program previously Assessment & Plan (08/29/2024 12:15 PM EDT): - Currently receiving lorazepam and escitalopram - Current [facility] provider is RVC -Pt has labile mood possibly due to menopause -Continue current treatment plan -Pt requests POPCORN MACHINE OPERATOR service so that someone can stay with [...] and escitalopram - will check her current [facility] provider and treatment plan Allergic rhinitis [...] Encounters Date Type Department Care Team Description 03/04/2025 12:40 PM EDT Office Visit [facility] [address] [place] [address] Constipation, unspecified constipation type (Primary Dx); Acute cystitis with hematuria 03/04/2025 Travel 02/24/2025 1:00 PM EDT Office Visit [facility] [address] [place] [address] Jared, Nuha, OD 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); Combined forms of age-related cataract of both eyes; Presbyopia 02/24/2025 Travel 02/16/2025 3:00 PM EDT Office Visit [facility] [address] [place] [address] Elida Whitlock MD COVID-19 (Primary Dx); Elevated BP without diagnosis of hypertension 02/16/2025 Travel 02/16/2025 Telephone [facility] [address] [place] [address] Kate Penn MD Nurse Triage 01/04/2025 2:30 PM EDT Clinical Support [facility] [address] [place] [address] Lena Orozco, GENARO Elevated BP without diagnosis of hypertension 01/04/2025 Travel 12/26/2024 Refill [facility] [address] [place] [address] Kate Penn MD 12/17/2024 Orders Only [address] [address] Kate Penn MD 12/05/2024 1:00 PM EDT Office Visit [facility] [address] [place] [address] Kate Penn MD Hypotension, unspecified hypotension type (Primary Dx); Elevated BP without diagnosis of hypertension; Acquired hypothyroidism; Mixed anxiety and depressive disorder; Mild intermittent asthma without complication; Syncope, unspecified syncope type; Migraine without aura and without status migrainosus, not intractable 12/05/2024 Travel 12/02/2024 Telephone [facility] [address] [place] [address] Kate Penn MD chart prep from Last [...] (177 lb) 03/04/2025 12:37 PM EDT Height 160 cm (5' 3 ) 02/16/2025 3:11 PM EDT Body Mass Index 31.35 02/16/2025 3:11 PM EDT Plan of Treatment Upcoming Encounters Date Type Department Care Team (Late st Contact Info) Description 03/23/2025 10:00 AM EDT Office Visit [facility] [address] [place] [address] Kate Penn MD [address] [place] [address] Health Maintenance Due Date Last Done Comments CT Colonography 1975 Colonoscopy 1975 Colorectal Cancer Screening 1975 FIT DNA/Cologuard 1975 FIT 1975 FOBT 1975 Sigmoidoscopy 1975 Family Planning (PISQ) 1988 Pap Smear 1994 Zoster Vaccines (1 of 2) 2023 COVID-19 Vaccine ( season) 2025 Influenza Vaccine (#1) 2025 , 04/14/2023, 03/09/2018, Additional history exists Alcohol/Substance Use Screening 03/07/2025 03/07/2024 Depression Monitoring 06/06/2025 12/05/2024, 025 SDOH Screening 08/29/2025 08/29/2024 Mammogram 10/04/2025 10/05/2023, 06/10, 07/07/2022, Additional history exists Disability Screening 12/05/2025 12/05/2024 Tobacco Screening 02/24/2026 02/24/2025 Cervical Cancer Screening 06/24/2026 HPV/Cotest 06/24/2026 06/24/2021, [...] Procedure Name Priority Date/Time Associated Diagnosis Comments POCT INFLUENZA B (ID NOW RAPID MOLECULAR) Routine 02/16/2025 3:46 PM EDT COVID-19 POCT INFLUENZA A (ID NOW RAPID MOLECULAR) Routine 02/16/2025 3:46 PM EDT COVID-19 POCT COVID-19 AG PIEDRA ID NOW Routine 02/16/2025 3:45 PM EDT COVID-19 HEPATITIS C AB W/REFL TO HCV RNA, [...] Recently Relevant to Health Maintenance Results * POCT Rapid Influenza B PIEDRA ID NOW (02/16/2025 3:46 PM EDT) Pathologist [facility] Influenza B Negative Negative, Indeterminate [facility] QC Media Lot # [id number] [facility] Lot# Expiration Date [facility] Swab 02/16/2025 3:46 PM EDT Elida Estrella MD POINT OF CARE REEMA T ENTER/EDIT ORDERABLES Final Result Performing Organization Address [facility] Co de Phone Number [facility] [address] [place] [phone] * POCT Rapid Influenza A PIEDRA ID NOW (02/16/2025 3:46 PM EDT) [facility] Influenza A Negative Negative, Indeterminate [facility] QC Media Lot # [id number] [facility] Lot# Expiration Date [facility] Swab 02/16/2025 3:46 PM EDT Elida Estrella MD POINT OF CARE REEMA T ENTER/EDIT ORDERABLES Final Result Performing Organization Address City/[facility]/ZIP Co de Phone Number [facility] [address] [place] [phone] * (ABNORMAL) POCT Rapid Covid-19 PIEDRA ID NOW (02/16/2025 3:45 PM EDT) Pathologist [facility] Coronavirus Antigen PCR Positive (A) Negative, Indeterminate, None Detected, Invalid, Specimen unsatisfactory for evaluation, Weakly Positive, 2+ QC Media Lot # [id number] Lot# Expiration Date ,0 26 Swab 02/16/2025 3:45 PM EDT us Elida Estrella MD POINT OF CARE REEMA T ENTER/EDIT ORDERABLES Final Result * (ABNORMAL) Lipid Panel with Reflex to Direct LDL (10/15/2023 11:32 AM EDT) Triglycerides 126 <150 mg/dL [facility] Comment:Desirable Triglyceri de: less than 150 mg/dLBorderline High Triglyceride 150-199 mg/dLHigh Triglyceride: 200-499 mg/dLVery High Triglyceride: greater than or equal to 5OO mg/dL Cholesterol 177 <200 mg/dL [facility] Comment:Desirable Cholestero l: less than 200 mg/dLBorderline High Cholesterol: 200-239 mg/dLHigh Cholesterol: greater than 239 mg/dL LDL Cholesterol Calculated 101(H) <100 mg/dL [facility] Comment:Desirable LDL: less than 100 mg/dLNear Optimal/Above Optimal LDL: 110- 129 mg/dLBorderline High LDL: 130-159 mg/dLHigh LDL: 160-189 mg/dLVery High LDL: greater than or equal to 190 mg/dL HDL Cholesterol 51 >40 mg/dL [facility] Comment:Desirable HDL: great er than 40 mg/dL Note: This HDL assay may give artificially low results in patients with liver disease. Blood 10/15/2023 11:3 2 AM EDT 10/15/2023 1:19 PM EDT us Kate Penn MD LAB BLOOD ORDERABLES Final Resul t [facility] [address] [place] [phone] * Hepatitis C Antibody with Reflex to HCV, RNA, Quantitative, Real-Time PCR (10/15/2023 11:32 AM EDT) Hepatitis C Antibody Nonreactive Nonreactive [facility] Comment:Antibodies to HCV no t detected; does not exclude early acuteHCV infection. Blood Venous blood specimen / Unknown 10/15/2023 11:32 AM EDT 10/15/2023 1:19 PM EDT us Kate Penn MD LAB BLOOD ORDERABLES Final Resul t Performing Organization Address [facility] Co de Phone Number [facility] [address] [place] [phone] * HIV-1/2 Antigen and Antibodies, Fourth Generation, with Reflexes (10/15/2023 11:32 AM EDT) HIV AB/AG Nonreactive Nonreactive [facility] Comment:HIV-1 p24 Ag and/or HIV-1/HIV-2 Ab not detected.A test result that is nonreactive does not exclude thepossibility of exposure to or infection with HIV-1 and/orHIV-2. Nonreactive results in this assay for individualswith prior exposure to HIV-1 and/or HIV-2 may be due toantigen and antibody levels that are below the limit ofdetection of this assay.The Tile HIV Ag/Ab Combo assay result andsupplemental assay results should be interpreted inconjunction with the patient's clinical presentation,history and other laboratory results. If the results areinconsistent with clinical evidence, additional testing issuggested to confirm the result. Blood Venous blood specimen / Unknown 10/15/2023 11:32 AM EDT 10/15/2023 1:19 PM EDT us Kate Penn MD LAB BLOOD ORDERABLES Final Resul t Performing Organization Address [facility] Co de Phone Number [facility] [address] [place] [phone] [phone] * BI Mammogram Screening Tomosynthesis Bilateral (10/05/2023 9:00 AM EDT) Anatomical Region Laterality Modality Breast Bilateral Mammography 10/05/2023 9:00 AM EDT Narrative 11/01/2023 6:29 AM EDT [facility] [address] [place] [address] Mammography Report Signed Patient: Elida Putnam MR#: [id number] : 1975 Acct:[id number] Age/Sex: 48 / F ADM Date: 10/05/23 Loc: [facility] Attending Dr: Kate Penn MD Ordering Physician: Kate Penn MD Results: 1Negative Date of Service: 10/05/23 Follow Up: 1 Year From Orig inal Mammogram Procedure(s): MM tomosynthesis screening BI Accession Number(s): [id number] cc: Kate Penn MD EXAMINATION: MM SCREENING [...] in OV> 11/01/23 0625 DD/ 0900 TD/TT: Manager [employer]: Procedure Note Donotuseinterpreter, Image - 11/01/2023 [facility] [address] [place] [address] [place] [address] Mammography Report Signed Patient: Elida Putnam DMR#: [id number] : 1975Acct:[id number] Age/Sex: 48 / FADM Date: 10/05/23 Loc: HO.MAMMO Attending Dr: Kate Penn MD Ordering Physician: Kate Penn MDResults: 1Negative Date of Service: 10/05/23Follow Up: 1 Year From [facility] Mammogram Procedure(s): MM tomosynthesis screening BI Accession Number(s): [id number] cc: Kate Penn MD EXAMINATION: MM SCREENING [...] in OV> 11/01/23 0625 DD/ 0900 TD/TT: Manager Intel: Kate Penn MD [facility] BI PROCEDURES Final Result * HPV E6/E7 RFLX LEEANN 16 18/45 (06/24/2021 12:11 PM EST) HPV 16 RNA [facility] HPV 18/45 RNA [facility] HPV E6 E7 ADD [facility] HPV mRNA E6/E7 rflx Not Detected Not Detected [facility] Comment: Methodology: Certified Lactation Counselor-Mediated Amplification This assay detects E6/E7 viral messenger RNA (mRNA) from 14 high-risk HPV types (16,18,31,33,35,39,45,51,52,56,58,59,66,68). The analytical performance characteristics of this assay have been determined by [employer]. The modifications have not been cleared or approved by the FDA. This assay has been validated pursuant to the CLIA regulations and is used for clinical purposes. For additional information, please refer to http://education.[employer]/faq/SYF264t2 (This link if provided for information/ educational purposes only.) THIS TEST WAS PERFORMED AT: [facility] [address] [place] [address] [address],[place] [phone] ISIDRO AVILA MD 06/24/2021 12:1 1 PM EST Rene Dumont MD HISTORICAL/NON ORDERABLE LABS Fi nal Result [facility] [address] from Last 3 Months or Most Recently Relevant to Health Maintenance Insurance [employer] C3 Care Teams Trophy Assembler Relationship Specialty Start Date End Date Kate Penn MD [address] [place] [address] PCP - General Family Medicine 03/21/13
--- OUTSIDE RECORDS SUMMARY | 2025-03-04 14:01 | XMS_ITS | Encounter Summary ---
Author Organization [employer] Address [address] [facility] 7t [place] [address] Care Team Providers Care Set Up Operator Tool Name Role Phone Kate Penn MD Primary Care Provider [phone] Encounter Details Date Type Department Care Team ([facility] st Contact Info) Description 05/06/2023 Orders Only [facility] [address] [place], [place] [phone] Kate Penn MD [address] [place], [place] [phone] Chronic low back pain, unspecified back pain [...] Description 03/23/2025 10:00 AM EDT Office Visit [facility] [address] [place] [address] Kate Penn MD [address] [place] [address] documented as of this encounter Visit Diagnoses Diagnosis Chronic low back pain, unspecified back pain laterality, unspecified whether sciatica present- Primary documented in this encounter Additional Health Concerns Assessment Noted Time PHQ-9 Depression Total Score: 7 04/14/20 23 1:37 PM EST documented as of this encounter Care Teams Set Up Operator Tool Relationship Specialty Start Date End Date Kate Penn MD [address] [place] [phone] PCP - General Family Medicine 03/21/13 documented as of this encounter
--- OUTSIDE RECORDS SUMMARY | 2025-03-04 14:01 | XMS_ITS | Encounter Summary ---
Author Organization [employer] Address [address] [facility] 7 [place] [address] Care Team Providers Care Craft Demonstrator Name Role Phone Kate Penn MD Primary Care Provider [phone] Reason for Visit * Reason Onset Date Comments Created in error 12/16/2023 Encounter Details Date Type Department Care Team ([facility] st Contact Info) Description 12/16/2023 Telephone [facility] [address] [place], [place] [phone] Kate Penn MD [address] [place], [place] [phone] Created in error Social History Tobacco Use [...] Description 03/23/2025 10:00 AM EDT Office Visit [facility] [address] [place] [address] Kate Penn MD [address] [place] [address] documented as of this encounter Visit Diagnoses Not on filedocumented in this encounter Additional Health Concerns Assessment Noted Time PHQ-9 Depression Total Score: 7 04/14/20 23 1:37 PM EST documented as of this encounter Care Teams Craft Demonstrator Relationship Specialty Start Date End Date Kate Penn MD [address] [place] [phone] PCP - General Family Medicine 03/21/13 documented as of this encounter
--- OUTSIDE RECORDS SUMMARY | 2025-03-04 14:01 | XMS_ITS | Encounter Summary ---
Author Organization [employer] Address [address] [facility] [address] [place] [address] Care Team Providers Care Product/Industry Consultant Name Role Phone Kate Penn MD Primary Care Provider [phone] Encounter Details Date Type Department Care Team (Latest Contact Info) Description 03/04/2025 Travel Social History Tobacco Use Types Packs/Day Years [...] Description 03/23/2025 10:00 AM EDT Office Visit [facility] [address] [place] [phone] Kate Penn MD [address] [place] [address] documented as of this encounter Visit Diagnoses Not on filedocumented in this encounter Additional Health Concerns Assessment Noted Time PHQ-9 Depression Total Score: 19 025 11:08 AM EDT documented as of this encounter Care Teams Product/Industry Consultant Relationship Specialty Start Date End Date Kate Penn MD [address] [place] [phone] PCP - General Family Medicine 03/21/13 documented as of this encounter
--- OUTSIDE RECORDS SUMMARY | 2025-03-04 14:01 | XMS_ITS | Encounter Summary ---
Author Organization [employer] Address [address] [facility] 7 [place] [address] Care Team Providers Care Multiplex Operator Name Role Phone Kate Penn MD Primary Care Provider [phone] Reason for Visit * Reason Onset Date Comments Med Refill 03/08/2024 Encounter Details Date Type Department Care Team (Late st Contact Info) Description 03/08/2024 Refill [facility] [address] [place] [address] Kate Penn MD [address] [place], [place] [phone] Social History Tobacco Use Types Packs/Day Years [...] Description 03/23/2025 10:00 AM EDT Office Visit [facility] [address] [place] [address] Kate Penn MD [address] [place] [address] documented as of this encounter Visit Diagnoses Not on filedocumented in this encounter Additional Health Concerns Assessment Noted Time PHQ-9 Depression Total Score: 11 024 11:55 AM EDT documented as of this encounter Care Teams Multiplex Operator Relationship Specialty Start Date End Date Kate Penn MD [address] [place] [phone] PCP - General Family Medicine 03/21/13 documented as of this encounter
== END 2025-03-04 13:59 | disposition home or self-care (01) ==
LOC: HO.HHCLNP 13:58
PROVIDERS: Visit Provider Family Medicine
DX: R30.0 Dysuria (principal)
CPT/HCPCS: 87086; 87088; 87147; 87186

== ENCOUNTER 2025-05-03 11:00 | Outpatient (REF) | payer MEDICAID, SELFPAY ==
[2025-05-03 12:21] LABS: Anion Gap 11 (12-20); Blood Urea Nitrogen 16 mg/dL (9-16); Calcium 9.6 mg/dL (8.4-10.2); Carbon Dioxide 24 mmol/L (22-29); Chloride 108 mmol/L (96-108); Estimated Glomerular Filt Rate 56; Potassium 4.8 mmol/L (3.3-5.1); Sodium 138 mmol/L (135-145)
--- OUTSIDE RECORDS SUMMARY | 2025-05-03 13:38 | XMS_ITS | Encounter Summary ---
Author Organization [employer] Address [address] [facility] 7 [place] [address] Care Team Providers Care Aviation Metalsmith Name Role Phone Kate Penn MD Primary Care Provider [phone] Reason for Visit * Reason Onset Date Comments Med Refill 03/08/2024 Encounter Details Date Type Department Care Team (Late st Contact Info) Description 03/08/2024 Refill [facility] [address] [place] [address] Kate Penn MD [address] [place], [place] [phone] Social History Tobacco Use Types Packs/Day Years [...] Care Team (Late st Contact Info) Description 05/30/2025 1:30 PM EST Office Visit [facility] [address] [place] [phone] Kate Penn MD [address] [place] [phone] documented as of this encounter Visit Diagnoses Not on filedocumented in this encounter Additional Health Concerns Assessment Noted Time PHQ-9 Depression Total Score: 11 024 11:55 AM EDT documented as of this encounter Care Teams Aviation Metalsmith Relationship Specialty Start Date End Date Kate Penn MD [address] [place] [phone] PCP - General Family Medicine 03/21/13 documented as of this encounter
--- OUTSIDE RECORDS SUMMARY | 2025-05-03 13:38 | XMS_ITS | Encounter Summary ---
Author Organization [email or web address] Address 75 [facility] 7 [place] [address] Care Team Providers Care Salvage Repairer Name Role Phone Kate Penn MD Primary Care Provider [phone] Reason for Visit * Reason Onset Date Comments Created in error 12/16/2023 Encounter Details Date Type Department Care Team ([facility] st Contact Info) Description 12/16/2023 Telephone [facility] [address] [place], [place] [phone] Kate Penn MD [address] [place], [place] [phone] Created in error Social History Tobacco Use [...] Description 05/30/2025 1:30 PM EST Office Visit [facility] [address] [place] [phone] Kate Penn MD [address] [place] [phone] documented as of this encounter Visit Diagnoses Not on filedocumented in this encounter Additional Health Concerns Assessment Noted Time PHQ-9 Depression Total Score: 7 04/14/20 23 1:37 PM EST documented as of this encounter Care Teams Salvage Repairer Relationship Specialty Start Date End Date Kate Penn MD [address] [place] [address] [phone] PCP - General Family Medicine 03/21/13 documented as of this encounter
--- OUTSIDE RECORDS SUMMARY | 2025-05-03 13:38 | XMS_ITS | Encounter Summary ---
Author Organization [employer] Address 75 [facility] 7 [place] [address] Care Team Providers Care Poleyard Supervisor Name Role Phone Kate Penn MD Primary Care Provider [phone] Encounter Details Date Type Department Care Team ([facility] Contact Info) Description 09/02/2024 Orders Only [facility] [address] [place] [address] Kate Penn MD 230 [place], [place] [phone] Elevated anti-tissue transglutaminase (tTG) IgA level (Primary [...] Description 05/30/2025 1:30 PM EST Office Visit [facility] [address] [place] [address] Kate Penn MD 230 [place] [address] documented as of this encounter Procedures Procedure [...] 11:22 AM EDT) Creatinine, Urine 72.87 mg/dL [facility] Microalbumin Urine <5.0 mg/L [facility] Microalbum Creatinine Ratio Ur TNP <30 ug/mg cr [facility] Comment:Unable to calculate albumin/creatinine ratio due to lowmicroalbumin or creatinine result. Urine 09/06/2024 11:2 2 AM EDT 09/06/2024 1:02 PM EDT us Kate Penn MD LAB URINE ORDERABLES Final Resul t [facility] [address] [place] [phone] * (ABNORMAL) Urinalysis, Complete, with Reflex to Culture (09/06/2024 11:22 AM EDT) Color Urine Yellow [facility] Appearance Urine Clear [facility] PH 6.0 5.0 - 9.0 [facility] Glucose Urine UA Negative Negative mg/dL [facility] Urine Blood Small (1+)(A) Negative [facility] Specific [place] - Urine 1.015 1.005 - 1.025 [facility] Urine Protein Negative Neg-Trace mg/dL [facility] Urine Ketones Negative Negative mg/dL [facility] Nitrite Urine Negative Negative [facility] Leukocyte Esterase Urine Trace(A) Negative [facility] RBC Urine 0-2 0 - 2 /HPF [facility] Urine WBC 6-10 0 - 5 /HPF [facility] Urine Squamous Epithelial Cell 3-5 0 - 2 /HPF [facility] Urine Bacteria None Seen None Seen [facility] Hyaline Casts, Urine 0-2 0 - 2 /LPF [facility] Urine 09/06/2024 11:2 2 AM EDT 09/06/2024 1:02 PM EDT Narrative [facility] - 09/06/2024 1:32 PM EDT Urine, Clean Catch us Kate Penn MD LAB URINE ORDERABLES Final Resul t Performing Organization Address [facility] Co de Phone Number [facility] [address] [place] [phone] * (ABNORMAL) Lactate Dehydrogenase (LD) (09/06/2024 11:22 AM EDT) Lactate Dehydrogenase 221(H) 122 - 220 U/L [facility] Blood Venous blood specimen / Unknown 09/06/2024 11:22 AM EDT 09/06/2024 1:13 PM EDT us Kate Penn MD LAB BLOOD ORDERABLES Final Resul t Performing Organization Address [facility] Co de Phone Number [facility] [address] [place] [phone] [phone] * (ABNORMAL) Comprehensive Metabolic Panel (09/06/2024 11:22 AM EDT) Sodium 142 135 - 145 mmol/L [facility] Potassium 4.0 3.3 - 5.1 mmol/L [facility] Chloride 109(H) 96 - 108 mmol/L [facility] Carbon Dioxide 27 22 - 29 mmol/L [facility] Anion Gap 10(L) 12 - 20 [facility] Urea Nitrogen (BUN) 14 9 - 16 mg/dL [facility] Creatinine, Serum 0.98 0.5 - 1.4 mg/dL [facility] Estimated Glomerular Filt Rate 60 [facility] Comment:Chronic Kidney Disea se: Estimated GFR < 60 mL/min/[id number] Kidney Disease: Estimated GFR < 15 mL/min/1.73m2 Glucose 103 60 - 115 mg/dL [facility] Calcium 9.4 8.4 - 10.2 mg/dL [facility] Bilirubin, Total 0.3 0.0 - 1.0 mg/dL [facility] Aspartate Amino Transferase 24 5 - 31 U/L [facility] Alanine Aminotransferase 29 0 - 31 U/L [facility] Total Protein 7.5 6.5 - 8.0 g/dL [facility] Albumin Level 3.9 3.5 - 5.0 g/dL [facility] Alkaline Phosphatase 63 39 - 117 U/L [facility] Blood Venous blood specimen / Unknown 09/06/2024 11:22 AM EDT 09/06/2024 1:13 PM EDT us Kate Penn MD LAB BLOOD ORDERABLES Final Resul t Performing Organization Address City/State/[facility] Co de Phone Number [facility] [address] [place] [phone] documented in this encounter Visit Diagnoses Diagnosis 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
--- OUTSIDE RECORDS SUMMARY | 2025-05-03 13:39 | XMS_ITS | Encounter Summary ---
Author Organization [employer] Address 75 [facility] 7t [place] [address] Care Team Providers Care Char Filter Tank Tender Head Name Role Phone Kate Penn MD Primary Care Provider [phone] Encounter Details Date Type Department Care Team ([facility] Contact Info) Description 12/17/2024 Orders Only [facility] [address] [place] [address] Kate Penn MD 230 [place] [address] Social History Tobacco Use Types Packs/Day Years [...] PM EST Office Visit [facility] [address] [place] [phone] Kate Penn MD [address] [place] [address] documented as of this encounter Visit Diagnoses Not on filedocumented in this encounter Additional Health Concerns Assessment Noted Time PHQ-9 Depression Total Score: 19 025 11:08 AM EDT documented as of this encounter Care Teams Char Filter Tank Tender Head Relationship Specialty Start Date End Date Kate Penn MD [address] [place] [phone] PCP - General Family Medicine 03/21/13 documented as of this encounter
--- OUTSIDE RECORDS SUMMARY | 2025-05-03 13:39 | XMS_ITS | Encounter Summary ---
Author Organization [employer] Address [address] [facility] [address] 7t [place] [address] Care Team Providers Care Auto Brake Technician Name Role Phone Kate Penn MD Primary Care Provider [phone] Encounter Details Date Type Department Care Team ([facility] st Contact Info) Description 03/06/2025 Results Follow-Up [facility] [address] [place] [address] Jose Carrington MD [address] [place] [address] Culture, Urine, Routine Social History Tobacco Use Types Packs/Day Years [...] Description 05/30/2025 1:30 PM EST Office Visit [facility] [address] [place] [phone] Kate Penn MD [address] [place] [address] documented as of this encounter Visit Diagnoses Not on filedocumented in this encounter Additional Health Concerns Assessment Noted Time PHQ-9 Depression Total Score: 19 025 11:08 AM EDT documented as of this encounter Care Teams Auto Brake Technician Relationship Specialty Start Date End Date Kate Penn MD [address] [place] [phone] PCP - General Family Medicine 03/21/13 documented as of this encounter
--- OUTSIDE RECORDS SUMMARY | 2025-05-03 13:39 | XMS_ITS | Encounter Summary ---
Author Organization [employer] Address 75 [facility] 7t [place] [address] Care Team Providers Care Hand Coremaker Name Role Phone Kate Penn MD Primary Care Provider [phone] Encounter Details Date Type Department Care Team ([facility] Contact Info) Description 05/03/2025 Orders Only GENERIC EXTERNAL DATA DEPARTMENT Provider, Generic External Data Social History Tobacco Use Types Packs/Day Years [...] Description 05/30/2025 1:30 PM EST Office Visit [facility] 230 [place], [place] [phone] Kate Penn MD [address] [place] [address] documented as of this encounter Procedures Procedure Name Priority Date/Time Associated Diagnosis Comments BASIC METABOLIC PANEL Routine 05/03/2025 11:14 AM EST documented in this encounter Results * (ABNORMAL) Basic Metabolic Panel (05/03/2025 11:14 AM EST) Sodium 138 135 - 145 mmol/L [facility] Potassium 4.8 3.3 - 5.1 mmol/L [facility] Chloride 108 96 - 108 mmol/L [facility] Carbon Dioxide 24 22 - 29 mmol/L [facility] Anion Gap 11(L) 12 - 20 [facility] Urea Nitrogen (BUN) 16 9 - 16 mg/dL [facility] Creatinine, Serum 1.04 0.5 - 1.4 mg/dL [facility] Estimated Glomerular Filt Rate 56 [facility] Comment:Chronic Kidney Disea se: Estimated GFR < 60 mL/min/[id number] Kidney Disease: Estimated GFR < 15 mL/min/1.73m2 Glucose 117(H) 60 - 115 mg/dL [facility] Calcium 9.6 8.4 - 10.2 mg/dL [facility] 05/03/2025 11:1 4 AM EST 05/03/2025 11:14 AM EST us Generic External Data Provider LAB BLOOD ORDERAB LES Final Result Performing Organization Address City/State/[facility] Co de Phone Number [facility] [address] [place] [phone] [phone] documented in this encounter Visit Diagnoses Not on filedocumented in this encounter Additional Health Concerns Assessment Noted Time PHQ-9 Depression Total Score: 19 08/29/ 025 11:08 AM EDT documented as of this encounter Care Teams Hand Coremaker Relationship Specialty Start Date End Date Kate Penn MD [address] [place] [address] PCP - General Family Medicine 03/21/13 documented as of this encounter
--- OUTSIDE RECORDS SUMMARY | 2025-05-03 13:39 | XMS_ITS | Encounter Summary ---
Author Organization [employer] Address 75 [facility] 7t [place] [address] Care Team Providers Care Door Assembler Name Role Phone Kate Penn MD Primary Care Provider [phone] Encounter Details Date Type Department Care Team ([facility] Contact Info) Description 10/15/2023 Orders Only [facility] [address] [place], [place] [phone] Kate Penn MD [address] [place], [place] [phone] Acquired hypothyroidism (Primary Dx) Social History Tobacco [...] Description 05/30/2025 1:30 PM EST Office Visit [facility] [address] [place] [address] Kate Penn MD [address] [place] [address] documented as of this encounter Procedures Procedure Name Priority Date/Time Associated Diagnosis Comments TSH Routine 03/07/2024 1:05 PM EDT Acquired hypothyroidism T4, FREE Routine 03/07/2024 1:05 PM EDT Acquired hypothyroidism documented in this encounter Results * T4, Free (03/07/2024 1:05 PM EDT) Free T4 (Free Thyroxine) 1.15 0.71 - 1.85 ng/dL [facility] Blood Venous blood specimen / Unknown 03/07/2024 1:05 PM EDT 03/07/2024 4:37 PM EDT us Kate Penn MD LAB BLOOD ORDERABLES Final Resul t [facility] [address] [place] [phone] [phone] * TSH (03/07/2024 1:05 PM EDT) Thyroid Stimulating Hormone 0.75 0.32 - 4.0 uIU/mL [facility] Comment:TSH 3rd Generation ( [facility]) Blood Venous blood specimen / Unknown 03/07/2024 1:05 PM EDT 03/07/2024 4:37 PM EDT Kate Penn MD LAB BLOOD ORDERABLES Final Resul t [facility] [address] [place] [address] [phone] documented in this encounter Visit Diagnoses Diagnosis Acquired hypothyroidism- Primary Unspecified hypothyroidism documented in this encounter Additional Health Concerns Assessment Noted Time PHQ-9 Depression Total Score: 7 04/14/20 23 1:37 PM EST documented as of this encounter Care Teams Door Assembler Relationship Specialty Start Date End Date Kate Penn MD [address] [place] [phone] PCP - General Family Medicine 03/21/13 documented as of this encounter
--- OUTSIDE RECORDS SUMMARY | 2025-05-03 13:39 | XMS_ITS | Encounter Summary ---
Author Organization [employer] Address 75 [facility] 7 [place] [address] Care Team Providers Care Sales Representative Leather Goods Name Role Phone Kate Penn MD Primary Care Provider [phone] Reason for Visit * Reason Onset Date Comments Appointment Request 03/23/2025 Encounter Details Date Type Department Care Team ([facility] st Contact Info) Description 03/23/2025 Telephone [facility] [address] [place] [address] Kate Penn MD [address] [place], [place] [phone] Appointment Request Social History Tobacco Use Types Packs/Day Years [...] encounter Miscellaneous Notes * Telephone Encounter - Dena Rogers - 03/23/2025 10:08 AM EDT Tc from pt requesting to reschedule missed apt today 03/23 , Director Adult unable to schedule due to limited schedule . Pt to be placed on recall Contact pt at [phone] (frisian) documented in this encounter Plan of Treatment Upcoming Encounters Date Type Department Care Team (Late st Contact Info) Description 05/30/2025 1:30 PM EST Office Visit [facility] [address] [place] [address] Kate Penn MD [address] [place] [address] documented as of this encounter Visit Diagnoses Not on filedocumented in this encounter Additional Health Concerns Assessment Noted Time PHQ-9 Depression Total Score: 19 025 11:08 AM EDT documented as of this encounter Care Teams Sales Representative Leather Goods Relationship Specialty Start Date End Date Kate Penn MD [address] [place] [address] PCP - General Family Medicine 03/21/13 documented as of this encounter
--- OUTSIDE RECORDS SUMMARY | 2025-05-03 13:39 | XMS_ITS | Encounter Summary ---
Author Organization [employer] Address [address] [place] [address] Care Team Providers Care Dish Cloth Inspector Name Role Phone Kate Penn MD Primary Care Provider [phone] Reason for Referral * Chiropractic (Routine) - Closed Specialty Diagnoses / Procedures Referred By Mariluz duval Referred To Contact Chiropractic Medicine Diagnoses Chronic low back pain, unspecified back pain laterality, unspecified whether sciatica present Kate Penn MD [address] [place] [address] Phone: tel: fax: [facility] [address] [place] [address] Phone: tel: fax: Referral ID Status Reason Start Date Expiration Date V isits Requested Visits Authorized [id number] Closed Specialty Services Required 11/11/2023 11/10/2024 20 20 Encounter Details Date Type Department Care Team (Late st Contact Info) Description 11/06/2023 Orders Only [facility] [address] [place] [phone] Kate Penn MD [address] [place] [address] [phone] Chronic low back pain, unspecified back pain [...] Description 05/30/2025 1:30 PM EST Office Visit [facility] [address] [place] [address] Kate Penn MD 230 [place], [place] [phone] Scheduled Referrals Name Type Priority Associated Diagnoses [...] documented as of this encounter Care Teams Dish Cloth Inspector Relationship Specialty Start Date End Date Kate Penn MD [address] [place] [phone] PCP - General Family Medicine 03/21/13 documented as of this encounter
--- OUTSIDE RECORDS SUMMARY | 2025-05-03 13:39 | XMS_ITS | Encounter Summary ---
Author Organization [employer] Address 75 [facility] 7t [place] [address] Care Team Providers Care Citizenship Teacher Name Role Phone Kate Penn MD Primary Care Provider Encounter Details Date Type Department Care Team ([facility] st Contact Info) Description 05/06/2023 Orders Only [facility] [address] [place], [place] [phone] Kate Penn MD [address] [place], [place] [phone] Chronic low back pain, unspecified back pain [...] Description 05/30/2025 1:30 PM EST Office Visit [facility] [address] [place] [address] Kate Penn MD [address] [place] [address] documented as of this encounter Visit Diagnoses Diagnosis Chronic low back pain, unspecified back pain laterality, unspecified whether sciatica present- Primary documented in this encounter Additional Health Concerns Assessment Noted Time PHQ-9 Depression Total Score: 7 04/14/20 23 1:37 PM EST documented as of this encounter Care Teams Citizenship Teacher Relationship Specialty Start Date End Date Kate Penn MD [address] [place] [address] PCP - General Family Medicine 03/21/13 documented as of this encounter
--- OUTSIDE RECORDS SUMMARY | 2025-05-03 13:39 | XMS_ITS | Encounter Summary ---
Author Organization [employer] Address 75 [facility] 7t [place] [address] Care Team Providers Care Metal Sander Name Role Phone Kate Penn MD Primary Care Provider [phone] Encounter Details Date Type Department Care Team ([facility] Contact Info) Description 09/07/2024 Orders Only [facility] [address] [place] [address] Kate Penn MD [address] [place] [address] Social History Tobacco Use Types Packs/Day Years [...] Description 05/30/2025 1:30 PM EST Office Visit [facility] [address] [place] [phone] Kate Penn MD [address] [place] [address] documented as of this encounter Visit Diagnoses Not on filedocumented in this encounter Additional Health Concerns Assessment Noted Time PHQ-9 Depression Total Score: 19 025 11:08 AM EDT documented as of this encounter Care Teams Metal Sander Relationship Specialty Start Date End Date Kate Penn MD [address] [place] [address] PCP - General Family Medicine 03/21/13 documented as of this encounter
--- OUTSIDE RECORDS SUMMARY | 2025-05-03 13:39 | XMS_ITS | Encounter Summary ---
Author Organization [employer] Address [address] [address] Care Team Providers Care Blind Escort Name Role Phone Kate Penn MD Primary Care Provider Encounter Details Date Type Department Care Team ([facility] Contact Info) Description 06/05/2022 Orders Only [facility] [address] [place] [address] [phone] Kate Penn MD [address] [place] [address] [phone] Mild intermittent asthma without complication (Primary Dx) [...] Upcoming Encounters Date Type Department Care Team ([facility] Contact Info) Description 05/30/2025 1:30 PM EST Office Visit [facility] [address] [place] [address] [phone] Kate Penn MD [address] [place] [address] [phone] documented as of this encounter Visit Diagnoses Diagnosis Mild intermittent asthma without complication- Primary documented in this encounter Care Teams Blind Escort Relationship Specialty Start Date End Date Kate Penn MD [address] [place] [address] PCP - General Family Medicine 03/21/13 documented as of this encounter
--- OUTSIDE RECORDS SUMMARY | 2025-05-03 13:39 | XMS_ITS | Encounter Summary ---
Author Organization [employer] Address 75 [facility] 7 [place] [address] Care Team Providers Care Stevedoring Superintendent Name Role Phone Kate Penn MD Primary Care Provider [phone] Reason for Visit * Reason Onset Date Comments may recall 04/28/2025 Encounter Details Date Type Department Care Team ([facility] st Contact Info) Description 04/28/2025 Telephone [facility] [address] [place] [address] Kate Penn MD [address] [place], [place] [phone] may recall Social History Tobacco Use Types Packs/Day Years [...] encounter Miscellaneous Notes * Telephone Encounter - Nila Friend MA - 04/28/2025 10:11 AM EST ..Telephone call to patient to schedule the following recall: Visit type: Follow up Appointment notes: DM Patient agree to appointment on 05/30 at 130 PM with Isamar. documented in this encounter Plan of Treatment Upcoming Encounters Date Type Department Care Team (Late st Contact Info) Description 05/30/2025 1:30 PM EST Office Visit [facility] [address] [place] [address] Kate Penn MD [address] [place] [address] documented as of this encounter Visit Diagnoses Not on filedocumented in this encounter Additional Health Concerns Assessment Noted Time PHQ-9 Depression Total Score: 19 025 11:08 AM EDT documented as of this encounter Care Teams Stevedoring Superintendent Relationship Specialty Start Date End Date Kate Penn MD [address] [place] [address] PCP - General Family Medicine 03/21/13 documented as of this encounter
--- OUTSIDE RECORDS SUMMARY | 2025-05-03 13:39 | XMS_ITS | Encounter Summary ---
Author Organization [employer] Address 75 [facility] 7 [place] [address] Care Team Providers Care Emergency Manager Name Role Phone Kate Penn MD Primary Care Provider [phone] Reason for Visit * Reason Onset Date Comments Med Refill 12/26/2024 Encounter Details Date Type Department Care Team (Late st Contact Info) Description 12/26/2024 Refill [facility] [address] [place] [address] Kate Penn MD [address] [place], [place] [phone] Social History Tobacco Use Types Packs/Day Years [...] Description 05/30/2025 1:30 PM EST Office Visit [facility] [address] [place] [address] Kate Penn MD [address] [place] [address] documented as of this encounter Visit Diagnoses Not on filedocumented in this encounter Additional Health Concerns Assessment Noted Time PHQ-9 Depression Total Score: 19 025 11:08 AM EDT documented as of this encounter Care Teams Emergency Manager Relationship Specialty Start Date End Date Kate Penn MD [address] [place] [address] PCP - General Family Medicine 03/21/13 documented as of this encounter
--- OUTSIDE RECORDS SUMMARY | 2025-05-03 13:39 | XMS_ITS | Clinical Summary ---
Author Organization [facility] Address [address] [place] [address] Phone Care Team Providers Care Rigging Loft Mechanic Name Role Phone Unavailable Primary Care Provider [...] Info) Description 05/09/2025 2:30 PM EST Appointment [facility] X[facility] [address] [place] [address] Health Maintenance Due Date Last Done Comments Breast Cancer Screening 1975 Colorectal Cancer Screening: Colonoscopy 1975 DTaP,Tdap,and Td Vaccines (1 - Tdap) 1992 Hepatitis B Vaccines (1 of 3 - 19+ 3-dose series) 1992 Cervical Cancer Screening: P ap Smear 1994 Pneumococcal Vaccine: 50+ Ye ars (1 of 1 - PCV) 2023 Zoster Vaccines (1 of 2) 2023 Depression Screening 06/08/2024 HIV Screening 10/31/2024 Hepatitis C Screening 10/31/2024 Social Influencers of Health Screening 10/31/2024 COVID-19 Vaccine (1 - 2024-2 6 season) 2025 Influenza Vaccine (#1) 2025 RSV [...]
--- OUTSIDE RECORDS SUMMARY | 2025-05-03 13:39 | XMS_ITS | Clinical Summary ---
Author Organization [employer] Address [address] [facility] [address] [place] [address] Care Team Providers Care New Car Inspector Name Role Phone Kate Penn MD Primary Care Provider [phone] Allergies No known active allergies Medications LORazepam (Ativan) 0.5 MG tablet Take 1 tablet by mouth if needed at bedtime. Active sodium chloride ([place]) 0.65 % nasal spray Use intranasally to moisten nose and/or before & after blowing nose, as needed / [employer] 0 Active Witch Anali (Medicated Pads) 50 % pads Apply topically in the morning. 2 Active Diclofenac Sodium 1 % gel Apply to affected area once or twice daily as needed for pain 150 g 3 4 Active Additional Information Patient not taking.Reported on 02/16/2025 Lidoderm 5 % patch APPLY 1-2 PATCHES TO SKIN EVERY DAY NEEDED FOR PAIN. MAY LEAVE ON UP TO 12 HOURS THEN REMOVE POR 12 HOURS 60 patch 2 4 Active levothyroxine (Synthroid, Levoxyl) 100 MCG tablet TAKE 1 TABLET BY MOUTH EVERY DAY 90 tablet 3 5 Active budesonide-formo terol (Symbicort) 80-4.5 MCG/ACT inhaler Inhale 2 puffs in the morning and at bedtime. Take 1 or 2 puffs as needed for asthma symptoms. Rinse mouth with water after use to reduce aftertaste and incidence of candidiasis. Do not swallow. 1 each 3 5 026 Active montelukast (Singulair) 10 MG tablet Take 1 tablet (10 mg) by mouth at bedtime. 90 tablet 3 5 Active Additional Information Patient not taking.Reported on 02/16/2025 SUMAtriptan (Imitrex) 50 MG tabletIndication s:Migraine without aura and without status migrainosus, not intractable Take 1 tablet (50 mg) by mouth 1 (one) time if needed for migraine. May repeat dose once in 2 hours if no relief. Do not exceed 2 doses in 24 hours. 10 tablet 1 5 Active Additional Information Patient not taking.Reported on 02/16/2025 cyclobenzaprine (Flexeril) 5 MG tablet TAKE 1 OR 2 TABLETS BY MOUTH THREE TIMES DAILY NEEDED FOR BACK PAIN 45 tablet 3 5 Active Additional Information Patient not taking.Reported on [...] per day. 90 tablet 3 5 Active Nirmatrelvir&Rit onavir 300/100 (Paxlovid, 300/100,) 20 x 150 MG & 10 x 100MG tablet therapy packIndications: COVID-19 Take 1 Dose by mouth at noon and 1 Dose in the evening. 30 each 5 Active fluticasone (Flonase) 50 MCG/ACT nasal sprayIndications :COVID-19 Administer 1-2 sprays into each nostril Once per day. Shake gently. Before first use, prime pump. After use, clean tip and replace cap. Sent refills by insurance request but pt does not need refills only use for 154 to 21 days for acute sinusitis 16 g 2 5 026 Active escitalopram (Lexapro) 10 MG tablet Take 10 mg by mouth at bedtime. 5 Active polyethylene glycol, PEG, 3350 (GaviLAX) 17 GM/SCOOP powderIndication s:Constipation, unspecified constipation type MIX 17 GRAMS IN 8-12 OZ FLUID LIKE WATER AT BEDTIME NEEDED FOR CONSTIPATION 510 g 2 5 Active Active Problems Problem Noted Date [...] 1:35 PM EDT): - Seen by director furniture - Head up tilt table test is [...] 1:31 PM EDT): - seen by director furniture on 10/30/24 for syncopal episode. Likely vasovagal. - upcoming appointment for head up tilt table test. Assessment & Plan (08/29/2024 12:11 PM EDT): -Reported home BP low but normal; higher in the clinic -Pt was advised to bring her BP monitor so that we can check that the machine is functioning normally -Pt has upcoming appointment with director furniture in October Assessment & Plan (07/21/2024 4:08 [...] and escitalopram - Current [facility] provider is [facility] -Pt has labile mood possibly due to menopause -Continue current treatment plan -Pt requests BOARD HANDLER service so that someone can stay with her during the day -Recommended day program previously Assessment & Plan (08/29/2024 12:15 PM EDT): - Currently receiving lorazepam and escitalopram - Current [facility] provider is [facility] -Pt has labile mood possibly due to menopause -Continue current treatment plan -Pt requests BOARD HANDLER service so that someone can stay with [...] and escitalopram - will check her current [facility] provider and treatment plan Allergic rhinitis [...] Encounters Date Type Department Care Team Description 05/03/2025 Orders Only GENERIC EXTERNAL DATA DEPARTMENT Provider, Generic External Data 04/28/2025 Telephone [facility] [address] [place] [address] Kate Penn MD may recall 04/06/2025 Outside Procedure [facility] [address] [place] [address] Jared, Nuha, OD Presbyopia (Primary Dx) 04/05/2025 11:00 AM EDT Office Visit [facility] [address] [place] [address] Jared, Nuha, OD Myopia of both eyes (Primary Dx) 03/31/2025 Refill [facility] [address] [place] [address] Jose Carrington MD Constipation, unspecified constipation type 03/23/2025 Telephone [facility] [address] [place] [phone] Kate Penn MD No Show 03/23/[address] [address] Kate Penn MD Appointment Request 03/22/[address] [address] Kate Penn MD chart prep 03/08/[address] [address] Kate Penn MD 03/06/2025 Results Follow-Up [facility] [address] [place] [address] Jose Carrington MD Culture, Urine, Routine 03/04/2025 12:40 PM EDT Office Visit [facility] [address] [place] [phone] Jose Carrington MD Acute cystitis with hematuria (Primary Dx); Constipation, unspecified constipation type 03/04/2025 Travel 02/24/2025 1:00 PM EDT Office Visit [facility] [address] [place] [address] Jared, Nuha, OD 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); Combined forms of age-related cataract of both eyes; Presbyopia 02/24/2025 Travel 02/16/2025 3:00 PM EDT Office Visit [address] [address] Elida Whitlock MD COVID-19 (Primary Dx); Elevated BP without diagnosis of hypertension 02/16/2025 Travel 02/16/[address] [address] Kate Penn MD Nurse Triage from Last 3 Months Immunizations Immunization Administration [...] the past 12 months, has t he [employer] or [employer] threatened to shut off services in your [...] Description 05/30/2025 1:30 PM EST Office Visit [facility] [address] [place] [phone] Kate Penn MD [address] [place] [phone] Health Maintenance Due Date Last Done Comments CT Colonography 1975 Colonoscopy 1973 Colorectal Cancer Screening 1973 FIT DNA/Cologuard 1973 FIT 1973 FOBT 1973 Sigmoidoscopy 1973 Alcohol/Substance Use Screening 1985 Family Planning (PISQ) 1988 Pap Smear 1994 RSV Patients and Patients Aged 60 years or older (1 - Risk 50-74 years 1-dose series) 2023 Zoster Vaccines (1 of 2) 2023 COVID-19 Vaccine (1 - season) 2025 Influenza Vaccine (#1) 2025 , 04/14/2023, 03/09/2018, Additional history exists Depression Monitoring 06/06/2025 12/05/2024, 025 SDOH Screening 08/29/2025 08/29/2024 Mammogram 10/04/2025 10/05/2023, 06/10, 07/07/2022, Additional history exists Disability Screening 12/05/2025 12/05/2024 Tobacco Screening 02/24/2026 02/24/2025 Cervical Cancer Screening 06/24/2026 HPV/Cotest 06/24/2026 06/24/2021, 06/08, 08/08/2019 Lipid Panel 10/14/2028 10/15/2023, 09/10/2021 DTaP/Tdap/Td Vaccines (3 - Td or Tdap) 04/14/2033 04/14/2023, 05/09/2011, 12/20/2004 Hepatitis A Vaccines Aged Out 08/12/2010, 10/23/19 [...] METABOLIC PANEL Routine 05/03/2025 11:14 AM EST CULTURE, URINE, ROUTINE Routine 03/04/2025 12:56 PM EDT Acute cystitis with hematuria POCT INFLUENZA B (ID NOW RAPID MOLECULAR) [...] Relevant to Health Maintenance Results * (ABNORMAL) Basic Metabolic Panel (05/03/2025 11:14 AM EST) Sodium 138 135 - 145 mmol/L [facility] Potassium 4.8 3.3 - 5.1 mmol/L [facility] Chloride 108 96 - 108 mmol/L [facility] Carbon Dioxide 24 22 - 29 mmol/L [facility] Anion Gap 11(L) 12 - 20 [facility] Urea Nitrogen (BUN) 16 9 - 16 mg/dL [facility] Creatinine, Serum 1.04 0.5 - 1.4 mg/dL [facility] Estimated Glomerular Filt Rate 56 [facility] Comment:Chronic Kidney Disea se: Estimated GFR < 60 mL/min/1.75m4Eradru Kidney Disease: Estimated GFR < 15 mL/min/1.73m2 Glucose 117(H) 60 - 115 mg/dL [facility] Calcium 9.6 8.4 - 10.2 mg/dL [facility] 05/03/2025 11:1 4 AM EST 05/03/2025 11:14 AM EST us Generic External Data Provider LAB BLOOD ORDERAB LES Final Result Performing Organization Address City/State/[facility] Co de Phone Number [facility] [address] [place] [phone] * Culture, Urine, Routine (03/04/2025 12:56 PM EDT) Urine Urine specimen obtained by clean catch procedure / Unknown 03/04/2025 12:56 PM EDT 03/04/2025 1:58 PM EDT Comment:UACC Narrative [facility] - 03/06/2025 7:34 AM EDT Escherichia coli Quant > 100,000 cfu/mL Strep agalactiae (Grp B) Quant 10,000 to 50,000 cfu/mL Susc N/A Susceptibility not routinely performed on this isolate. Escherichia coli: Ampicillin 8(S) Escherichia coli: Cefazolin (Urine) 2(S) Escherichia coli: Cefepime <=0.12(S) Escherichia coli: Ceftriaxone <=0.25(S) Escherichia coli: Ciprofloxacin <=0.06(S) Escherichia coli: Gentamicin <=1(S) Escherichia coli: Nitrofurantoin <=16(S) Escherichia coli: Trimethoprim/Sulfamethoxazole <=20(S) Specimen Source: Urine clean catch us Jose Carrington MD LAB MICROBIOLOGY - GENERAL ORDER CARLITO Final Result Performing Organization Address [facility] de Phone Number [facility] [address] [place] [phone] * POCT Rapid Influenza B PIEDRA ID NOW (02/16/2025 3:46 PM EDT) Influenza B Negative Negative, Indeterminate [facility] QC Media Lot # [id number] [facility] Lot# Expiration Date [facility] Swab 02/16/2025 3:46 PM EDT Elida Estrella MD POINT OF CARE REEMA T ENTER/EDIT ORDERABLES Final Result Performing Organization Address [facility] Co de Phone Number [facility] [address] [place] [phone] * POCT Rapid Influenza A PIEDRA ID NOW (02/16/2025 3:46 PM EDT) Influenza A Negative Negative, Indeterminate [facility] QC Media Lot # [id number] [facility] Lot# Expiration Date [facility] Swab 02/16/2025 3:46 PM EDT Elida Estrella MD POINT OF CARE REEMA T ENTER/EDIT ORDERABLES Final Result Performing Organization Address [facility] Co de Phone Number [facility] [address] [place] [phone] * (ABNORMAL) POCT Rapid Covid-19 PIEDRA ID NOW (02/16/2025 3:45 PM EDT) Coronavirus Antigen PCR Positive (A) Negative, Indeterminate, None Detected, Invalid, Specimen unsatisfactory for evaluation, Weakly Positive, 2+ QC Media Lot # [id number] Lot# Expiration Date ,0 26 Swab 02/16/2025 3:45 PM EDT us Elida Estrella MD POINT OF CARE REEMA T ENTER/EDIT ORDERABLES Final Result * (ABNORMAL) Lipid Panel with Reflex to Direct LDL (10/15/2023 11:32 AM EDT) Triglycerides 126 <150 mg/dL [facility] Comment:Desirable Triglyceri de: less than 150 mg/dLBorderline High Triglyceride 150-199 mg/dLHigh Triglyceride: 200-499 mg/dLVery High Triglyceride: greater than or equal to 5OO mg/dL Cholesterol 177 <200 mg/dL [facility] Comment:Desirable Cholestero l: less than 200 mg/dLBorderline High Cholesterol: 200-239 mg/dLHigh Cholesterol: greater than 239 mg/dL LDL Cholesterol Calculated 101(H) <100 mg/dL [facility] Comment:Desirable LDL: less than 100 mg/dLNear Optimal/Above Optimal LDL: 110- 129 mg/dLBorderline High LDL: 130-159 mg/dLHigh LDL: 160-189 mg/dLVery High LDL: greater than or equal to 190 mg/dL HDL Cholesterol 51 >40 mg/dL [facility] Comment:Desirable HDL: great er than 40 mg/dL Note: This HDL assay may give artificially low results in patients with liver disease. Blood 10/15/2023 11:3 2 AM EDT 10/15/2023 1:19 PM EDT us Kate Penn MD LAB BLOOD ORDERABLES Final Resul t [facility] [address] [place] [address] [phone] * Hepatitis C Antibody with Reflex to HCV, RNA, Quantitative, Real-Time PCR (10/15/2023 11:32 AM EDT) Hepatitis C Antibody Nonreactive Nonreactive [facility] Comment:Antibodies to HCV no t detected; does not exclude early acuteHCV infection. Blood Venous blood specimen / Unknown 10/15/2023 11:32 AM EDT 10/15/2023 1:19 PM EDT Kate Penn MD LAB BLOOD ORDERABLES Final Resul t Performing Organization Address [facility] Co de Phone Number [facility] [address] [place] [phone] * HIV-1/2 Antigen and Antibodies, Fourth Generation, with Reflexes (10/15/2023 11:32 AM EDT) HIV AB/AG Nonreactive Nonreactive [facility] Comment:HIV-1 p24 Ag and/or HIV-1/HIV-2 Ab not detected.A test result that is nonreactive does not exclude thepossibility of exposure to or infection with HIV-1 and/orHIV-2. Nonreactive results in this assay for individualswith prior exposure to HIV-1 and/or HIV-2 may be due toantigen and antibody levels that are below the limit ofdetection of this assay.The ProZyme HIV Ag/Ab Combo assay result andsupplemental assay results should be interpreted inconjunction with the patient's clinical presentation,history and other laboratory results. If the results areinconsistent with clinical evidence, additional testing issuggested to confirm the result. Blood Venous blood specimen / Unknown 10/15/2023 11:32 AM EDT 10/15/2023 1:19 PM EDT Kate Penn MD LAB BLOOD ORDERABLES Final Resul t Performing Organization Address City/[facility]/ZIP Co de Phone Number [facility] [address] [place] [phone] * BI Mammogram Screening Tomosynthesis Bilateral (10/05/2023 9:00 AM EDT) Anatomical Region Laterality Modality Breast Bilateral Mammography 10/05/2023 9:00 AM EDT Narrative 11/01/2023 6:29 AM EDT [facility] [address] [place] [address] Mammography Report Signed Patient: Elida Putnam MR#: [id number] : 1975 Acct:[id number] Age/Sex: 48 / F ADM Date: 10/05/23 Loc: [facility] Attending Dr: Kate Penn MD Ordering Physician: Kate Penn MD Results: 1Negative Date of Service: 10/05/23 Follow Up: 1 Year From Orig ina Mammogram Procedure(s): MM tomosynthesis screening BI Accession Number(s): [id number] cc: Kate Penn MD EXAMINATION: MM SCREENING [...] in OV> 11/01/23 0625 DD/ 0900 TD/TT: Steel Melter: Procedure Note Donotuseinterpreter, Image - 11/01/2023 [facility] [address] [place] [address] Mammography Report Signed Patient: Elida Putnam DMR#: [id number] : 1975Acct:[id number] Age/Sex: 48 / FADM Date: 10/05/23 Loc: HO.MAMMO Attending Dr: Kate Penn MD Ordering Physician: Kate Penn MDResults: 1Negative Date of Service: 10/05/23Follow Up: 1 Year From Orig ina Mammogram Procedure(s): MM tomosynthesis screening BI Accession Number(s): [id number] cc: Kate Penn MD EXAMINATION: MM SCREENING [...] for their next mammogram. Dictated By: Alvina Laar MD Signed By: <Electronically signed by Alvina Lara MD in OV> 11/01/23 0625 DD/ 0900 TD/TT: Steel Melter: Kate Penn MD [facility] BI PROCEDURES Final Result * HPV E6/E7 RFLX LEEANN 16 18/45 (06/24/2021 12:11 PM EST) HPV 16 RNA [facility] HPV 18/45 RNA [facility] HPV E6 E7 ADD [facility] HPV mRNA E6/E7 rflx Not Detected Not Detected [facility] Comment: Methodology: [employer] Console Operator Track-Mediated Amplification This assay detects E6/E7 viral messenger RNA (mRNA) from 14 high-risk HPV types (16,18,31,33,35,39,45,51,52,56,58,59,66,68). The analytical performance characteristics of this assay have been determined by [employer]. The modifications have not been cleared or approved by the FDA. This assay has been validated pursuant to the CLIA regulations and is used for clinical purposes. For additional information, please refer to http://education.Nu-B-2B/faq/OZC185w6 (This link if provided for information/ educational purposes only.) THIS TEST WAS PERFORMED AT: [facility] [address] [place] [address] [address],[place] [address] ISIDRO AVILA MD 06/24/2021 12:1 1 PM EST Rene Dumont MD HISTORICAL/NON ORDERABLE LABS Fi nal Result [facility] [address] from Last 3 Months or Most Recently Relevant to Health Maintenance Insurance BMdr [id number] SAHARA Mcmanus [id number] Care Teams New Car Inspector Relationship Specialty Start Date End Date Kate Penn MD [address] [place] [address] PCP - General Family Medicine 03/21/13
--- OUTSIDE RECORDS SUMMARY | 2025-05-03 13:39 | XMS_ITS | Encounter Summary ---
Author Organization [employer] Address [address] [facility] [address] [place] [address] Care Team Providers Care Program Attendant Name Role Phone Kate Penn MD Primary Care Provider [phone] Reason for Visit * Reason Onset Date Comments Med Refill 03/08/2025 Encounter Details Date Type Department Care Team (Late st Contact Info) Description 03/08/2025 Refill [facility] [address] [place] [address] Kate Penn MD [address] [place], [place] [phone] Social History Tobacco Use Types Packs/Day Years [...] 1:30 PM EST Office Visit [facility] [address] [place] [address] Kate Penn MD [address] [place] [phone] documented as of this encounter Visit Diagnoses Not on filedocumented in this encounter Additional Health Concerns Assessment Noted Time PHQ-9 Depression Total Score: 19 025 11:08 AM EDT documented as of this encounter Care Teams Program Attendant Relationship Specialty Start Date End Date Kate Penn MD [address] [place] [phone] PCP - General Family Medicine 03/21/13 documented as of this encounter
== END 2025-05-03 11:01 | disposition home or self-care (01) ==
LOC: HO.LAB 11:00
PROVIDERS: PCP Family Medicine; Visit Provider Internal Medicine Cardiovascular Disease
DX: R55 Syncope and collapse (principal)
CPT/HCPCS: 36415; 80048